=== PATIENT | female | born 1940 | race Caucasian/White ===

== ENCOUNTER → 2017-04-11 | Outpatient (CLI) | payer OTHER ==
[~2017-04-11] MED LIST: ASPI81TA21 PO; CHOL2000 PO; CHOL4POW6 PO; COLON HEALTH PO; CYAN10005 PO; DILT-115 PO; DIPH25CA5 PO; LISI10TA PO; MULT-506 PO; PRLSR20 PO; SIMV20TA2 PO; TYLOTC500 PO
--- NOTE | 2017-04-11 10:55 | DIAGNOSTIC IMAGING REPORT ---
KUB HISTORY: Bilateral kidney stones. Follow-up study. N20.0 [id number] COMPARISON: KUB 02/17/2016. FINDINGS: The bowel gas pattern is non-obstructive. There is no organomegaly. Left-sided nephrolithiasis again seen measuring up to 6 mm. Multiple phleboliths redemonstrated. No definite right nephrolithiasis or ureteral calculi identified. No pneumoperitoneum or pneumatosis. No fracture. Surgical clips of the right upper abdomen suggest prior cholecystectomy. IMPRESSION: Stable appearance of left-sided nephrolithiasis. Electronically signed by: Derek Alcaraz M.D. 04/11/2017 10:54 AM Dictated Date/Time: 04/11/2017 10:52 AM
== END | disposition home or self-care (01) ==
LOC: C.RAD 10:28
PROVIDERS: ATTEND Urology
DX: N20.0 Calculus of kidney (principal)

== ENCOUNTER 2017-09-23 18:14 | Emergency (ER) | payer OTHER ==
[~2017-09-23] VITALS: Ht 160 cm; Wt 84.3 kg
[~2017-09-23 18:14] MED LIST changes: +ASPI-319 PO; -ASPI81TA21 PO
[2017-09-23 18:39] VITALS: TEMP 36.8; Ht 160 cm; Wt 84.3 kg
[2017-09-23 20:14] LABS: BASO % 0.1 %; BASO ABS # 0.02 K/uL (0-0.2); EOS % 0.1 %; EOS ABS # 0.02 K/uL (0-0.5); HEMATOCRIT 39.1 % (37-47); HEMOGLOBIN 13.2 g/dL (12.0-16.0); IG# 0.04 K/uL (0.00-0.02); LYMPH % 13.5 %; LYMPH ABS # 1.81 K/uL (1.2-3.4); MEAN CELL VOLUME 91.4 fL (80-100); MEAN CORPUSCULAR HEMOGLOBIN 30.8 pg (25-34); MEAN CORPUSCULAR HGB CONC 33.8 g/dl (32-36); MONO % 7.5 %; NEUT % 78.5 %; NEUT ABS # 10.49 K/uL (1.4-6.5); PLATELET COUNT 263 K/uL (130-400); RED CELL DISTRIBUTION WIDTH CV 13.6 % (11.5-14.5); WHITE BLOOD COUNT 13.38 K/uL (4.8-10.8)
[2017-09-23] MEDS ORDERED: CEFTRIAXONE SOD INJ 1 GM ADDVIAL IV STA (20:23)
[2017-09-23] MEDS ORDERED: CEFD300C2 PO (20:36)
--- NOTE | 2017-09-23 20:37 | EMERGENCY ROOM VISIT NOTE ---
ED Visit Note First contact with patient: 18:51 CHIEF COMPLAINT: Dysuria HISTORY OF PRESENT ILLNESS: This 77-year-old female patient presents to the emergency department, ambulatory, complaining of dysuria which began last night. The patient states she did have similar symptoms approximately 2 weeks ago, and was started on ciprofloxacin by her PCP. She states when the culture grew, she was contacted by her PCP and advised the ciprofloxacin was resistant. The patient states by that time, she was feeling improved on the antibiotic, so declined a change in antibiotics. She states she was fine for approximately 1 week, however the symptoms returned yesterday. The patient has been taking Pyridium as prescribed by her PCP, but states it has not been helping significantly with her symptoms. She does have a history of recurrent kidney stones and was seeing a urologist, but states this is completely different than when she experiences kidney stones, as with stones she gets fever and abdominal pain. She has not been febrile. She denies any flank pain, but does have mild suprapubic discomfort. She does report a cystocele, but does not have any treatment. She describes constant pain in the urethra that radiates up into the bladder. She does have urinary frequency and urgency. She states her urine is cloudy, but denies any foul smell. REVIEW OF SYSTEMS: A 10 system review of systems was performed with positives and pertinent negatives listed in the history of present illness. All other systems were reviewed and are negative. ALLERGIES: Amoxicillin, penicillin MEDICATIONS: Zocor, vitamins, Prilosec, diltiazem PMH: Hyperlipidemia, GERD SOCIAL HISTORY: Patient lives locally with family. She denies drug, alcohol, tobacco use. PHYSICAL EXAM: VITALS: Vitals are noted on the nurse's note and reviewed by myself. Vital signs stable, with slightly elevated blood pressure. GENERAL: This is a 77-year-old white female, in no acute distress, nondiaphoretic, well-developed well-nourished. SKIN: The skin was without rashes, erythema, edema, or bruising. There is no tenting of the skin. Capillary reflex less than 2 seconds. HEAD: Normocephalic atraumatic. EARS: External auditory canals clear, tympanic membranes pearly hernández without erythema or effusion bilaterally. EYES: Pupils equal round and reactive to light and accommodation. Conjunctivae without injection, sclerae without icterus. Extraocular movements intact. NOSE: Patent, turbinates without inflammation or discharge. No sinus tenderness. MOUTH: Mucous membranes moist. Tonsils are not enlarged. Pharynx without erythema or exudate. Uvula midline. Airway patent. Tongue does not deviate. NECK: Supple without nuchal rigidity. No lymphadenopathy. No thyromegaly. Cervical spine is nontender. No JVD. HEART: Regular rate and rhythm without murmurs gallops or rubs. LUNGS: Clear to auscultation bilaterally without wheezes, rales or rhonchi. No dullness to percussion. No retractions or accessory muscle use. ABDOMEN: Positive bowel sounds x 4. Normal tympanic percussion. Mild suprapubic tenderness. The abdomen was otherwise soft, nontender, without masses or organomegaly. Saxena sign negative. No guarding or rebound tenderness. No CVA tenderness. MUSCULOSKELETAL: No muscle atrophy, erythema, or edema noted. Full range of motion without joint tenderness in all extremities. No tenderness to palpation. Normal gait. Strength 5/5 throughout. NEURO: Patient was alert and oriented to person place and time. Normal sensation to light and sharp touch. Deep tendon reflexes 2+ throughout. No focal neurological deficits. EMERGENCY DEPARTMENT COURSE: The patient was seen and evaluated as above. Previous medical records were obtained and reviewed. The patient's previous urine culture did grow beta Streptococcus group B and E. coli. This was susceptible to ceftriaxone and cefepime. It was resistant to ciprofloxacin. Due to the similar history of symptoms 2 weeks ago and proper management with ciprofloxacin, basic labs were obtained. Patient slight leukocytosis of 13, 000. There is no significant anemia or thrombocytopenia. The patient's renal function and electrolytes were normal. Urinalysis was positive for 2+ occult blood, nitrates, leukocyte esterase, and 1+ bacteria. Based on the patient's symptoms and symptoms consistent with previous stone, imaging was deferred. The patient does have a follow-up appointment on Tuesday with her PCP. She was given 1 g Rocephin IV here in the emergency department. She will be discharged on Omnicef with close outpatient follow-up by her PCP. The patient was agreeable to this assessment and plan. The patient was seen and evaluated by Dr. Rowland, who was agreeable to the assessment and plan. Discharge instructions reviewed, patient was discharged home in good condition. I attest that I have personally reviewed the patient's current medication list. Blood Pressure Screening: Patient was found to have a slightly elevated blood pressure due to circumstances. I do not believe that the patient requires hypertension monitoring. Etiologies such as renal colic, appendicitis, diverticulitis, mesenteric ischemia, aortic pathology, infections, inflammatory bowel disease, PUD, biliary pathology, UTI, as well as others were entertained. DIAGNOSIS: UTI The chart was completed utilizing [employer] Speech voice recognition software. Grammatical errors, random word insertions, pronoun errors, and incomplete sentences are an occasional consequence of this system due to software limitations, ambient noise, and hardware issues. Any formal questions or concerns about the content, text, or information contained within the body of this dictation should be directly addressed to the provider for clarification. Problem List Medical Problems: (1) Benign hypertension Status: Chronic (2) DIAB HOMERO WO COMPL, TYPE II OR UNSPEC TYPE, NOT UNCNTRLD Status: Chronic (3) Dyslipidemia Status: Chronic (4) s/p cystoscopies and stent placement Status: Resolved (5) s/p hysterectomy Status: Resolved (6) s/p lithotripsies Status: Resolved Current/Historical Medications Scheduled Aspirin Enteric Coated (Ecotrin Or Generic), 81 MG PO DAILY Cefdinir (Omnicef), 300 MG PO Q12H Cholecalciferol (Vitamin D3), 1 TAB PO DAILY Cholestyramine Powder (Questran Powder Light), 4 GM PO DAILY Cyanocobalamin (Vitamin B-12), 1,000 MCG PO DAILY Diltiazem Hcl Ext Rel (Tiazac), 240 MG PO DAILY Diphenhydramine Hcl (Benadryl), 25 MG PO DAILY Lisinopril (Prinivil), 10 MG PO DAILY Multivitamin (Multivitamin), 1 TAB PO DAILY Omeprazole (Prilosec), 20 MG PO DAILY Simvastatin (Zocor), 20 MG PO HS [Colon Health], 1 TAB PO DAILY Scheduled PRN Acetaminophen (Tylenol), 1,000 MG PO Q4 PRN for Pain Allergies Coded Allergies: Penicillins (Verified Allergy, Intermediate, RASH ALL OVER BODY, 09/23/17) PENNICILLILN ALSO Amoxicillin (Unverified Allergy, Unknown, HIVES, 09/23/17) Vital Signs Date Time Temp Pulse Resp B/P (MAP) Pulse Ox O2 Delivery O2 Flow Rate FiO2 09/23/17 21:45 96 20 163/74 99 09/23/17 18:39 36.8 96 20 163/74 99 Room Air Laboratory Results 09/23/17 20:05 Red Blood Count 4.28, Mean Corpuscular Volume 91.4, Mean Corpuscular Hemoglobin 30.8, Mean Corpuscular Hemoglobin Concent 33.8, Mean Platelet Volume 10.0, Neutrophils (%) (Auto) 78.5, Lymphocytes (%) (Auto) 13.5, Monocytes (%) (Auto) 7.5, Eosinophils (%) (Auto) 0.1, Basophils (%) (Auto) 0.1, Neutrophils # (Auto) 10.49, Lymphocytes # (Auto) 1.81, Monocytes # (Auto) 1.00, Eosinophils # (Auto) 0.02, Basophils # (Auto) 0.02 09/23/17 20:05 Test 09/23/17 18:40 09/23/17 20:05 Urine Color DK YELLOW Urine Appearance CLOUDY (CLEAR) Urine pH 8.0 (4.5-7.5) Urine Specific [place] 1.007 (1.000-1.030) Urine Protein 2+ (NEG) Urine Glucose (UA) NEG (NEG) Urine Ketones NEG (NEG) Urine Occult Blood 2+ (NEG) Urine Nitrite POS (NEG) Urine Bilirubin NEG (NEG) Urine Urobilinogen NEG (NEG) Urine Leukocyte Esterase LARGE (NEG) Urine WBC (Auto) >30 /hpf (0-5) Urine RBC (Auto) 0-4 /hpf (0-4) Urine Hyaline Casts (Auto) 1-5 /lpf (0-5) Urine Epithelial Cells (Auto) 0-5 /lpf (0-5) Urine Bacteria (Auto) 1+ (NEG) Urine Pathogenic Casts /lpf (0) White Blood Count 13.38 K/uL (4.8-10.8) Red Blood Count 4.28 M/uL (4.2-5.4) Hemoglobin 13.2 g/dL (12.0-16.0) Hematocrit 39.1 % (37-47) Mean Corpuscular Volume 91.4 fL (80-100) Mean Corpuscular Hemoglobin 30.8 pg (25-34) Mean Corpuscular Hemoglobin Concent 33.8 g/dl (32-36) Platelet Count 263 K/uL (130-400) Mean Platelet Volume 10.0 fL (7.4-10.4) Neutrophils (%) (Auto) 78.5 % Lymphocytes (%) (Auto) 13.5 % Monocytes (%) (Auto) 7.5 % Eosinophils (%) (Auto) 0.1 % Basophils (%) (Auto) 0.1 % Neutrophils # (Auto) 10.49 K/uL (1.4-6.5) Lymphocytes # (Auto) 1.81 K/uL (1.2-3.4) Monocytes # (Auto) 1.00 K/uL (0.11-0.59) Eosinophils # (Auto) 0.02 K/uL (0-0.5) Basophils # (Auto) 0.02 K/uL (0-0.2) RDW Standard Deviation 45.0 fL (36.4-46.3) RDW Coefficient of Variation 13.6 % (11.5-14.5) Immature Granulocyte % (Auto) 0.3 % Immature Granulocyte # (Auto) 0.04 K/uL (0.00-0.02) Anion Gap 8.0 mmol/L (3-11) Est Creatinine Clear Calc Drug Dose 43.4 ml/min Estimated GFR () 56.5 Estimated GFR (Non- 48.8 BUN/Creatinine Ratio 13.6 (10-20) Calcium Level 9.4 mg/dl (8.5-10.1) Chemistry Specimen Hemolysis Medications Administered Medications (Trade) Dose Ordered Sig/Lázaro Route Start Time Stop Time Status Last Admin Dose Admin Ceftriaxone Sodium (Rocephin Inj) 1 gm NOW STAT IV 09/23/17 20:23 09/23/17 20:24 DC 09/23/17 20:43 1 GM Departure Information Impression Primary Impression: Urinary tract infection Dispostion Home / Self-Care Condition GOOD Prescriptions Cefdinir (OMNICEF) 300 Mg Cap 300 MG PO Q12H for 7 Days, #14 CAP Prov: Mercedez Cole, KAREL 09/23/17 Referrals Lamont Mckeon M.D. (PCP) Patient Instructions ED UTI Cystitis Female, My [facility] Additional Instructions You have been treated in the Emergency Department for a Urinary Tract Infection (UTI). You have been given a dose of Rocephin here in the emergency department. Please monitor for any signs of allergic reaction or side effects. You have been prescribed Omnicef to be taken twice daily for 7 days. It is imperative for you to follow-up with your PCP for urine recheck towards the end of the course, as you may need to have this antibiotic extended out longer. This is an antibiotic. All antibiotics have the potential to cause diarrhea. Stop this medication and contact a medical provider if you were to develop any significant adverse side effects including: wheezing, shortness of breath, passing out, vomiting, or a diffuse rash. Always take antibiotics as directed and COMPLETE the ENTIRE course regardless of the improvement of your symptoms. Take the Pyridium as prescribed by your PCP. This medicine will help with the urinary symptoms that you have been experiencing. Be aware that Pyridium may turn your urine a red-orange or brown color. This effect is harmless. Drink plenty of water and stay well hydrated. As with any trip to the Emergency Department, you should follow-up with your Primary Care Provider from today's visit. Return to the emergency department if your symptoms persist despite treatment plan outlined above or if the following symptoms occur: increased fevers, chills , low back pain, nausea/vomiting, or blood in your urine. Problem Qualifiers Primary Impression: Urinary tract infection Urinary tract infection type: acute cystitis Hematuria presence: with hematuria Qualified Codes: N30.01 - Acute cystitis with hematuria
[2017-09-23 20:46] LABS: CALCIUM 9.4 mg/dl (8.5-10.1); CREATININE 1.08 mg/dl (0.60-1.20); POTASSIUM 3.9 mmol/L (3.5-5.1)
[2017-09-23 21:45] VITALS: BP 163/74; PULSE 96; O2SAT 99
--- NOTE | 2017-09-23 23:24 | EMERGENCY ROOM VISIT NOTE ---
ED Visit Note First contact with patient: 18:51 I have personally evaluated this patient examined her and reviewed the pertinent labs and data. I have discussed the case with Mercedez Cole, the physician roofer assistant and agree with the plan. Please refer to the PA note This patient comes in with urinary symptoms. Urinalysis does suggest UTI. She was given i.v. Rocephin and will be sent home on a corresponding Omnicef. She tolerated this well. Clinically, she has nothing to suggest pyelonephritis and on my exam she appears very comfortable and nontoxic. She has nothing to suggest a concomitant kidney stone . she has no flank pain . she has had kidney stones before and says this feels different. It sounds like she did have a partially treated UTI that came back. She looks well and wants to go home is well-hydrated nontoxic and non-lethargic appearing. She will have close follow- up with her doctor or return to the ER if any problems over the weekend.
== END 2017-09-23 21:46 | disposition home or self-care (01) ==
LOC: C.EDB 18:14 → C.EDD 21:46
DX: N39.0 Urinary tract infection, site not specified (principal); Z88.0 Allergy status to penicillin; E78.5 Hyperlipidemia, unspecified; E11.9 Type 2 diabetes mellitus without complications; K21.9 Gastro-esophageal reflux disease without esophagitis; I10 Essential (primary) hypertension; Z79.899 Other long term (current) drug therapy; Z90.710 Acquired absence of both cervix and uterus; Z87.442 Personal history of urinary calculi; Z79.82 Long term (current) use of aspirin

== ENCOUNTER → 2017-10-17 | Outpatient (CLI) | payer OTHER ==
--- NOTE | 2017-10-17 15:58 | DIAGNOSTIC IMAGING REPORT ---
KUB CLINICAL HISTORY: 77 years-old Female presenting with N20.0 Nephrolithiasis. TECHNIQUE: Single supine view of the abdomen was obtained. COMPARISON: 04/11/[address] from 01/25/2016. FINDINGS: Cholecystectomy clips noted. Nonobstructive bowel gas pattern. No gross pneumoperitoneum. Multifocal left renal calculi again noted. No convincing evidence of right renal calculi. Multiple phleboliths in the lower abdomen and pelvis unchanged in distribution. No radiographic evidence of ureteral calculi. Splenic arterial calcification evident. Degenerative changes of the spine. Laminectomy defects at L4-L5. Lung bases clear. IMPRESSION: 1. Left nephrolithiasis unchanged from prior. No radiographic evidence of right renal or ureteral calculi. Electronically signed by: Jason Milton M.D. 10/17/2017 3:57 PM Dictated Date/Time: 10/17/2017 3:55 PM
== END | disposition home or self-care (01) ==
LOC: C.RAD 15:15
PROVIDERS: ATTEND Urology
DX: N20.0 Calculus of kidney (principal)

== ENCOUNTER 2019-02-05 16:48 | Inpatient (IN) ==
[2019-02-05] MEDS ORDERED: SODIUM CHLORIDE 0.9% 1000ML 1,000 ML IV SCH (17:45)
--- NOTE | 2019-02-05 17:59 | XRay Report ---
XR chest 1V portable CLINICAL HISTORY: Sepsis COMPARISON STUDY: No previous studies for comparison. FINDINGS: Mild cardiac megaly. Small parenchymal infiltrate left lung base. Lungs otherwise appear cl ear. IMPRESSION: Small parenchymal infiltrate left base. The above report was generated using voice recognition software. It may contain grammatical, syntax or spelling errors. Electronically signed by: Fuentes Rodriguez M.D. 02/05/2019 5:57 PM
[2019-02-05 18:27] LABS: Basophils # (auto) 0.03 K/uL (0-0.2); Basophils % (auto) 0.2 %; Eosinophils # (auto) 0.02 K/uL (0-0.5); Eosinophils % (auto) 0.2 %; Hematocrit (blood only) 33.2 % (37-47); Hemoglobin 11.2 g/dL (12.0-16.0); Immature Granulocytes # (auto) 0.04 K/uL (0.00-0.02); Immature Granulocytes % (auto) 0.3 %; Lymphocytes # (auto) 1.21 K/uL (1.2-3.4); Lymphocytes % (auto) 9.8 %; Mean Corpuscular Hemoglobin 30.1 pg (25-34); Mean Corpuscular Hgb Conc 33.7 g/dL (32-36); Mean Corpuscular Volume 89.2 fL (80-100); Mean Platelet Volume 9.5 fL (7.4-10.4); Monocytes # (auto) 1.13 K/uL (0.11-0.59); Monocytes % (auto) 9.2 %; Neutrophils # (auto) 9.89 K/uL (1.4-6.5); Neutrophils % (auto) 80.3 %; Platelet Count 327 K/uL (130-400); RDW Coefficient of Variation 14.1 % (11.5-14.5); RDW Standard Deviation 46.3 fL (36.4-46.3); Red Blood Count 3.72 M/uL (4.2-5.4); White Blood Count 12.32 K/uL (4.8-10.8)
[2019-02-05 18:37] LABS: Partial Thromboplastin Ratio 1.1; Partial Thromboplastin Time 29.9 Seconds (21.0-31.0); Prothrombin Time 10.5 Seconds (9.0-12.0)
[2019-02-05 18:38] LABS: Appearance Urine Clear (Clear); Bacteria Urine Automated 4+ (Negative); Bilirubin Urine Negative (Negative); Blood Urine Negative (Negative); Cast Urine Automated 0 /lpf (0-5); Color Urine Yellow; Epithelial Cell Urine Auto 0-5 /lpf (0-5); Glucose Urine UA Negative (Negative); Ketones Urine Negative (Negative); Leukocyte Esterase Urine 3+ (Negative); Nitrite Urine Negative (Negative); Protein Urine Negative (Negative); RBC Urine Automated 0-4 /hpf (0-4); Urobilinogen Urine Negative (Negative); WBC Urine Automated >30 /hpf (0-5); pH Urine 6.5 (4.5-7.5)
[2019-02-05 18:53] LABS: Albumin Level 2.9 gm/dl (3.4-5.0); BUN Creatinine Ratio 10.6 (10-20); Calcium 8.9 mg/dl (8.5-10.1); Creatinine Clr Calc Pharmacy 38.4 ml/min; Est GFR (African American) 52.6; Est GFR (Non-African American) 45.4; Potassium 3.8 mmol/L (3.5-5.1)
[2019-02-05 18:56] LABS: Albumin Globulin Ratio 0.6 (0.9-2); Bilirubin,Total 0.5 mg/dl (0.2-1); Globulin 4.9 gm/dl (2.5-4.0); Total Protein 7.8 gm/dl (6.4-8.2)
[2019-02-05] MEDS ORDERED: IOVERSOL 100ml IV PRN (19:25)
[2019-02-05] MEDS ORDERED: cefTRIAXone SODIUM 2,000 MG/70 ML BAG IV STA (19:27)
--- NOTE | 2019-02-05 19:34 | CT Scan Report ---
CT abd pelvis IV con only CT DOSE: 669.20 mGy.cm HISTORY: Pain. Fever. ab pain, fever TECHNIQUE: Multiaxial CT images of the abdomen and pelvis were performed following the use of intrave nous contrast. A dose lowering technique was utilized adhering to the principles of ALARA. COMPARISON STUDY: 01/25/2016 FINDINGS: Lung bases remain clear. Liver spleen and pancreas are considered unremarkable. Stable right renal cyst. Prominent right renal pelvis unchanged from the prior study. Findings of mildly progressive left hydroureteronephrosis compared to the prior study. 1 cm obstructi ng calculus mid left ureter. Mild superimposed uroepithelial thickening of the left ureter suggesting superimposed inflammatory process. Findings of chronic colonic diverticulosis. No evidence for acute diverticulitis. Bladder is midline. Nonobstructive bowel pattern. Normal appendix. IMPRESSION: 1. 1 cm obstructing calculus mid left ureter. 2. Progressive left hydroureteronephrosis compared to the prior study. 3. Multiple bilateral nonobstructing renal calcifications. 4. Moderate left uroepithelial thickening suggesting a superimposed inflammatory process. 5. Chronic colonic diverticulosis. The above report was generated using voice recognition software. It may contain grammatical, syntax or spelling errors. Electronically signed by: Fuentes Rodriguez M.D. 02/05/2019 7:32 PM
[2019-02-05] MEDS ORDERED: MoRPHine SULFATE 4 MG/ML 1 ML CARP\\VIAL ONE (19:35)
[2019-02-05] MEDS ORDERED: ACETAMINOPHEN 500 MG TAB PO STA (19:58)
[2019-02-05] MEDS ORDERED: SODIUM CHLORIDE 0.9% 1000ML 1,000 ML IV ONE (19:59)
[2019-02-05] MEDS ORDERED: SODIUM CHLORIDE 0.9% 500 ML IV SCH (20:30)
--- NOTE | 2019-02-05 20:46 | Anesthesiology Consultation ---
Date of Service February 05, 2019 History Surgery Operation Date: 02/05/19 20:30 Proposed Procedures p Cystoscopy - Yaw Lucero MD s Ureteral Stent Insertion/Removal(Left) - Yaw Lucero MD Height/Weight Height: 5 ft 3 in Weight: 76 kg Allergies Allergy/AdvReac Type Severity Reaction Status Date / Time Penicillins Allergy Intermediate RASH ALL Verified 02/05/19 18:21 OVER BODY amoxicillin Allergy Unknown HIVES Unverified 02/05/19 18:21 Medications Home Medications Medication Instructions Recorded Confirmed Last Taken simvastatin 20 mg PO HS #0 12/18/10 02/05/19 02/04/19 aspirin 81 mg PO HS #0 09/25/11 02/05/19 02/04/19 multivitamin 1 tab PO QAM #0 09/25/11 02/05/19 02/05/19 COLON HEALTH 1 tab PO QAM #0 03/05/14 02/05/19 02/05/19 acetaminophen [Tylenol Extra 1,000 mg PO Q4H PRN #0 tab 03/05/14 02/05/19 02/05/19 Strength] cholecalciferol (vitamin D3) 1,000 unit PO QAM #0 03/05/14 02/05/19 02/05/19 cyanocobalamin (vitamin B-12) 1,000 mcg PO QAM #0 tab 03/05/14 02/05/19 02/05/19 diphenhydramine HCl [Benadryl] 25 mg PO QAM #0 cap 01/25/16 02/05/19 02/05/19 lisinopril 10 mg PO QAM #0 tab 01/25/16 02/05/19 02/05/19 omeprazole 20 mg PO HS #0 cap 01/25/16 02/05/19 Unknown ciprofloxacin HCl 500 mg PO UD 02/05/19 02/05/19 Unknown diltiazem HCl [DILT-XR] 240 mg PO QPM 02/05/19 02/05/19 02/04/19 raloxifene 60 mg PO QPM 02/05/19 02/05/19 Unknown Active Medications Generic Name Dose Route Start Last Admin Trade Name Freq PRN Reason Stop Dose Admin Ioversol 96 ml 02/05/19 19:25 02/05/19 19:26 Optiray 320 100ml IV 02/09/19 19:24 96 ml ONCE PRN Administration Interaction Checking Past Medical History Medical History UTI (urinary tract infection) (Acute) Kidney stone (Acute) Calculus in pelviureteric junction (Acute 12/19/10) Lumbar spinal stenosis (Acute 03/28/14) Hyperlipidemia Hypertension Past Surgical History Surgical History H/O: section (Resolved) Social History Smoking Status: Never smoker Physical Exam Vital Signs Last Vital Signs Temp 37.9 C H 02/05/19 17:19 Pulse 94 H 02/05/19 20:30 Resp 30 H 02/05/19 20:30 BP 139/67 02/05/19 20:30 Pulse Ox 93 02/05/19 20:30 Testing Laboratory Results 02/05/19 18:13 02/05/19 18:13 PT 10.5 Seconds (9.0-12.0) 02/05/19 18:13 INR 1.0 (0.9-1.1) 02/05/19 18:13 APTT 29.9 Seconds (21.0-31.0) 02/05/19 18:13 Urine Color Yellow 02/05/19 18:13 Urine Appearance Clear (Clear) 02/05/19 18:13 Urine pH 6.5 (4.5-7.5) 02/05/19 18:13 Ur Specific [place] 1.010 (1.000-1.030) 02/05/19 18:13 Urine Protein Negative (Negative) 02/05/19 18:13 Urine Glucose (UA) Negative (Negative) 02/05/19 18:13 Urine Ketones Negative (Negative) 02/05/19 18:13 Urine Nitrite Negative (Negative) 02/05/19 18:13 Ur Leukocyte Esterase 3+ (Negative) H 02/05/19 18:13 Urine WBC (Auto) >30 /hpf (0-5) H 02/05/19 18:13 Urine RBC (Auto) 0-4 /hpf (0-4) 02/05/19 18:13 U Hyaline Cast (Auto) 0 /lpf (0-5) 02/05/19 18:13 U Epithel Cells (Auto) 0-5 /lpf (0-5) 02/05/19 18:13 Urine Bacteria (Auto) 4+ (Negative) H 02/05/19 18:13
--- NOTE | 2019-02-05 21:02 | Anesthesiology Consultation ---
Date of Service February 05, 2019 Assessment & Plan Chart Review Chart Review: Acceptable Risk for Surgery Consults Requested none ASA [id number] Proposed Anesthesia Anesthesia Type: General and MAC Risk / Benefits Reviewed With: PT / POA / Parent / Guardian, Accepts Plan and Informed Consent Obtained History Surgery Operation Date: 02/05/19 20:30 Proposed Procedures p Cystoscopy - Yaw Lucero MD s Ureteral Stent Insertion/Removal(Left) - Yaw Lucero MD Height/Weight Height: 5 ft 3 in Weight: 76 kg Allergies Allergy/AdvReac Type Severity Reaction Status Date / Time Penicillins Allergy Intermediate RASH ALL Verified 02/05/19 18:21 OVER BODY amoxicillin Allergy Unknown HIVES Unverified 02/05/19 18:21 Medications Home Medications Medication Instructions Recorded Confirmed Last Taken simvastatin 20 mg PO HS #0 12/18/10 02/05/19 02/04/19 aspirin 81 mg PO HS #0 09/25/11 02/05/19 02/04/19 multivitamin 1 tab PO QAM #0 09/25/11 02/05/19 02/05/19 COLON HEALTH 1 tab PO QAM #0 03/05/14 02/05/19 02/05/19 acetaminophen [Tylenol Extra 1,000 mg PO Q4H PRN #0 tab 03/05/14 02/05/19 02/05/19 Strength] cholecalciferol (vitamin D3) 1,000 unit PO QAM #0 03/05/14 02/05/19 02/05/19 cyanocobalamin (vitamin B-12) 1,000 mcg PO QAM #0 tab 03/05/14 02/05/19 02/05/19 diphenhydramine HCl [Benadryl] 25 mg PO QAM #0 cap 01/25/16 02/05/19 02/05/19 lisinopril 10 mg PO QAM #0 tab 01/25/16 02/05/19 02/05/19 omeprazole 20 mg PO HS #0 cap 01/25/16 02/05/19 Unknown ciprofloxacin HCl 500 mg PO UD 02/05/19 02/05/19 Unknown diltiazem HCl [DILT-XR] 240 mg PO QPM 02/05/19 02/05/19 02/04/19 raloxifene 60 mg PO QPM 02/05/19 02/05/19 Unknown Active Medications Generic Name Dose Route Start Last Admin Trade Name Freq PRN Reason Stop Dose Admin Ioversol 96 ml 02/05/19 19:25 02/05/19 19:26 Optiray 320 100ml IV 02/09/19 19:24 96 ml ONCE PRN Administration Interaction Checking NPO Date Last Intake of Fluids: 02/05/19 Time Last Intake of Fluids: 16:00 Last Intake of Fluids Comment: water only Date Last Intake of Solids: 02/05/19 Time Last Intake of Solids: 12:00 Last Intake of Solids Comment: saray aguilar Past Medical History Medical History UTI (urinary tract infection) (Acute) Kidney stone (Acute) Calculus in pelviureteric junction (Acute 12/19/10) Lumbar spinal stenosis (Acute 03/28/14) H/O: hysterectomy Hyperlipidemia Hypertension Exercise / Class Metabolic Activity II 4-5 Yardwork/Stairs/Walk up hill Past Surgical History Surgical History H/O: section (Resolved) H/O cystoscopy History of lumbar fusion Hx of cholecystectomy Past Anesthesia History No Hx of Anesthesia Complications and No Family Hx of Anesthesia Complications History of PONV No Hx of PONV Social History Smoking Status: Never smoker Do You Dip or Chew Tobacco: No Hx Alcohol Use: No Hx Substance Use: No Physical Exam Vital Signs Last Vital Signs Temp 37.9 C H 02/05/19 17:19 Pulse 94 H 02/05/19 20:30 Resp 30 H 02/05/19 20:30 BP 139/67 02/05/19 20:30 Pulse Ox 93 02/05/19 20:30 Constitutional not morbidly obese ENMT Mouth: no TMJ abnormality Thyromental Distance: > or= 3.5 Finger Breadths Mallampati Class: II Neck normal visual inspection and trachea midline; neck extension not limited Respiratory normal respiratory effort Auscultation: lungs clear to auscultation bilaterally Cardiovascular Rate/Rhythm: regular rate and regular rhythm Heart Sounds: no murmur Musculoskeletal Spine: normal cervical ROM Extremities: full ROM of extremities Neurologic moves all extremities Psychiatric Orientation: alert and oriented x 3 Testing Laboratory Results 02/05/19 18:13 02/05/19 18:13 PT 10.5 Seconds (9.0-12.0) 02/05/19 18:13 INR 1.0 (0.9-1.1) 02/05/19 18:13 APTT 29.9 Seconds (21.0-31.0) 02/05/19 18:13 Urine Color Yellow 02/05/19 18:13 Urine Appearance Clear (Clear) 02/05/19 18:13 Urine pH 6.5 (4.5-7.5) 02/05/19 18:13 Ur Specific [place] 1.010 (1.000-1.030) 02/05/19 18:13 Urine Protein Negative (Negative) 02/05/19 18:13 Urine Glucose (UA) Negative (Negative) 02/05/19 18:13 Urine Ketones Negative (Negative) 02/05/19 18:13 Urine Nitrite Negative (Negative) 02/05/19 18:13 Ur Leukocyte Esterase 3+ (Negative) H 02/05/19 18:13 Urine WBC (Auto) >30 /hpf (0-5) H 02/05/19 18:13 Urine RBC (Auto) 0-4 /hpf (0-4) 02/05/19 18:13 U Hyaline Cast (Auto) 0 /lpf (0-5) 02/05/19 18:13 U Epithel Cells (Auto) 0-5 /lpf (0-5) 02/05/19 18:13 Urine Bacteria (Auto) 4+ (Negative) H 02/05/19 18:13 Electrocardiogram Date: 02/05/19 Findings: + NSR @ (89) Chest X-Ray [place], [place] [phone] XRay Report Patient: JENNA BARBERAdmit Date: 02/05/19 MR#: [id number] Acct ID:[id number]: Date: 1940City Zip: [place] [address] Age: 78Location: ED Sex: F Room/Bed: Att Phy:Diagnosis: FEVER, STOMACH HURTS Yesy Phy: Lamont Mckeon M.D.Service Date: 02/05/19 [facility] Phy:Interpreting Phy: Fuentes Rodriguez MD Admit Phy: Ordering Phy: Benito Padgett M.D. cc: ~ XR chest 1V portable CLINICAL HISTORY: Sepsis COMPARISON STUDY: No previous studies for comparison. FINDINGS: Mild cardiac megaly. Small parenchymal infiltrate left lung base. Lungs otherwise appear clear. IMPRESSION: Small parenchymal infiltrate left base.
--- NOTE | 2019-02-05 21:03 | Urology Consultation ---
Date of Consultation February 05, 2019 Assessment & Plan (1) Kidney stone: Obstructing left ureteral stone - large; suspected infection - plan for emergent cysto and left stent placement now - rocephin administered in the ER - risks, benefits, and alternatives discussed - consent on the chart History of Present Illness History of Present Illness 78-year-old female with a history of kidney stones who presented to the emergency room with left flank pain, shaking chills, fevers Diagnosed with UTI earlier this weekstarted on antibiotics however her per symptoms progressed History of stones in the past, but no recent surgery Had an open nephro lithotomy/ureterolithotomy approximately 40 years ago Has additionally had ureteral stents placed and ESWL at various times Was most recently seen in the office in November, had a known large calculus of the left kidney but was asymptomatic and elected observation CT - signficant left hydro with some stranding, numerous intra-renal stones, large stone in the prox/mid ureter Allergies Allergy/AdvReac Type Severity Reaction Status Date / Time Penicillins Allergy Intermediate RASH ALL Verified 02/05/19 18:21 OVER BODY amoxicillin Allergy Unknown HIVES Unverified 02/05/19 18:21 Home Medications Home Medications Medication Instructions Recorded Confirmed Type simvastatin 20 mg PO HS #0 12/18/10 02/05/19 History aspirin 81 mg PO HS #0 09/25/11 02/05/19 History multivitamin 1 tab PO QAM #0 09/25/11 02/05/19 History COLON HEALTH 1 tab PO QAM #0 03/05/14 02/05/19 History acetaminophen [Tylenol Extra 1,000 mg PO Q4H PRN #0 tab 03/05/14 02/05/19 History Strength] cholecalciferol (vitamin D3) 1,000 unit PO QAM #0 03/05/14 02/05/19 History cyanocobalamin (vitamin B-12) 1,000 mcg PO QAM #0 tab 03/05/14 02/05/19 History diphenhydramine HCl [Benadryl] 25 mg PO QAM #0 cap 01/25/16 02/05/19 History lisinopril 10 mg PO QAM #0 tab 01/25/16 02/05/19 History omeprazole 20 mg PO HS #0 cap 01/25/16 02/05/19 History ciprofloxacin HCl 500 mg PO UD 02/05/19 02/05/19 History diltiazem HCl [DILT-XR] 240 mg PO QPM 02/05/19 02/05/19 History raloxifene 60 mg PO QPM 02/05/19 02/05/19 History Patient History Social History Preferred Language: Stateless marital status: current occupational status: retired Feels Safe at Home: Yes Smoking Status: Never smoker Do You Dip or Chew Tobacco: No ; Hx Alcohol Use: No Hx Substance Use: No Review of Systems Constitutional: + fever, + chills, + body aches and + fatigue Eyes: no worsening vision Ear, Nose, Mouth, Throat: no facial pain and no pain with swallowing Respiratory: no cough and no dyspnea Cardiovascular: no chest pain and no palpitations Gastrointestinal: no abdominal pain, no nausea and no vomiting Genitourinary: + dysuria, + difficulty urinating and + urinary frequency; no hematuria Musculoskeletal: no back pain Integumentary: no rash and no urticaria Neurologic: no gait abnormality and no unsteadiness Psychiatric: no behavioral changes and no depression Endocrine: no fatigue Physical Exam Physical Exam: Borderline tachycardic Mentating appropriately -somewhat nervous appearing Constitutional: well developed and well nourished Neck: neck nontender Respiratory: normal respiratory effort; no respiratory distress and does not use accessory muscles Cardiovascular: Rate/Rhythm: regular rate Vessels: radial pulses present Extremities: no edema Gastrointestinal (Abdomen): Inspection/Auscultation: abdomen normal to inspection Percussion/Palpation: + abdomen tender (Left flank) and abdomen soft; no guarding Musculoskeletal: Head/Neck/Chest: normocephalic and head atraumatic Extremities: extremities normal to inspection Skin: no rashes and no lesions Trauma: no evidence of skin trauma Neurologic: awake; not obtunded Speech / Cognition: normal speech Motor/Sensory: no tremor Psychiatric: Orientation: alert and oriented x 3 Lymphatic: no lymphadenopathy Results & Data Vital Signs (Past 12 Hours) Vital Signs Temp Pulse Pulse Resp BP BP Pulse Ox 02/05/19 20:30 94 H 30 H 139/67 93 02/05/19 20:00 96 H 23 147/63 H 95 02/05/19 19:32 93 H 19 02/05/19 19:30 93 H 22 157/64 H 02/05/19 19:29 93 H 22 149/66 H 02/05/19 19:20 96 H 20 157/64 H 97 02/05/19 19:00 93 H 18 02/05/19 18:30 95 H 24 02/05/19 18:21 91 H 22 02/05/19 18:16 95 02/05/19 17:19 37.9 C H 92 H 20 169/71 H 95 PG Care Time/CCT Total # of Minutes Spent Total Time Spent with Patient: Total time spent is greater than 50% in coordination of care (as documented) at patient's floor/unit and/or counseling patient:
[2019-02-05] MEDS ORDERED: MEPERIDINE HCL 25 MG/ML CARP IV PRN (21:04)
[2019-02-05] MEDS ORDERED: ePHEDrine sulfate 50 MG/ML AMP IV PRN (21:04)
[2019-02-05] MEDS ORDERED: fentaNYL citrate 100 MCG/2 ML VIAL IV PRN (21:04)
[2019-02-05] MEDS ORDERED: MoRPHine SULFATE 10 MG/ML CARP/VIAL IV PRN (21:04)
[2019-02-05] MEDS ORDERED: ONDANSETRON INJ 2 MG/ML 2 ML VIAL IV PRN ×2 (21:04→23:26)
[2019-02-05] MEDS ORDERED: ATROPINE SULFATE 0.1 MG/ML 10ML SYR IV PRN (21:04)
[2019-02-05] MEDS ORDERED: PROPOFOL IV EMULSION 10 MG/ML 20 ML VIAL IV ONE (21:12)
[2019-02-05] MEDS ORDERED: MIDAZOLAM HCL 1 MG/ML 2ML VIAL ONE (21:12)
[2019-02-05] MEDS ORDERED: LIDOCAINE HCL 2% 2 ML VIAL/AMP(20MG/ML) INFIL ONE (21:12)
[2019-02-05] MEDS ORDERED: fentaNYL citrate 100 MCG/2 ML VIAL ONE (21:12)
[2019-02-05] MEDS ORDERED: ONDANSETRON INJ 2 MG/ML 2 ML VIAL ONE (21:12)
--- NOTE | 2019-02-05 21:28 | Emergency Department Note ---
Entered by Lisa Marin acting as a scribe for History of Present Illness General Chief complaint: Fever Stated complaint: FEVER, STOMACH HURTS Time Seen by Provider: 02/05/19 17:41 Source: patient Mode of arrival: ambulatory Limitations: no limitations History of Present Illness Provider complaint: Abdominal pain Onset (ago): week(s) 1 Location: abdomen Pain Consistency: + constant Maximum Pain Intensity: 10 Quality: + other (pain) Relieved By: + none Associated symptoms: + fever/chills and + other (Additional symptoms: constipation. Denies: sore throat, hip pain, urinary symptoms); no cough and no rash The patient is an 78 year old white female w/ PMHx of kidney stones and a C- section who presents to the ED w/ CC of constant abdominal pain beginning about a week ago. The patient reports that her pain was initially intermittent but has now become constant. She states that it is located in her lower abdomen but that it is worse on the left. She also complains of fevers and constipation. She notes that her constipation has not improved with laxatives but that she is passing gas. The patient denies any cough, sore throat, hip pain, and rashes. She also denies any urinary symptoms and mentions that she is still on Ciprofloxacin as prescribed by her PCP for a UTI. She explains that she has taken 4 doses of Ciprofloxacin so far. Home Medications Home Medications Medication Instructions Recorded Confirmed Type simvastatin 20 mg PO HS #0 12/18/10 02/05/19 History aspirin 81 mg PO HS #0 09/25/11 02/05/19 History multivitamin 1 tab PO QAM #0 09/25/11 02/05/19 History [facility] 1 tab PO QAM #0 03/05/14 02/05/19 History acetaminophen [Tylenol Extra 1,000 mg PO Q4H PRN #0 tab 03/05/14 02/05/19 History Strength] cholecalciferol (vitamin D3) 1,000 unit PO QAM #0 03/05/14 02/05/19 History cyanocobalamin (vitamin B-12) 1,000 mcg PO QAM #0 tab 03/05/14 02/05/19 History diphenhydramine HCl [Benadryl] 25 mg PO QAM #0 cap 01/25/16 02/05/19 History lisinopril 10 mg PO QAM #0 tab 01/25/16 02/05/19 History omeprazole 20 mg PO HS #0 cap 01/25/16 02/05/19 History ciprofloxacin HCl 500 mg PO UD 02/05/19 02/05/19 History diltiazem HCl [DILT-XR] 240 mg PO QPM 02/05/19 02/05/19 History raloxifene 60 mg PO QPM 02/05/19 02/05/19 History Allergies Allergy/AdvReac Type Severity Reaction Status Date / Time Penicillins Allergy Intermediate RASH ALL Verified 02/05/19 18:21 OVER BODY amoxicillin Allergy Unknown HIVES Unverified 02/05/19 18:21 Past Med/Surg History Medical History UTI (urinary tract infection) (Acute) Kidney stone (Acute) Calculus in pelviureteric junction (Acute 12/19/10) Lumbar spinal stenosis (Acute 03/28/14) H/O: hysterectomy Hyperlipidemia Hypertension Surgical History H/O: section (Resolved) H/O cystoscopy History of lumbar fusion Hx of cholecystectomy Social History Preferred Language: Nepali Communication Ability: Effective Nursing Home Physician Required: No Beliefs That Will Affect Care: None marital status: Current Living Situation: Alone current occupational status: retired Feels Safe at Home: Yes Safety Concerns: Feels Safe At This Time Smoking Status: Never smoker Do You Dip or Chew Tobacco: No ; Hx Alcohol Use: No Hx Substance Use: No Review of Systems See HPI for pertinent positives & negatives. and A total of 10 systems reviewed and were otherwise negative Physical Exam Vital Signs Vital Signs - 24 hr 02/05/19 17:19 02/05/19 18:16 02/05/19 18:21 Temperature 37.9 C H Temperature Source Oral Sepsis Recent Fever Within 48 Hours No Sepsis New/Unexplained Change in Mental Status No Sepsis Action Taken by Nursing No Action Required Pulse Rate 92 H 91 H Pulse Rate [Apical] Pulse Rate [Right Apical] Pulse Rate from SpO2 Sensor Pulse Rhythm Regular Pulse Rhythm [Apical] Pulse Rhythm [Right Apical] Pulse Strength Normal Respiratory Rate 20 22 Respiratory Effort / Characteristics Non-Labored Spontaneous Respiratory Depth Normal Respiratory Pattern Regular Blood Pressure 169/71 H Blood Pressure [Right Arm] Blood Pressure Mean 103 Blood Pressure Mean [Right Arm] Blood Pressure Position [Right Arm] Pulse Oximetry 95 95 Oxygen Delivery Method Room Air Room Air Oxygen Flow Rate 02/05/19 18:30 02/05/19 19:00 02/05/19 19:20 Temperature Temperature Source Sepsis Recent Fever Within 48 Hours Sepsis New/Unexplained Change in Mental Status Sepsis Action Taken by Nursing Pulse Rate 95 H 93 H Pulse Rate [Apical] Pulse Rate [Right Apical] 96 H Pulse Rate from SpO2 Sensor Pulse Rhythm Pulse Rhythm [Apical] Pulse Rhythm [Right Apical] Regular Pulse Strength Respiratory Rate 24 18 20 Respiratory Effort / Characteristics Respiratory Depth Normal Respiratory Pattern Blood Pressure Blood Pressure [Right Arm] 157/64 H Blood Pressure Mean Blood Pressure Mean [Right Arm] 95 Blood Pressure Position [Right Arm] Pulse Oximetry 97 Oxygen Delivery Method Oxygen Flow Rate 02/05/19 19:29 02/05/19 19:30 02/05/19 19:32 Temperature Temperature Source Sepsis Recent Fever Within 48 Hours Sepsis New/Unexplained Change in Mental Status Sepsis Action Taken by Nursing Pulse Rate 93 H 93 H 93 H Pulse Rate [Apical] Pulse Rate [Right Apical] Pulse Rate from SpO2 Sensor Pulse Rhythm Pulse Rhythm [Apical] Pulse Rhythm [Right Apical] Pulse Strength Respiratory Rate 22 22 19 Respiratory Effort / Characteristics Respiratory Depth Respiratory Pattern Blood Pressure 149/66 H 157/64 H Blood Pressure [Right Arm] Blood Pressure Mean 93 95 Blood Pressure Mean [Right Arm] Blood Pressure Position [Right Arm] Pulse Oximetry Oxygen Delivery Method Oxygen Flow Rate 02/05/19 20:00 02/05/19 20:30 02/05/19 21:41 Temperature 37.0 C Temperature Source Temporal Artery Scan Sepsis Recent Fever Within 48 Hours Sepsis New/Unexplained Change in Mental Status Sepsis Action Taken by Nursing Pulse Rate 96 H 94 H Pulse Rate [Apical] 92 H Pulse Rate [Right Apical] Pulse Rate from SpO2 Sensor 98 H 94 H Pulse Rhythm Pulse Rhythm [Apical] Regular Pulse Rhythm [Right Apical] Pulse Strength Respiratory Rate 23 30 H 15 Respiratory Effort / Characteristics Non-Labored Spontaneous Respiratory Depth Normal Respiratory Pattern Regular Blood Pressure 147/63 H 139/67 Blood Pressure [Right Arm] 109/51 L Blood Pressure Mean 91 91 Blood Pressure Mean [Right Arm] 70 Blood Pressure Position [Right Arm] Semi-fowlers Pulse Oximetry 95 93 100 Oxygen Delivery Method Oxymask Oxygen Flow Rate 5 02/05/19 21:50 02/05/19 22:00 02/05/19 22:10 Temperature Temperature Source Sepsis Recent Fever Within 48 Hours Sepsis New/Unexplained Change in Mental Status Sepsis Action Taken by Nursing Pulse Rate Pulse Rate [Apical] 93 H 94 H 95 H Pulse Rate [Right Apical] Pulse Rate from SpO2 Sensor Pulse Rhythm Pulse Rhythm [Apical] Regular Regular Regular Pulse Rhythm [Right Apical] Pulse Strength Respiratory Rate 21 18 18 Respiratory Effort / Characteristics Non-Labored Spontaneous Non-Labored Spontaneous Non-Labored Spontaneous Respiratory Depth Normal Normal Normal Respiratory Pattern Regular Regular Regular Blood Pressure Blood Pressure [Right Arm] 122/52 L 132/53 L 129/45 L Blood Pressure Mean Blood Pressure Mean [Right Arm] 75 79 73 Blood Pressure Position [Right Arm] Semi-fowlers Semi-fowlers Semi-fowlers Pulse Oximetry 98 95 96 Oxygen Delivery Method Oxymask Nasal Cannula Nasal Cannula Oxygen Flow Rate 5 2 2 02/05/19 22:20 Temperature Temperature Source Sepsis Recent Fever Within 48 Hours Sepsis New/Unexplained Change in Mental Status Sepsis Action Taken by Nursing Pulse Rate Pulse Rate [Apical] 95 H Pulse Rate [Right Apical] Pulse Rate from SpO2 Sensor Pulse Rhythm Pulse Rhythm [Apical] Regular Pulse Rhythm [Right Apical] Pulse Strength Respiratory Rate 15 Respiratory Effort / Characteristics Non-Labored Spontaneous Respiratory Depth Normal Respiratory Pattern Regular Blood Pressure Blood Pressure [Right Arm] 123/57 L Blood Pressure Mean Blood Pressure Mean [Right Arm] 79 Blood Pressure Position [Right Arm] Semi-fowlers Pulse Oximetry 96 Oxygen Delivery Method Nasal Cannula Oxygen Flow Rate 2 GENERAL: Mildly uncomfortable in appearance, wearing glasses, well nourished, non-toxic. EYE EXAM: Normal conjunctiva. PERRL, no anisocoria and EOM's grossly intact w/o pain. OROPHARYNX: Dry mucous membranes. Grossly normal dentition. NECK: Supple, no nuchal rigidity, no adenopathy, non-tender. No signs of meningismus. LUNGS: Clear to auscultation. Normal chest wall mechanics. HEART: NSR, no MRG. ABDOMEN: Abdomen soft, normo-active bowel sounds, no masses, no rebound or guarding. Left sided and lower abdominal discomfort. BACK: Left-sided CVA TTP. SKIN: No rashes and no bruising. UPPER EXTREMITIES: Upper extremities are grossly normal. LOWER EXTREMITIES: No pitting edema. No calf pain. NEURO EXAM: A&O x3, cranial nerves II-XII grossly intact, normal speech, moves all 4 extremities on command w/o issue. Course 1747: The patient was evaluated in room C10, and a complete history and physical examination were performed. 1957: I checked on the patient and she stated that she feels better. I will discuss her case with [facility] urology. 2019: I reviewed the patient's case with Dr. Lucero - Urology. Dr. Lucero will come to see the patient. 2219: I reviewed the patient's case with Dr. Otero - Hospitalist. Dr. Otero will evaluate the patient for further management. Consultations Consultation #1: I reviewed the patient's case with Dr. Lucero - Urology. Dr. Lucero will come to see the patient. Time: 20:19 Consultation #2: I reviewed the patient's case with Dr. Otero - Hospitalist. Dr. Otero will evaluate the patient for further management. Time: 22:20 Administered Medications Discontinued Medications Acetaminophen (Tylenol) 1,000 mg PO NOW STA Stop: 02/05/19 19:59 Last Admin: 02/05/19 20:48 Dose: Not Given Documented by: [id number] Acetaminophen (Ofirmev) Confirm Administered Dose 1,000 mg IV .STK-MED ONE Stop: 02/05/19 22:37 Last Admin: 02/05/19 23:30 Dose: Not Given Documented by: [id number] Sodium Chloride (Nss 1000ml) 1,000 mls @ 999 mls/hr IV .Q1H1M REJI Stop: 02/05/19 18:45 Last Infusion: 02/05/19 19:43 Dose: 0 mls/hr Documented by: [id number] Admin: 02/05/19 18:39 Dose: 999 mls/hr Documented by: [id number] Ceftriaxone Sodium (Rocephin) 2,000 mg in 70 mls @ 140 mls/hr IV NOW STA Stop: 02/05/19 19:56 Last Infusion: 02/05/19 20:11 Dose: 0 mls/hr Documented by: [id number] Admin: 02/05/19 19:39 Dose: 140 mls/hr Documented by: [id number] Sodium Chloride (Nss 1000ml) 1,000 mls @ 999 mls/hr IV .Q1H1M ONE Stop: 02/05/19 20:59 Last Infusion: 02/05/19 20:48 Dose: 0 mls/hr Documented by: [id number] Admin: 02/05/19 20:00 Dose: 999 mls/hr Documented by: [id number] Sodium Chloride (Nss) 500 mls @ 125 mls/hr IV .Q4H REJI Stop: 03/07/19 20:29 Last Admin: 02/05/19 23:31 Dose: Not Given Documented by: [id number] Acetaminophen (Ofirmev) 1,000 mg in 100 mls @ 400 mls/hr IV NOW STA Stop: 02/05/19 22:49 Last Infusion: 02/05/19 23:30 Dose: 0 mls/hr Documented by: [id number] Admin: 02/05/19 22:41 Dose: 400 mls/hr Documented by: [id number] Ioversol (Optiray 320 100ml) 96 ml IV ONCE PRN PRN Reason: Interaction Checking Stop: 02/09/19 19:24 Last Admin: 02/05/19 19:26 Dose: 96 ml Documented by: [id number] Morphine Sulfate (Morphine Sulfate) Confirm Administered Dose 4 mg .ROUTE .STK- MED ONE Stop: 02/05/19 19:36 Last Admin: 02/05/19 19:39 Dose: 4 mg Documented by: [id number] Medical Decision Making Differential Diagnosis Differential diagnosis includes: appendicitis, diverticulitis, PUD, biliary pathology, UTI, pancreatitis, obstruction, mesenteric ischemia, aortic pathology, infections, inflammatory bowel disease, renal colic, as well as others were entertained. Medical Records Attestation: I reviewed the patient's medical records. Home Medications Current Medication List: was personally reviewed by me Laboratory Data Attestation: I reviewed the patient's lab results. Result diagrams: 02/05/19 18:13 02/05/19 18:13 Lab Results 02/05/19 02/05/19 02/05/19 Range/Units 18:13 18:13 18:13 WBC 12.32 H (4.8-10.8) K/uL RBC 3.72 L (4.2-5.4) M/uL Hgb 11.2 L (12.0-16.0) g/dL Hct 33.2 L (37-47) % MCV 89.2 (80-100) fL MCH 30.1 (25-34) pg MCHC 33.7 (32-36) g/dL RDW Std Deviation 46.3 (36.4-46.3) fL RDW Coeff of Taz 14.1 (11.5-14.5) % Plt Count 327 (130-400) K/uL MPV 9.5 (7.4-10.4) fL Immature Gran % (Auto) 0.3 % Neut % (Auto) 80.3 % Lymph % (Auto) 9.8 % [place] % (Auto) 9.2 % Eos % (Auto) 0.2 % Baso % (Auto) 0.2 % Immature Gran # (Auto) 0.04 H (0.00-0.02) K/uL Neut # (Auto) 9.89 H (1.4-6.5) K/uL Lymph # (Auto) 1.21 (1.2-3.4) K/uL [place] # (Auto) 1.13 H (0.11-0.59) K/uL Eos # (Auto) 0.02 (0-0.5) K/uL Baso # (Auto) 0.03 (0-0.2) K/uL PT 10.5 (9.0-12.0) Seconds INR 1.0 (0.9-1.1) APTT 29.9 (21.0-31.0) Seconds PTT Ratio 1.1 Sodium 137 (136-145) mmol/L Potassium 3.8 (3.5-5.1) mmol/L Chloride 105 (98-107) mmol/L Carbon Dioxide 24 (21-32) mmol/L Anion Gap 8.0 (3-11) BUN 12 (7-18) mg/dl Creatinine 1.14 (0.6-1.2) mg/dl Est Cr Clr Drug Dosing 38.4 ml/min Est GFR ( Amer) 52.6 Est GFR (Non-Af Amer) 45.4 BUN/Creatinine Ratio 10.6 (10-20) Glucose 121 H (70-99) mg/dl Lactate (0.4-2.0) mmol/L Calcium 8.9 (8.5-10.1) mg/dl Total Bilirubin 0.5 (0.2-1) mg/dl AST 22 (15-37) U/L ALT 22 (12-78) U/L Alkaline Phosphatase 68 (45-117) U/L Total Protein 7.8 (6.4-8.2) gm/dl Albumin 2.9 L (3.4-5.0) gm/dl Globulin 4.9 H (2.5-4.0) gm/dl Albumin/Globulin Ratio 0.6 L (0.9-2) Procalcitonin (0-0.5) ng/ml Urine Color Urine Appearance (Clear) Urine pH (4.5-7.5) Ur Specific [place] (1.000-1.030) Urine Protein (Negative) Urine Glucose (UA) (Negative) Urine Ketones (Negative) Urine Blood (Negative) Urine Nitrite (Negative) Urine Bilirubin (Negative) Urine Urobilinogen (Negative) Ur Leukocyte Esterase (Negative) Urine WBC (Auto) (0-5) /hpf Urine RBC (Auto) (0-4) /hpf U Hyaline Cast (Auto) (0-5) /lpf U Epithel Cells (Auto) (0-5) /lpf Urine Bacteria (Auto) (Negative) 02/05/19 02/05/19 02/05/19 Range/Units 18:13 18:13 18:13 WBC (4.8-10.8) K/uL RBC (4.2-5.4) M/uL Hgb (12.0-16.0) g/dL Hct (37-47) % MCV (80-100) fL MCH (25-34) pg MCHC (32-36) g/dL RDW Std Deviation (36.4-46.3) fL RDW Coeff of Taz (11.5-14.5) % Plt Count (130-400) K/uL MPV (7.4-10.4) fL Immature Gran % (Auto) % Neut % (Auto) % Lymph % (Auto) % [place] % (Auto) % Eos % (Auto) % Baso % (Auto) % Immature Gran # (Auto) (0.00-0.02) K/uL Neut # (Auto) (1.4-6.5) K/uL Lymph # (Auto) (1.2-3.4) K/uL [place] # (Auto) (0.11-0.59) K/uL Eos # (Auto) (0-0.5) K/uL Baso # (Auto) (0-0.2) K/uL PT (9.0-12.0) Seconds INR (0.9-1.1) APTT (21.0-31.0) Seconds PTT Ratio Sodium (136-145) mmol/L Potassium (3.5-5.1) mmol/L Chloride (98-107) mmol/L Carbon Dioxide (21-32) mmol/L Anion Gap (3-11) BUN (7-18) mg/dl Creatinine (0.6-1.2) mg/dl Est Cr Clr Drug Dosing ml/min Est GFR ( Amer) Est GFR (Non-Af Amer) BUN/Creatinine Ratio (10-20) Glucose (70-99) mg/dl Lactate 1.4 (0.4-2.0) mmol/L Calcium (8.5-10.1) mg/dl Total Bilirubin (0.2-1) mg/dl AST (15-37) U/L ALT (12-78) U/L Alkaline Phosphatase (45-117) U/L Total Protein (6.4-8.2) gm/dl Albumin (3.4-5.0) gm/dl Globulin (2.5-4.0) gm/dl Albumin/Globulin Ratio (0.9-2) Procalcitonin 0.13 (0-0.5) ng/ml Urine Color Yellow Urine Appearance Clear (Clear) Urine pH 6.5 (4.5-7.5) Ur Specific [place] 1.010 (1.000-1.030) Urine Protein Negative (Negative) Urine Glucose (UA) Negative (Negative) Urine Ketones Negative (Negative) Urine Blood Negative (Negative) Urine Nitrite Negative (Negative) Urine Bilirubin Negative (Negative) Urine Urobilinogen Negative (Negative) Ur Leukocyte Esterase 3+ H (Negative) Urine WBC (Auto) >30 H (0-5) /hpf Urine RBC (Auto) 0-4 (0-4) /hpf U Hyaline Cast (Auto) 0 (0-5) /lpf U Epithel Cells (Auto) 0-5 (0-5) /lpf Urine Bacteria (Auto) 4+ H (Negative) 02/05/19 Range/Units 21:07 WBC (4.8-10.8) K/uL RBC (4.2-5.4) M/uL Hgb (12.0-16.0) g/dL Hct (37-47) % MCV (80-100) fL MCH (25-34) pg MCHC (32-36) g/dL RDW Std Deviation (36.4-46.3) fL RDW Coeff of Taz (11.5-14.5) % Plt Count (130-400) K/uL MPV (7.4-10.4) fL Immature Gran % (Auto) % Neut % (Auto) % Lymph % (Auto) % [place] % (Auto) % Eos % (Auto) % Baso % (Auto) % Immature Gran # (Auto) (0.00-0.02) K/uL Neut # (Auto) (1.4-6.5) K/uL Lymph # (Auto) (1.2-3.4) K/uL [place] # (Auto) (0.11-0.59) K/uL Eos # (Auto) (0-0.5) K/uL Baso # (Auto) (0-0.2) K/uL PT (9.0-12.0) Seconds INR (0.9-1.1) APTT (21.0-31.0) Seconds PTT Ratio Sodium (136-145) mmol/L Potassium (3.5-5.1) mmol/L Chloride (98-107) mmol/L Carbon Dioxide (21-32) mmol/L Anion Gap (3-11) BUN (7-18) mg/dl Creatinine (0.6-1.2) mg/dl Est Cr Clr Drug Dosing ml/min Est GFR ( Amer) Est GFR (Non-Af Amer) BUN/Creatinine Ratio (10-20) Glucose (70-99) mg/dl Lactate 1.3 (0.4-2.0) mmol/L Calcium (8.5-10.1) mg/dl Total Bilirubin (0.2-1) mg/dl AST (15-37) U/L ALT (12-78) U/L Alkaline Phosphatase (45-117) U/L Total Protein (6.4-8.2) gm/dl Albumin (3.4-5.0) gm/dl Globulin (2.5-4.0) gm/dl Albumin/Globulin Ratio (0.9-2) Procalcitonin (0-0.5) ng/ml Urine Color Urine Appearance (Clear) Urine pH (4.5-7.5) Ur Specific [place] (1.000-1.030) Urine Protein (Negative) Urine Glucose (UA) (Negative) Urine Ketones (Negative) Urine Blood (Negative) Urine Nitrite (Negative) Urine Bilirubin (Negative) Urine Urobilinogen (Negative) Ur Leukocyte Esterase (Negative) Urine WBC (Auto) (0-5) /hpf Urine RBC (Auto) (0-4) /hpf U Hyaline Cast (Auto) (0-5) /lpf U Epithel Cells (Auto) (0-5) /lpf Urine Bacteria (Auto) (Negative) Imaging Data Radiologist's Impression: Radiology results as stated below per my review and the radiologist's interpretation: CT abd pelvis IV con only CT DOSE: 669.20 mGy.cm HISTORY: Pain. Fever. ab pain, fever TECHNIQUE: Multiaxial CT images of the abdomen and pelvis were performed following the use of intravenous contrast. A dose lowering technique was utilized adhering to the principles of ALARA. COMPARISON STUDY: 01/25/2016 FINDINGS: Lung bases remain clear. Liver spleen and pancreas are considered unremarkable. Stable right renal cyst. Prominent right renal pelvis unchanged from the prior study. Findings of mildly progressive left hydroureteronephrosis compared to the prior study. 1 cm obstructing calculus mid left ureter. Mild superimposed uroepithelial thickening of the left ureter suggesting superimposed inflammatory process. Findings of chronic colonic diverticulosis. No evidence for acute diverticulitis. Bladder is midline. Nonobstructive bowel pattern. Normal appendix. IMPRESSION: 1. 1 cm obstructing calculus mid left ureter. 2. Progressive left hydroureteronephrosis compared to the prior study. 3. Multiple bilateral nonobstructing renal calcifications. 4. Moderate left uroepithelial thickening suggesting a superimposed inflammatory process. 5. Chronic colonic diverticulosis. The above report was generated using voice recognition software. It may contain grammatical, syntax or spelling errors. Electronically signed by: Fuentes Rodriguez M.D. 02/05/2019 7:32 PM XR chest 1V portable CLINICAL HISTORY: Sepsis COMPARISON STUDY: No previous studies for comparison. FINDINGS: Mild cardiac megaly. Small parenchymal infiltrate left lung base. Lungs otherwise appear clear. IMPRESSION: Small parenchymal infiltrate left base. The above report was generated using voice recognition software. It may contain grammatical, syntax or spelling errors. Electronically signed by: Fuentes Rodriguez M.D. 02/05/2019 5:57 PM Blood Pressure Blood Pressure Findings: Elevated blood pressure Blood Pressure Disposition: further management by hospitalist KENNA Narrative The patient is an 78 year old white female w/ PMHx of kidney stones and a C- section who presents to the ED w/ CC of constant abdominal pain beginning about a week ago. Patient was seen and evaluated the bedside. The patient was complaining some abdominal pain is been ongoing was initially intermittent but has been more constant over the last several days. The patient does have some lower abdominal discomfort. The patient is recently on ciprofloxacin for history of UTI. The patient does not have any overlying skin changes. The patient has had some small BMs and is passing flatus. The patient is a prior history of cesareans but no other abdominal surgeries. Patient did have blood work completed along with a CT abdomen pelvis and urinalysis. Patient's blood work showed a mild white count with a left shift. Lactate is within normal limits as is the patient's kidney function. Patient does have a large 1 cm obstructing left-sided stone which would be consistent with her pain. Patient does meet sepsis criteria. The patient is febrile and does meet sepsis criteria I did page the hospitalist as well as the on-call urologist. Urologist did asked the patient made n.p.o. Patient was subsequently taken to the OR for a stent and stone retrieval. Impression & Plan Sepsis, Urinary tract obstruction by kidney stone, Ureterolithiasis Critical Care Time Critical Care Time: Yes Total Critical Care Time: 55 I have personally spent greater than 55 minutes of critical care time in direct management of this patient. This includes bedside care, interpretation of diagnostic studies, and testing, discussion with consultants, patient, and family members, and other require inpatient management activities. This 55 minutes is in excess of all separately billable procedures. Discharge Plan Visit Data Chief Complaint: Fever Stated Complaint: FEVER, STOMACH HURTS ED Provider: Benito Padgett Discharge Problem: Sepsis, Urinary tract obstruction by kidney stone, Ureterolithiasis Patient Disposition: Admitted As Inpatient Discharge Instructions Interventions: ED Discharge Assessment Last Done: 02/05/19 20:48 The scribe's documentation has been prepared under my direction and personally reviewed by me in its entirety. I confirm that the note above accurately reflects all work, treatment, procedures, and medical decision making performed by me.
--- NOTE | 2019-02-05 21:45 | Operative Report ---
Post Operative Report Pre & Post Diagnosis Operation Date: 02/05/19 20:30 Pre-Op Diagnosis: Septic; Kidney Stone Post-Op Diagnosis: Septic; Kidney Stone Procedure Operation Date: 02/05/19 20:30 Actual Procedures p Cystoscopy; Left ureteral stent placement - Yaw Lucero MD s Ureteral Stent Insertion/Removal(Left) - Yaw Lucero MD Surgeon Patricio Lucero MD Paleology Professor none Estimated Blood Loss 0 Findings Consistent with Post-Op Diagnosis Specimens none Description of Procedure The patient was identified in the preopertive holding area, appropriate informed consents were reviewed and completed and the patient was transferred to the operative suite. Prior to arrival she received a dose of Rocephin in the emergency room. Anesthesia was administered and the patient was placed in dorsal lithotomy position and prepped and draped in sterile fashion. To begin the case I passed a 22 [place] cystoscope with 30 degree lens. She has a notable cystocele. I was able to reduce the cystocele and inspect the bladder. There were no mucosal abnormalities. There was mucopurulent material protruding from the left ureteral orifice. I was able to cannulate this orifice with a sensor wire and a 5 [place] open-ended catheter. I advanced the wire to the kidney. There is resistance to the level of the stone but I was able to successfully bypass it. I then placed a 6 [place] by 26 cm double-J ureteral stent over the wire. I observed a good curl in the kidney as well as the bladder. Of note, immediately after removing the wire we saw grossly purulent urine draining rapidly through the stent. I irrigated her bladder several times and concluded the case. She was reversed from anesthesia and taken to the recovery room in stable condition. There were no complications. I attest to the content of the Intraoperative Record and any orders documented therein. Any exceptions are noted below.
--- NOTE | 2019-02-05 21:45 | Fluoroscopy Report ---
[place] cystogram CLINICAL HISTORY: CYSTOstent placement COMPARISON STUDY: CT same day FLUOROSCOPY TIME: 8 seconds NUMBER OF FLUOROSCOPIC IMAGES: 2 FINDINGS: Image intensifier was utilized for intraoperative stent placement purposes. IMPRESSION: Image intensifier utilized for intraoperative left ureteral stent placement The above report was generated using voice recognition software. It may contain grammatical, syntax or spelling errors. Electronically signed by: Fuentes Rodriguez M.D. 02/05/2019 9:43 PM
--- NOTE | 2019-02-05 22:33 | Anesthesiology Progress Note ---
Date of Service February 05, 2019 Anesthesia Post Procedure Vital Signs Vital Signs: Temp Pulse Pulse Pulse Resp BP BP 02/05/19 22:10 95 H 18 129/45 L 02/05/19 22:00 94 H 18 132/53 L 02/05/19 21:50 93 H 21 122/52 L 02/05/19 21:41 37.0 C 92 H 15 109/51 L 02/05/19 20:30 94 H 30 H 139/67 02/05/19 20:00 96 H 23 147/63 H 02/05/19 19:32 93 H 19 02/05/19 19:30 93 H 22 157/64 H 02/05/19 19:29 93 H 22 149/66 H 02/05/19 19:20 96 H 20 157/64 H 02/05/19 19:00 93 H 18 02/05/19 18:30 95 H 24 02/05/19 18:21 91 H 22 02/05/19 18:16 02/05/19 17:19 37.9 C H 92 H 20 169/71 H Pulse Ox 02/05/19 22:10 96 02/05/19 22:00 95 02/05/19 21:50 98 02/05/19 21:41 100 02/05/19 20:30 93 02/05/19 20:00 95 02/05/19 19:32 02/05/19 19:30 02/05/19 19:29 02/05/19 19:20 97 02/05/19 19:00 02/05/19 18:30 02/05/19 18:21 02/05/19 18:16 95 02/05/19 17:19 95 Pain Intensity Abdomen: Pain Intensity: 6 Transfer of Care Handoff Completed per policy Notes Mental Status: alert / awake / arousable and participated in evaluation Patient Amnestic to Procedure: Yes Nausea / Vomiting: adequately controlled Pain: adequately controlled Airway Patency, RR, SpO2: stable & adequate BP & HR: stable & adequate Hydration State: stable & adequate Anesthetic Complications: no major complications apparent and Pt Satisfied with anesthetic care
[2019-02-05] MEDS ORDERED: ACETAMINOPHEN 1,000 MG/100 ML VIAL IV STA (22:35)
[2019-02-05] MEDS ORDERED: ACETAMINOPHEN 1000 MG/100 ML IV IV ONE (22:36)
[2019-02-05] MEDS ORDERED: POLYETHYLENE (MIRALAX) 17 GM PACK PO PRN (23:26)
[2019-02-05] MEDS ORDERED: ACETAMINOPHEN 325 MG TAB PO PRN (23:26)
[2019-02-05] MEDS ORDERED: MoRPHine SULFATE 4 MG/ML 1 ML CARP\\VIAL IV PRN (23:26)
--- NOTE | 2019-02-05 23:42 | History and Physical Report ---
DATE OF ADMISSION: 02/05/2019 CHIEF COMPLAINT: Fever and abdominal pain. HISTORY OF PRESENT ILLNESS: This 78-year-old female with past medical history significant for hypertension, hyperlipidemia, history of multiple kidney stones, multiple lithotripsies and stent placements, history of diet-controlled diabetes, presents with ongoing fever since last 2 weeks and also abdominal pain and burning micturition, patient started on cipro week ago for a total of 10 days. Burning micturition improved, but the abdominal pain is getting worse, pain in both sides of abdomen radiating to groins. Denies any hematuria. She came to the ER and she was tachycardic and was having temperature spikes, and CAT scan showing obstructing left kidney stone. White count of 12,000. The patient was emergently taken to the OR and status post stent placement, in left ureter with lot of pus draining out. Currently, the patient is recovering in the PACU. She is alert and awake. She says she is feeling better. She still has spiking temperature, but her heart rate is fine and blood pressure is fine. Has some headache. No dizziness, no blurred vision, no sore throat. No dysphagia. Appetite is not good since last few days, but she swallows okay. Denies any chest pain. No shortness of breath. Also had some dry cough, had fever and chills at home on ad off for last 2 weeks. Abdominal pain is better now. She says she is somewhat constipated and uses stool softener, but her bowels are moving okay. No blood in the stools or black stools. No rash. Ambulates okay. She is currently living in senior housing. She lives alone, but daughter lives in the town. ALLERGIES: PENICILLINS. PAST MEDICAL HISTORY: As mentioned above. PAST SURGICAL HISTORY: Lithotripsy, cystoscopy, stent placement, breast biopsy. FAMILY HISTORY: Significant for, mother at age of 44 of leukemia. Father in 60s from alcoholism. One brother from questionable esophageal carcinoma and one brother has a history of heart disease as per records. SOCIAL HISTORY: Nonsmoker, no alcohol. Retired. REVIEW OF SYMPTOMS: As per HPI. Rest of review of systems negative. PHYSICAL EXAMINATION: GENERAL: The patient is of moderate build, not in acute distress. VITAL SIGNS: Temperature T-max 37, currently 38.5, pulse when she came in was 95, blood pressure 123/57, oxygen 96% on 2 liters. HEENT: No pallor, no icterus. Pupils equal, round, reactive to light. Extraocular muscles intact. NECK: No JVD, no neck masses, no carotid bruits, no lymphadenopathy. CARDIOVASCULAR: S1, S2 heard, regular rate and rhythm. No murmur, no gallop. RESPIRATORY SYSTEM: Normal AP diameter. No thyromegaly. No wheezing, no crackles. ABDOMEN: Soft, bowel sounds present. No CVA tenderness present. Mild abdominal discomfort. No guarding. No rigidity. No distention. CENTRAL NERVOUS SYSTEM: Nonfocal. EXTREMITIES: No edema, no erythema. LABORATORY DATA: WBC 12.3, hemoglobin 11.2, hematocrit 33.2, platelets 327. PT 10.5, INR 1, APTT 29.9. Sodium 137, potassium 3.8, chloride 105, bicarbonate 24, BUN 12, creatinine 1.14, serum glucose 121. Lactate 1.3, calcium 8.9, total bilirubin 0.5, AST 22, ALT 22, alkaline phosphatase 68. Procalcitonin 0.13. Urinalysis positive for leukocyte esterase and bacteria. Chest x-ray: Small parenchymal infiltrate, left base. CT of abdomen and pelvis, 1 cm obstructing calculus in the mid left ureter, progressive left hydroureteronephrosis compared to prior study, multiple bilateral nonobstructing renal calcifications, moderate left uroepithelial thickening suggestive of superimposed inflammatory process, chronic colonic diverticulosis. ASSESSMENT AND PLAN: This is an 78-year-old female presents with early sepsis from obstructing left ureteral stone. 1. Early sepsis with temperature spike, leukocytosis, tachycardia, urinary tract infection and 1-cm left mid ureter obstructing stone, status post cystoscopy and stent placement. As per urology, lot of pus came out. Received Rocephin in the ER. We will continue with Rocephin. Follow labs and cultures, IV fluids and close monitoring in the medical floor. The patient has history of multiple kidney stones and multiple cystoscopies and stent placement, follow up with urology. 2. Diet-controlled diabetes. Follow HbA1c .diabetic diet. 3. History of hypertension, On diltiazem and lisinopril with holding parameters. 4. Gastroesophageal reflux disease. Continue omeprazole. 5. Possible pneumonia on chest x-ray, has small parenchymal infiltrate left base. having dry cough. Patient continued on Rocephin. We will add doxycycline. 6. Deep venous thrombosis prophylaxis, sequential compression devices. DISPOSITION: Admit to medical floor. Expect discharge home and follow with family doctor. PT and OT prior to discharge. Social Service to help with discharge planning. ANKIT
[2019-02-06] MEDS: SODIUM CHLORIDE 0.9% 1000ML 1,000 ML IV SCH ×3 (00:03→16:45)
[2019-02-06] MEDS: DOXYCYCLINE HYCLATE 100 MG CAP PO SCH ×3 (01:08→20:42)
[2019-02-06 06:19] LABS: Basophils # (auto) 0.02 K/uL (0-0.2); Basophils % (auto) 0.2 %; Eosinophils # (auto) 0.04 K/uL (0-0.5); Eosinophils % (auto) 0.4 %; Hematocrit (blood only) 28.7 % (37-47); Hemoglobin 9.6 g/dL (12.0-16.0); Immature Granulocytes # (auto) 0.03 K/uL (0.00-0.02); Immature Granulocytes % (auto) 0.3 %; Lymphocytes # (auto) 1.71 K/uL (1.2-3.4); Lymphocytes % (auto) 17.3 %; Mean Corpuscular Hemoglobin 29.6 pg (25-34); Mean Corpuscular Hgb Conc 33.4 g/dL (32-36); Mean Corpuscular Volume 88.6 fL (80-100); Monocytes # (auto) 1.13 K/uL (0.11-0.59); Monocytes % (auto) 11.4 %; Neutrophils # (auto) 6.97 K/uL (1.4-6.5); Neutrophils % (auto) 70.4 %; Platelet Count 285 K/uL (130-400); RDW Coefficient of Variation 14.2 % (11.5-14.5); RDW Standard Deviation 46.1 fL (36.4-46.3); Red Blood Count 3.24 M/uL (4.2-5.4)
[2019-02-06 07:01] LABS: BUN Creatinine Ratio 9.7 (10-20); Creatinine Clr Calc Pharmacy 45.7 ml/min; Est GFR (African American) 63.9; Est GFR (Non-African American) 55.2; Magnesium 2.1 mg/dl (1.8-2.4); Potassium 3.9 mmol/L (3.5-5.1)
[2019-02-06 07:53] LABS: Estimated Average Glucose 128 mg/dl; Hemoglobin A1C 6.1 % (4.5-5.6)
--- NOTE | 2019-02-06 08:19 | Anesthesiology Progress Note ---
Date of Service February 06, 2019 Anesthesia Post Procedure Vital Signs Vital Signs: Temp Pulse Pulse Pulse Pulse Resp BP 02/06/19 07:45 36.8 C 78 16 02/06/19 02:40 36.9 C 76 16 02/06/19 01:15 36.9 C 77 16 02/06/19 00:20 37.3 C 80 18 02/05/19 23:45 37.6 C H 82 18 02/05/19 23:23 37.7 C H 87 16 02/05/19 22:57 38.0 C H 89 15 02/05/19 22:45 37.5 C 94 H 15 02/05/19 22:33 38.5 C H 02/05/19 22:20 95 H 15 02/05/19 22:10 95 H 18 02/05/19 22:00 94 H 18 02/05/19 21:50 93 H 21 02/05/19 21:41 37.0 C 92 H 15 02/05/19 20:30 94 H 30 H 139/67 02/05/19 20:00 96 H 23 147/63 H 02/05/19 19:32 93 H 19 02/05/19 19:30 93 H 22 157/64 H 02/05/19 19:29 93 H 22 149/66 H 02/05/19 19:20 96 H 20 02/05/19 19:00 93 H 18 02/05/19 18:30 95 H 24 02/05/19 18:21 91 H 22 02/05/19 18:16 02/05/19 17:19 37.9 C H 92 H 20 169/71 H BP Pulse Ox 02/06/19 07:45 122/65 96 02/06/19 02:40 105/55 L 93 02/06/19 01:15 107/55 L 92 02/06/19 00:20 92/47 L 91 02/05/19 23:45 110/56 L 92 02/05/19 23:23 112/53 L 97 02/05/19 22:57 128/53 L 96 02/05/19 22:45 126/57 L 99 02/05/19 22:33 02/05/19 22:20 123/57 L 96 02/05/19 22:10 129/45 L 96 02/05/19 22:00 132/53 L 95 02/05/19 21:50 122/52 L 98 02/05/19 21:41 109/51 L 100 02/05/19 20:30 93 02/05/19 20:00 95 02/05/19 19:32 02/05/19 19:30 02/05/19 19:29 02/05/19 19:20 157/64 H 97 02/05/19 19:00 02/05/19 18:30 02/05/19 18:21 02/05/19 18:16 95 02/05/19 17:19 95 Pain Intensity Abdomen: Pain Intensity: 6 Notes Mental Status: alert / awake / arousable and participated in evaluation Patient Amnestic to Procedure: Yes Nausea / Vomiting: adequately controlled Pain: adequately controlled Airway Patency, RR, SpO2: stable & adequate BP & HR: stable & adequate Hydration State: stable & adequate Anesthetic Complications: no major complications apparent and Pt Satisfied with anesthetic care
--- NOTE | 2019-02-06 08:45 | Urology Progress Note ---
Date of Service February 06, 2019 Assessment & Plan (1) Urinary tract obstruction by kidney stone: 78yo F s/p emergent left ureteral stent placement in context of febrile illness in setting of obs 1cm left distal ureteral stone. Doing well this AM. UC&S pending - prelim positive for gram neg bacilli. Pt will require 14 days of abx based upon sensitivities for treatment of suspected pyelonephritis prior to definitive stone treatment. Will arrange for KUB to assess stone visibility in the AM. We will continue to monitor peripherally while inpatient, will arrange for close outpatient followup. Subjective 78yo F POD #1 s/p emergent left ureteral stent placement for 1cm mid left ureteral stone with moderate hydro, presented with shaking chills and fever. She was diagnosed with UTI earlier this week, began on Ciprofloxacin per PCP. Tmax 38.5 C last night, WBC 12.3. She is tolerating the stent well, sitting up in chair. Denies major flank or suprapubic discomfort. Denies dysuria or hematuria. Voiding spontaneously, feels she is emptying her bladder well. Review of Systems Review of Systems: All systems reviewed & are unremarkable except as noted in HPI & below Physical Exam Constitutional: no acute distress and not ill appearing Eyes: no nystagmus ENMT: Ears: no hearing impairment Neck: trachea midline Respiratory: no respiratory distress and no cough Cardiovascular: Vessels: no JVD Chest (Breasts): Chest: normal inspection of chest Gastrointestinal (Abdomen): Inspection/Auscultation: abdomen not distended and no abdominal edema Percussion/Palpation: abdomen soft; abdomen nontender Musculoskeletal: Head/Neck/Chest: normocephalic and head atraumatic Skin: no rashes, warm and dry Neurologic: awake; not confused and not obtunded Psychiatric: Orientation: alert and oriented x 3 Eye Contact: good eye contact Affect: no depressed affect Lymphatic: no lymphadenopathy and no lymphedema Results & Data Vital Signs (Past 12 Hours) Vital Signs Temp Pulse Pulse Resp BP Pulse Ox 02/06/19 07:45 36.8 C 78 16 122/65 96 02/06/19 02:40 36.9 C 76 16 105/55 L 93 02/06/19 01:15 36.9 C 77 16 107/55 L 92 02/06/19 00:20 37.3 C 80 18 92/47 L 91 02/05/19 23:45 37.6 C H 82 18 110/56 L 92 02/05/19 23:23 37.7 C H 87 16 112/53 L 97 02/05/19 22:57 38.0 C H 89 15 128/53 L 96 02/05/19 22:45 37.5 C 94 H 15 126/57 L 99 02/05/19 22:33 38.5 C H 02/05/19 22:20 95 H 15 123/57 L 96 02/05/19 22:10 95 H 18 129/45 L 96 02/05/19 22:00 94 H 18 132/53 L 95 02/05/19 21:50 93 H 21 122/52 L 98 02/05/19 21:41 37.0 C 92 H 15 109/51 L 100
[2019-02-06] MEDS: CYANOCOBALAMIN 500 MCG TABLET (VITAMIN B-12) PO SCH (09:03)
[2019-02-06] MEDS: CHOLECALCIFEROL 1,000 UNITS TAB PO SCH (09:03)
[2019-02-06] MEDS: LISINOPRIL 10 MG TAB PO SCH (09:04)
[2019-02-06] MEDS: dilTIAZem HCL 240 MG CAPCR PO SCH (09:05)
[2019-02-06] MEDS: MULTIVITAMIN TAB PO SCH (09:05)
--- NOTE | 2019-02-06 11:33 | Hospitalist Progress Note ---
Date of Service February 06, 2019 Assessment & Plan (1) Urinary tract obstruction by kidney stone: She was admitted with abdominal pain and fever Noted to have obstructive uropathy Started on intravenous ceftriaxone Appreciate urology input and recommendation Status post left ureteral stent placement Has been doing fine following the procedure Present on Admission?: Yes (2) Sepsis: Possible early sepsis at presentation Sepsis has been ruled out (3) UTI (urinary tract infection): Increased white count with anemia suggestive of UTI Urine culture is growing gram-negative bacilli-sensitivities pending Continue ceftriaxone for now (4) Ureterolithiasis: Has kidney stones with stone in the left ureter Status post placement of left pediatric stent We will follow-up appointment with urologist on an outpatient DVT prophylaxis SCDs Status Full Subjective 02/06 The patient was seen and examined in the medical floor She is status post placement of left ureteral stent Denies any significant pain, nausea and vomiting No fever, chills or rigors Review of Systems Review of Systems: All systems reviewed and are unremarkable except as noted below Gastrointestinal: + abdominal pain (Minimal pain at the left renal angle) Physical Exam Physical Exam: Sitting on a chair without any significant symptoms Constitutional: well developed and well nourished; no acute distress and not ill appearing Eyes: PERRL, conjunctivae normal, anicteric sclerae ENMT: external ear and nose normal, oropharynx normal Neck: trachea midline, no thyromegaly Respiratory: normal respiratory effort Auscultation: lungs clear to auscultation bilaterally Cardiovascular: Rate/Rhythm: regular rate and regular rhythm Gastrointestinal (Abdomen): Inspection/Auscultation: normal bowel sounds Percussion/Palpation: abdomen soft Lymphatic: no cervical or axillary lymphadenopathy Results & Data Vital Signs (Past 12 Hours) Vital Signs Temp Pulse Resp BP Pulse Ox 02/06/19 07:45 36.8 C 78 16 122/65 96 02/06/19 02:40 36.9 C 76 16 105/55 L 93 02/06/19 01:15 36.9 C 77 16 107/55 L 92 02/06/19 00:20 37.3 C 80 18 92/47 L 91 02/05/19 23:45 37.6 C H 82 18 110/56 L 92 Laboratory Results Short CBC 02/05/19 02/06/19 Range/Units 18:13 06:04 WBC 12.32 H 9.90 (4.8-10.8) K/uL Hgb 11.2 L 9.6 L (12.0-16.0) g/dL Hct 33.2 L 28.7 L (37-47) % Plt Count 327 285 (130-400) K/uL BMP 02/05/19 02/06/19 18:13 06:04 Sodium 137 142 Potassium 3.8 3.9 Chloride 105 112 H Carbon Dioxide 24 24 BUN 12 9 Creatinine 1.14 0.97 Glucose 121 H 103 H Calcium 8.9 8.0 L Liver Function 02/05/19 Range/Units 18:13 Total Bilirubin 0.5 (0.2-1) mg/dl AST 22 (15-37) U/L ALT 22 (12-78) U/L Alkaline Phosphatase 68 (45-117) U/L Albumin 2.9 L (3.4-5.0) gm/dl Urine 02/05/19 Range/Units 18:13 Urine Color Yellow Urine Appearance Clear (Clear) Urine pH 6.5 (4.5-7.5) Ur Specific [place] 1.010 (1.000-1.030) Urine Protein Negative (Negative) Urine Glucose (UA) Negative (Negative) Medications Administered Current Inpatient Medications Acetaminophen (Tylenol) 650 mg PO Q4H PRN PRN Reason: pain/fever Stop: 03/07/19 23:25 Aspirin (Ecotrin Ectab) 81 mg PO HS [facility] Stop: 03/08/19 20:59 Cyanocobalamin (Vitamin B-12) 1,000 mcg PO QAM [facility] Stop: 03/08/19 08:59 Last Admin: 02/06/19 09:03 Dose: 1,000 mcg Documented by: Diltiazem HCl (Cardizem Cd) 240 mg PO DAILY [facility] Stop: 03/08/19 08:59 Last Admin: 02/06/19 09:05 Dose: 240 mg Documented by: Diphenhydramine HCl (Benadryl Capsule) 25 mg PO QAM REJI Stop: 03/08/19 08:59 Last Admin: 02/06/19 09:05 Dose: 25 mg Documented by: Doxycycline Hyclate (Vibramycin) 100 mg PO BID [facility]JI Stop: 02/12/19 23:25 Last Admin: 02/06/19 09:04 Dose: 100 mg Documented by: Ceftriaxone Sodium 1,000 mg/ (Dextrose) 50 mls @ 100 mls/hr IV Q24H [facility]; Protocol Stop: 02/16/19 17:59 Sodium Chloride (Nss 1000ml) 1,000 mls @ 125 mls/hr IV .Q8H [facility] Stop: 03/07/19 23:25 Last Admin: 02/06/19 07:59 Dose: 125 mls/hr Documented by: [facility]inop[facility]est[facility]) [facility] [place]: 03/08/19 08:59 Last Admin: 02/06/19 09:04 Dose: 10 mg Documented by: Morphine Sulfate (Morphine Sulfate) 3 mg IV Q3H PRN PRN Reason: Pain Stop: 02/19/19 23:25 Multivitamins (Multivitamin Tab) 1 tab PO [facility] Stop: 03/08/19 08:59 Last Admin: 02/06/19 09:05 Dose: 1 tab Documented by: Ondansetron HCl (Zofran) 4 mg IV Q6H PRN PRN Reason: Nausea Stop: 03/07/19 23:25 Pantoprazole Sodium (Protonix) 40 mg PO HS [facility] Stop: 03/08/19 20:59 Polyethylene Glycol (Miralax Powder Packet) 17 gm PO DAILY PRN PRN Reason: Constipation Stop: 03/07/19 23:25 Raloxifene HCl (Evista) 60 mg PO QPM [facility] Stop: 03/08/19 20:59 Simvastatin (Zocor) 20 mg PO HS [facility] Stop: 03/08/19 20:59 Vitamin D (Vitamin D3) 1,000 units PO [facility] Stop: 03/08/19 08:59 Last Admin: 02/06/19 09:03 Dose: 1,000 units Documented by: (1) Sepsis Sepsis acute organ dysfunction status: unspecified Sepsis type: sepsis due to unspecified organism Qualified Code(s): A41.9 - Sepsis, unspecified organism
[2019-02-06] MEDS ORDERED: cefTRIAXone SODIUM 1,000 MG in DEXTROSE 5% 50 ML IV SCH (18:00)
[2019-02-06] MEDS ORDERED: ASPIRIN 81 MG ECTAB PO SCH (21:00)
[2019-02-06] MEDS ORDERED: SIMVASTATIN 20 MG TAB PO SCH (21:00)
[2019-02-06] MEDS ORDERED: PANTOprazole 40 MG TAB PO SCH (21:00)
[2019-02-06] MEDS ORDERED: RALOXIFENE HCL 60 MG TAB PO SCH (21:00)
[2019-02-07] MEDS: SODIUM CHLORIDE 0.9% 1000ML 1,000 ML IV SCH ×2 (00:35→08:21)
--- NOTE | 2019-02-07 08:20 | XRay Report ---
XR KUB/Abdomen 1 view CLINICAL HISTORY: 78 years-old Female presenting with stone visibility. TECHNIQUE: Single supine view of the abdomen was obtained. COMPARISON: 11/13/[address] from 02/05/2019. FINDINGS: Cholecystectomy clips noted. Nonobstructive bowel gas pattern. No gross pneumoperitoneum. Left ureteral stent in place. The recently noted obstructing calculus in the mid left ureter is not a pparent. Multiple calculi project over the left renal shadow consistent with known nephrolithiasis. S table distribution of pelvic phleboliths. Degenerative changes of the spine. IMPRESSION: 1. Recently noted obstructing mid left ureteral calculus is not identified on the current exam. 2. Left ureteral stent now in place. 3. Left nephrolithiasis. Electronically signed by: Jason Milton M.D. 02/07/2019 8:19 AM
[2019-02-07] MEDS: MULTIVITAMIN TAB PO SCH (08:57)
[2019-02-07] MEDS: dilTIAZem HCL 240 MG CAPCR PO SCH (08:57)
[2019-02-07] MEDS: DOXYCYCLINE HYCLATE 100 MG CAP PO SCH (08:58)
[2019-02-07] MEDS: LISINOPRIL 10 MG TAB PO SCH (08:58)
[2019-02-07] MEDS: CYANOCOBALAMIN 500 MCG TABLET (VITAMIN B-12) PO SCH (08:58)
[2019-02-07] MEDS: CHOLECALCIFEROL 1,000 UNITS TAB PO SCH (08:58)
--- NOTE | 2019-02-07 11:24 | Urology Progress Note ---
Date of Service February 07, 2019 Assessment & Plan (1) Urinary tract obstruction by kidney stone: 78yo F s/p emergent left ureteral stent placement in context of febrile illness in setting of obs 1cm left distal ureteral stone. Doing well this AM. UC&S final quinolone resistant Ecoli Pt will require 14 days of abx based upon sensitivities for treatment of suspected pyelonephritis prior to definitive stone treatment. Poor stone visibility on KUB, will repeat as outpatient prior to followup to discuss definitive stone management after appropriate abx course complete. Okay to discharge home with tamsulosin, abx x14 days, and pain control from our perspective. Thank you for allowing us to participate in the acute care of Ms. Ricardo. Please reconsult with additional questions, concerns or changes in patient status. Subjective 78yo F POD #1 s/p emergent left ureteral stent placement for 1cm mid left ureteral stone with moderate hydro, presented with shaking chills and fever. Final UC&S growing quinolone resistant Ecoli She is tolerating the stent well, sitting up in chair. Denies major flank or suprapubic discomfort. Denies dysuria or hematuria. Voiding spontaneously, feels she is emptying her bladder well. Review of Systems Review of Systems: All systems reviewed & are unremarkable except as noted in HPI & below Physical Exam Constitutional: no acute distress and not ill appearing Eyes: no nystagmus ENMT: Ears: no hearing impairment Neck: trachea midline Respiratory: no respiratory distress and no cough Cardiovascular: Vessels: no JVD Chest (Breasts): Chest: normal inspection of chest Gastrointestinal (Abdomen): Inspection/Auscultation: abdomen not distended and no abdominal edema Percussion/Palpation: abdomen soft; abdomen nontender Musculoskeletal: Head/Neck/Chest: normocephalic and head atraumatic Skin: no rashes, warm and dry Neurologic: awake; not confused and not obtunded Psychiatric: Orientation: alert and oriented x 3 Eye Contact: good eye contact Affect: no depressed affect Lymphatic: no lymphadenopathy and no lymphedema Results & Data Vital Signs (Past 12 Hours) Vital Signs Temp Pulse Resp BP Pulse Ox 02/07/19 07:30 37.1 C 67 21 114/60 98
--- NOTE | 2019-02-07 11:36 | Hospitalist Progress Note ---
Date of Service February 07, 2019 Assessment & Plan (1) Urinary tract obstruction by kidney stone: She was admitted with abdominal pain and fever Noted to have obstructive uropathy Started on intravenous ceftriaxone Appreciate urology input and recommendation Status post left ureteral stent placement Has been doing fine following the procedure Urine culture grew E. coli and sensitive to many antibiotics except quinolones We will put her on oral Keflex for the next 12 days We will discharge home this afternoon Advised to drink more fluid (2) Sepsis: Possible early sepsis at presentation Sepsis has been ruled out (3) UTI (urinary tract infection): Increased white count with anemia suggestive of UTI Urine culture is growing gram-negative bacilli-sensitivities pending Continue ceftriaxone for now (4) Ureterolithiasis: Has kidney stones with stone in the left ureter Status post placement of left pediatric stent We will follow-up appointment with urologist on an outpatient DVT prophylaxis SCDs Status Full PCP appointment in 1 week Urology appointment as advised by the urologist Subjective 02/06 The patient was seen and examined in the medical floor She is status post placement of left ureteral stent Denies any significant pain, nausea and vomiting No fever, chills or rigors 02/07 Patient was seen and examined medical floor She denies any pain involving the left flank or in the hypogastrium Denies any urinary symptoms No fever and chills, cough and or phlegm, no shortness of breath Review of Systems Review of Systems: All systems reviewed and are unremarkable except as noted below Genitourinary: no dysuria, no urinary frequency and no flank pain Physical Exam Physical Exam: Lying in bed comfortably Constitutional: well developed and well nourished; no acute distress and not ill appearing Eyes: PERRL, conjunctivae normal, anicteric sclerae ENMT: external ear and nose normal, oropharynx normal Neck: trachea midline, no thyromegaly Respiratory: normal respiratory effort Auscultation: lungs clear to auscultation bilaterally and + diminished lung sounds Cardiovascular: Rate/Rhythm: regular rate and regular rhythm Gastrointestinal (Abdomen): Inspection/Auscultation: normal bowel sounds Percussion/Palpation: abdomen soft No tenderness in left renal angle Lymphatic: no cervical or axillary lymphadenopathy Results & Data Vital Signs (Past 12 Hours) Vital Signs Temp Pulse Resp BP Pulse Ox 02/07/19 07:30 37.1 C 67 21 114/60 98 Medications Administered Current Inpatient Medications Acetaminophen (Tylenol) 650 mg PO Q4H PRN PRN Reason: pain/fever Stop: 03/07/19 23:25 Aspirin (Ecotrin Ectab) 81 mg PO HS [facility] Stop: 03/08/19 20:59 Last Admin: 02/06/19 20:44 Dose: 81 mg Documented by: Cyanocobalamin (Vitamin B-12) 1,000 mcg PO QAM [facility] Stop: 03/08/19 08:59 Last Admin: 02/07/19 08:58 Dose: 1,000 mcg Documented by: Diltiazem HCl (Cardizem Cd) 240 mg PO DAILY [facility] Stop: 03/08/19 08:59 Last Admin: 02/07/19 08:57 Dose: 240 mg Documented by: Diphenhydramine HCl ([facility] Capsule) [facility] Stop: 03/08/19 08:59 Last Admin: 02/07/19 08:57 Dose: 25 mg Documented by: Doxycycline Hyclate (Vibramycin) 100 mg PO BID [facility] Stop: 02/12/19 23:25 Last Admin: 02/07/19 08:58 Dose: 100 mg Documented by: Ceftriaxone Sodium 1,000 mg/ (Dextrose) 50 mls @ 100 mls/hr IV Q24H [facility]; Protocol Stop: 02/16/19 17:59 Last Infusion: 02/06/19 19:08 Dose: Infused Documented by: Sodium Chloride (Nss 1000ml) 1,000 mls @ 125 mls/hr IV .Q8H [facility] Stop: 03/07/19 23:25 Last Admin: 02/07/19 08:21 Dose: 125 mls/hr Documented by: Lisinopril (Zestril) [facility] [place] Stop: 03/08/19 08:59 Last Admin: 02/07/19 08:58 Dose: 10 mg Documented by: Morphine Sulfate (Morphine Sulfate) 3 mg IV Q3H PRN PRN Reason: Pain Stop: 02/19/19 23:25 Multivitamins (Multivitamin Tab) 1 tab PO [facility] Stop: 03/08/19 08:59 Last Admin: 02/07/19 08:57 Dose: 1 tab Documented by: Ondansetron HCl (Zofran) 4 mg IV Q6H PRN PRN Reason: Nausea Stop: 03/07/19 23:25 Pantoprazole Sodium (Protonix) 40 mg PO HS [facility] Stop: 03/08/19 20:59 Last Admin: 02/06/19 20:44 Dose: 40 mg Documented by: Polyethylene Glycol (Miralax Powder Packet) 17 gm PO DAILY PRN PRN Reason: Constipation Stop: 03/07/19 23:25 Raloxifene HCl (Evista) 60 mg PO QPM [facility] Stop: 03/08/19 20:59 Last Admin: 02/06/19 20:43 Dose: 60 mg Documented by: Simvastatin (Zocor) 20 mg PO HS [facility] Stop: 03/08/19 20:59 Last Admin: 02/06/19 20:43 Dose: 20 mg Documented by: Vitamin D (Vitamin D3) 1,000 units PO QAM [facility] Stop: 03/08/19 08:59 Last Admin: 02/07/19 08:58 Dose: 1,000 units Documented by: (1) Sepsis Sepsis acute organ dysfunction status: unspecified Sepsis type: sepsis due to unspecified organism Qualified Code(s): A41.9 - Sepsis, unspecified organism
[2019-02-07] MEDS ORDERED: LACTOBACILLUS ACIDOPHILUS (FLORANEX) TAB PO SCH (17:00)
[2019-02-07] MEDS ORDERED: cephALEXin 500 MG CAP PO SCH (21:00)
--- NOTE | 2019-02-08 07:32 | Discharge Summary ---
Date of Service February 08, 2019 Admission HPI Per Admitting Provider DICTATED BY: Mark Otero MD DATE OF ADMISSION: 02/05/2019 CHIEF COMPLAINT: Fever and abdominal pain. HISTORY OF PRESENT ILLNESS: This 78-year-old female with past medical history significant for hypertension, hyperlipidemia, history of multiple kidney stones, multiple lithotripsies and stent placements, history of diet-controlled diabetes, presents with ongoing fever since last 2 weeks and also abdominal pain and burning micturition, patient started on cipro week ago for a total of 10 days. Burning micturition improved, but the abdominal pain is getting worse, pain in both sides of abdomen radiating to groins. Denies any hematuria. She came to the ER and she was tachycardic and was having temperature spikes, and CAT scan showing obstructing left kidney stone. White count of 12,000. The patient was emergently taken to the OR and status post stent placement, in left ureter with lot of pus draining out. Currently, the patient is recovering in the PACU. She is alert and awake. She says she is feeling better. She still has spiking temperature, but her heart rate is fine and blood pressure is fine. Has some headache. No dizziness, no blurred vision, no sore throat. No dysphagia. Appetite is not good since last few days, but she swallows okay. Denies any chest pain. No shortness of breath. Also had some dry cough, had fever and chills at home on ad off for last 2 weeks. Abdominal pain is better now. She says she is somewhat constipated and uses stool softener, but her bowels are moving okay. No blood in the stools or black stools. No rash. Ambulates okay. She is currently living in senior housing. She lives alone, but daughter lives in the town. Admission Exam Per Admitting Provider GENERAL: The patient is of moderate build, not in acute distress. VITAL SIGNS: Temperature T-max 37, currently 38.5, pulse when she came in was 95, blood pressure 123/57, oxygen 96% on 2 liters. HEENT: No pallor, no icterus. Pupils equal, round, reactive to light. Extraocular muscles intact. NECK: No JVD, no neck masses, no carotid bruits, no lymphadenopathy. CARDIOVASCULAR: S1, S2 heard, regular rate and rhythm. No murmur, no gallop. RESPIRATORY SYSTEM: Normal AP diameter. No thyromegaly. No wheezing, no crackles. ABDOMEN: Soft, bowel sounds present. No CVA tenderness present. Mild abdominal discomfort. No guarding. No rigidity. No distention. CENTRAL NERVOUS SYSTEM: Nonfocal. EXTREMITIES: No edema, no erythema. Principal Diagnosis Complicated UTI, ureterolithiasis status post placement of left Ureteric stent Discharge Exam Constitutional well developed and well nourished; no acute distress and not ill appearing Eyes PERRL, conjunctivae normal, anicteric sclerae ENMT external ear and nose normal, oropharynx normal Neck trachea midline, no thyromegaly Respiratory normal respiratory effort Auscultation: lungs clear to auscultation bilaterally and + diminished lung sounds Cardiovascular Rate/Rhythm: regular rate and regular rhythm Gastrointestinal (Abdomen) Inspection/Auscultation: normal bowel sounds Percussion/Palpation: abdomen soft Lymphatic no cervical or axillary lymphadenopathy Discharge Data Allergies Allergy/AdvReac Type Severity Reaction Status Date / Time Penicillins Allergy Intermediate RASH ALL Verified 02/05/19 18:21 OVER BODY amoxicillin Allergy Unknown HIVES Unverified 02/05/19 18:21 Consultations 02/05/19 19:58 ED Decision to Admit Stat 02/05/19 23:26 Consult Case Management - Discharge Planning Routine Consult Urology Routine Procedures Performed Operation Date: 02/05/19 20:30 Actual Procedures p Cystoscopy; - Yaw Lucero MD s Left Ureteral Stent Placement(Left) - Yaw Lucero MD Ordered Studies 02/05/19 17:42 CT abd pelvis IV con only Stat 02/05/19 20:54 [place] cystogram Routine Hospital Course (1) Urinary tract obstruction by kidney stone: She was admitted with abdominal pain and fever Noted to have obstructive uropathy Started on intravenous ceftriaxone Appreciate urology input and recommendation Status post left ureteral stent placement Has been doing fine following the procedure Urine culture grew E. coli and sensitive to many antibiotics except quinolones We will put her on oral Keflex for the next 12 days We will discharge home this afternoon Advised to drink more fluid (2) Sepsis: Possible early sepsis at presentation Sepsis has been ruled out (3) UTI (urinary tract infection): Increased white count with anemia suggestive of UTI Urine culture is growing gram-negative bacilli-sensitivities pending Continue ceftriaxone for now (4) Ureterolithiasis: Has kidney stones with stone in the left ureter Status post placement of left pediatric stent We will follow-up appointment with urologist on an outpatient DVT prophylaxis SCDs Status Full PCP appointment in 1 week Urology appointment as advised by the urologist Total Time Total Time Spent Total Time Spent (In Minutes): 35 minutes Total Time Includes: Examination of the Patient, Discharge Planning, Medication Reconciliation and Communication With Other Providers Discharge Plan Discharge Items Patient Disposition: Home - Self-Care Reason For Visit: ABDOMINAL PAIN,FEVER Discharge Diagnosis: Complicated UTI, ureterolithiasis status post placement of left Ureteric stent Condition: Good Discharge Goals: Decrease discomfort, Improve function and Increase independence Activity: Resume your previous activity Non-emergency contact: Primary Care Provider Call non-emergency contact if: you have any medication questions and your symptoms worsen Follow-up/Referrals: Lamont Mckeon [Primary Care Provider] - (Your doctor's office will call with an appointment within 7 days. Please keep appointment with the urologist as advised) Diet: Carb Consistent or DM2 and Heart Healthy Addtl Provider Instructions: Please drink plenty of fluid Take precautions to avoid falls Prescriptions: New cephalexin 500 mg Capsule 500 mg PO BID 12 Days Qty: 24 RF: 0 Lactobacillus acidoph-L.bulgar [Floranex] 1 million cell Tablet 4 tab PO BID 15 Days Qty: 120 RF: 0 Continued simvastatin 20 mg Tablet 20 mg PO HS Qty: 0 RF: 0 multivitamin Tablet 1 tab PO QAM Qty: 0 RF: 0 aspirin 81 mg Tablet,Delayed Release (Dr/Ec) 81 mg PO HS Qty: 0 RF: 0 cyanocobalamin (vitamin B-12) 1,000 mcg Tablet 1,000 mcg PO QAM Qty: 0 RF: 0 acetaminophen [Tylenol Extra Strength] 500 mg Tablet 1,000 mg PO Q4H PRN (Reason: Pain) Qty: 0 RF: 0 cholecalciferol (vitamin D3) 1,000 unit (25 mcg) Tablet 1,000 unit PO QAM Qty: 0 RF: 0 [facility] 1 tab PO QAM Qty: 0 RF: 0 diphenhydramine HCl [Benadryl] 25 mg Capsule 25 mg PO QAM Qty: 0 RF: 0 lisinopril 10 mg Tablet 10 mg PO QAM Qty: 0 RF: 0 omeprazole 20 mg Tablet,Delayed Release (Dr/Ec) 20 mg PO HS Qty: 0 RF: 0 diltiazem HCl [DILT-XR] 240 mg capsule,ext.rel 24h degradable 240 mg PO QPM RF: 0 raloxifene 60 mg tablet 60 mg PO QPM RF: 0 Discontinued ciprofloxacin HCl 500 mg tablet 500 mg PO UD RF: 0 Stand-Alone Forms: [facility]/Other Patient Handouts: Stents Ureteral, UTI, ED Bladder Infec Cystitis Female Ch Discharge Orders: Discharge Order (Routine); Ordered 02/07/19 Ordered By: Cedric Ansari Admission Data Admit Date/Time: 02/05/19 22:24 Attending Provider: Cedric Ansari Admit Provider: Mark Otero Primary Care Provider: Lamont Mckeon Other Providers: Mark Otero ; Yaw Lucero Service: Surgical Services Other Interventions: Discharge Summary Assessment (RN) Last Done: 02/07/19 13:54 DC Date/Time DO NOT enter until pt leaves facility: 02/07/19 15:20
== END 2019-02-07 15:20 | disposition home or self-care (01) | DRG 661 ==
LOC: ED 16:48 → OR 20:50 → 3N 20:50 → SUATTDRO 22:24

== ENCOUNTER 2019-07-03 11:09 | Inpatient (IN) ==
[2019-07-03 12:13] LABS: Basophils # (auto) 0.02 K/uL (0-0.2); Basophils % (auto) 0.2 %; Eosinophils # (auto) 0.02 K/uL (0-0.5); Eosinophils % (auto) 0.2 %; Hematocrit (blood only) 39.7 % (37-47); Immature Granulocytes # (auto) 0.03 K/uL (0.00-0.02); Immature Granulocytes % (auto) 0.3 %; Lymphocytes # (auto) 1.41 K/uL (1.2-3.4); Lymphocytes % (auto) 15.4 %; Mean Corpuscular Hgb Conc 32.7 g/dL (32-36); Mean Corpuscular Volume 91.5 fL (80-100); Mean Platelet Volume 10.3 fL (7.4-10.4); Monocytes # (auto) 0.66 K/uL (0.11-0.59); Monocytes % (auto) 7.2 %; Neutrophils # (auto) 7.01 K/uL (1.4-6.5); Neutrophils % (auto) 76.7 %; Platelet Count 185 K/uL (130-400); RDW Coefficient of Variation 13.5 % (11.5-14.5); RDW Standard Deviation 44.9 fL (36.4-46.3); Red Blood Count 4.34 M/uL (4.2-5.4); White Blood Count 9.15 K/uL (4.8-10.8)
--- NOTE | 2019-07-03 12:13 | XRay Report ---
XR chest 1V portable CLINICAL HISTORY: 78 years-old Female presenting with Dyspnea. TECHNIQUE: Portable upright AP view of the chest was obtained. COMPARISON: 02/05/2019. FINDINGS: Atherosclerosis of the aortic arch. Cardiac silhouette normal in size. Mild interstitial prominence. Mild added density at the lung bases. No focal opacity. No large effusion or pneumothorax. Degenerati ve changes of the thoracic spine. Osteopenia suspected. Upper abdomen normal. IMPRESSION: 1. Congestive changes at the lung bases versus bronchitis/reactive airways disease. No yasir pulmona ry edema or focal infiltrate to suggest pneumonia. ACT 112: Negative or not required by law. Electronically signed by: Jason Milton M.D. 07/03/2019 12:12 PM
[2019-07-03 12:16] LABS: HCO3 VBG 23 mmol/L; PCO2 VBG 40 mmHg (38-50); PO2 VBG 30 mmHg; pH VBG 7.38 (7.36-7.41)
[2019-07-03 12:17] LABS: Oxygen Saturation VBG < 60.0 %
[2019-07-03 12:28] LABS: Albumin Level 3.4 gm/dl (3.4-5.0); BUN Creatinine Ratio 17.5 (10-20); Creatinine Clr Calc Pharmacy 40.6 ml/min; Est GFR (African American) 57.4; Est GFR (Non-African American) 49.6; Magnesium 1.9 mg/dl (1.8-2.4)
[2019-07-03 12:31] LABS: Partial Thromboplastin Time 27.9 Seconds (21.0-31.0); Prothrombin Time 10.7 Seconds (9.0-12.0)
[2019-07-03 12:35] LABS: Albumin Globulin Ratio 0.9 (0.9-2); Bilirubin,Total 0.9 mg/dl (0.2-1); Globulin 3.9 gm/dl (2.5-4.0); Total Protein 7.3 gm/dl (6.4-8.2); Troponin I 0.052 ng/ml (0-0.045)
[2019-07-03] MEDS ORDERED: OPTIRAY 320 125ml IV PRN (12:49)
[2019-07-03 13:01] LABS: Appearance Urine Clear (Clear); Bilirubin Urine Negative (Negative); Blood Urine Negative (Negative); Color Urine Yellow; Glucose Urine UA Negative (Negative); Ketones Urine Negative (Negative); Leukocyte Esterase Urine 2+ (Negative); Nitrite Urine Negative (Negative); Protein Urine Negative (Negative); Specific Gravity Urine 1.005 (1.000-1.030); Urobilinogen Urine Negative (Negative); pH Urine 6.5 (4.5-7.5)
--- NOTE | 2019-07-03 13:05 | CT Scan Report ---
CT ANGIOGRAM OF THE CHEST CLINICAL HISTORY: Shortness of breath. Possible pulmonary embolism. COMPARISON STUDY: Chest x-ray dated 07/03/2019 TECHNIQUE: Following the IV administration of 118 mL of Optiray-320, CT angiogram of the thorax was p erformed from the thoracic inlet to the lung bases utilizing the pulmonary embolus protocol. Images a re reviewed in the axial, sagittal, and coronal planes. IV contrast was administered without complica tion. MIP imaging was performed. A dose lowering technique was utilized adhering to the principles o f ALARA. CT DOSE: 416.05 mGycm FINDINGS: There is a 2 cm right lobe thyroid nodule. Nonemergent thyroid ultrasonography could be obtained in f ollow-up as deemed clinically appropriate. Mediastinal lymph nodes are the upper limits of normal in size. There is no pathologic hilar or axill [place] lymphadenopathy. There was no evidence of thoracic aortic dilatation. There are moderately extensive bilateral pulmonary artery filling defects indicative of acute pulmona ry embolism. There is slight straightening of the interventricular septum suggesting mild right ventr icular strain. There are no pleural effusions. There are mild dependent atelectatic changes. IMPRESSION: 1. Moderately extensive acute bilateral embolism, with evidence of mild secondary right ventricular s train. ACT 112: Negative or not required by law. Electronically signed by: Ihsan Christianson M.D. 07/03/2019 1:04 PM
[2019-07-03 13:18] LABS: Bacteria Urine 2+ (Negative); RBC Urine 0-4 /hpf (0-4)
[2019-07-03] MEDS ORDERED: Heparin BOLUS **ED Use Only IV STA (13:42)
[2019-07-03] MEDS: HEPARIN SODIUM/DEXTROSE 25,000 UNITS/500 ML BAG IV SCH (13:51)
--- NOTE | 2019-07-03 13:52 | History & Physical Report ---
Date of Service July 03, 2019 Assessment & Plan (1) Pulmonary emboli: (2) SOB (shortness of breath): Pt is 78 y/o F with PMH HTN, HLD, diet controlled DM II, GERD, H/O kidney stones presented to ER with C/O SOB with exertion x 3 days. Denies CP, fever/chills, cough, recent immobilization, travel or surgery. Denies h/o DVT/PE or FH clotting disorder. In ER afebrile, P: 91, R: 26, BP: 132/74, 96% on RA. No leukocytosis, H/H: 13/39, Troponin: 0.05, BNP: 2094, EKG without acute changes CTA CHEST: Moderately extensive acute bilateral embolism, with evidence of mild secondary right ventricular strain. Bilateral PE with Right Heart Strain -Heparin bolus and drip started in ER -Continue Heparin IV -Supplemental oxygen as needed -Echo to further assess right heart strain -Limited hypercoagulable labs obtained as pt received heparin -Pulmonology consult (3) Elevated troponin: Troponin: 0.05. No acute ST changes No CP Probable secondary to PE -Trend troponin -Repeat EKG in AM -Currently on IV Heparin for PE as above (4) Asymptomatic bacteriuria: UA: 2+leuk esterase, 10-30 WBC, 2+bacteria Denies hematuria, dysuria, urinary frequency, urgency, back pain, flank pain (5) Hypertension: Stable -Continue Diltiazem, lisinopril (6) Prediabetes: A1c: 6.1 on 07/02/2019. Diet controlled Random glucose in ER was 110 -Diabetic diet -Novolog sliding scale per protocol if needed (7) GERD (gastroesophageal reflux disease): -Continue PPI DVT Prophylaxis -Currently on IV Heparin Full Code as per discussion with pt Follows with Dr Mckeon for routine care Pt was seen and care coordinated with Dr Montiel. See addendum History of Present Illness Chief Complaint: SOB Primary Care Provider: Lamont Mckeon Pt is 78 y/o F with PMH HTN, HLD, diet controlled DM II, GERD, H/O kidney stones presented to ER with complaint of shortness of breath x 3 days. Reports shortness of breath with exertion. Denies chest pain, dizziness, syncope. Saw PCP yesterday and had labs and chest x-ray, unsure of results. Reports he was given guaifenesin with codeine and took 1 dose without relief. Denies recent injury/trauma, travel, recent surgery or immobilization. Denies history DVT/PE in the past and denies family history of clotting disorder. Denies fever/chills, diaphoresis, N/V/D/C, CHACKO, vision changes, neck pain, orthopnea, palpitations, cough, hemoptysis, sore throat, choking, otalgia, rhinorrhea, abdominal pain, paresthesias, weakness, extremity weakness, extremity pain, extremity edema, rashes, urinary symptoms. Allergies Allergy/AdvReac Type Severity Reaction Status Date / Time Penicillins Allergy Intermediate RASH ALL Verified 07/03/19 12:36 OVER BODY amoxicillin Allergy Unknown HIVES Verified 07/03/19 12:36 Home Medications Home Medications Medication Instructions Recorded Confirmed Type multivitamin 1 tab PO QAM #0 09/25/11 07/03/19 History acetaminophen [Tylenol Extra 1,000 mg PO Q4H PRN #0 tab 03/05/14 07/03/19 History Strength] cholecalciferol (vitamin D3) 1,000 unit PO QAM #0 03/05/14 07/03/19 History cyanocobalamin (vitamin B-12) 1,000 mcg PO QAM #0 tab 03/05/14 07/03/19 History diphenhydramine HCl [Benadryl] 25 mg PO QAM #0 cap 01/25/16 07/03/19 History lisinopril 10 mg PO QAM #0 tab 01/25/16 07/03/19 History omeprazole 20 mg PO HS #0 cap 01/25/16 07/03/19 History diltiazem HCl [DILT-XR] 240 mg PO QPM 02/05/19 07/03/19 History raloxifene 60 mg PO QPM 02/05/19 07/03/19 History aspirin 81 mg PO HS #0 tab 03/02/19 07/03/19 Rx codeine-guaifenesin 5 ml PO UD PRN 07/03/19 07/03/19 History Past Med/Surg History Medical History (Updated 07/03/19 @ 14:38 by Nia Farrell PA-C) Barretts esophagus Chronic lower back pain Diverticular disease GERD (gastroesophageal reflux disease) Hyperlipidemia Hypertension Kidney stone (Acute) Lumbar spinal stenosis (Acute 03/28/14) Osteoarthritis Osteoporosis Prediabetes Surgical History H/O cystoscopy cysto with stent placement 02/05/19 under [facility] H/O: section (Resolved) H/O: hysterectomy History of colonoscopy w/ polypectomy History of esophagogastroduodenoscopy (EGD) History of lumbar fusion lumbar History of nephrolithotomy with removal of calculi Hx of cholecystectomy Family History Brother Esophageal cancer Mother Leukemia Social History Preferred Language: Croatian Communication Ability: Effective 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 Beliefs That Will Affect Care: None marital status: Current Living Situation: Alone current occupational status: retired Other Information That Helps Us Care for You: No Feels Safe at Home: Yes Safety Concerns: Feels Safe At This Time Smoking Status: Never smoker Do You Dip or Chew Tobacco: No ; Second Hand Exposure: No ; Tobacco Cessation Education Requested by Patient: No Hx Alcohol Use: No Hx Substance Use: No Review of Systems Review of Systems: All systems reviewed & are unremarkable except as noted in HPI & below Physical Exam Physical Exam: General: no acute distress, WDWN Head: normocephalic, atraumatic Eyes: PERRL, EOM's intact, conjunctiva non-injected, anicteric ENT: normal inspection external ears, nose, mucous membranes moist Neck: supple, trachea midline, non-tender Lungs: clear, +SOB with speaking several sentences, no wheezing/rhonchi/rales CV: RRR, no murmur, no JVD, no pretibial edema Abd: normal BS, soft, non-tender Ext: no cyanosis, no erythema, no calf tenderness Neuro: A&O x 3, no focal deficits noted, normal affect Skin: warm, dry Results & Data Vital Signs (Past 12 Hours) Vital Signs Temp Pulse Pulse Resp BP BP Pulse Ox 07/03/19 13:37 96 07/03/19 13:36 95 07/03/19 12:45 87 21 147/80 H 95 07/03/19 11:46 86 20 128/81 96 07/03/19 11:44 91 H 20 96 07/03/19 11:23 36.3 C L 91 H 26 H 132/74 96 Laboratory Results Short CBC 07/03/19 07/03/19 Range/Units 12:01 12:01 WBC 9.15 (4.8-10.8) K/uL Hgb 13.0 (12.0-16.0) g/dL Hct 39.7 (37-47) % Plt Count 185 (130-400) K/uL Troponin I 0.052 H* (0-0.045) ng/ml BMP 07/03/19 12:01 Sodium 139 Potassium 4.0 Chloride 109 H Carbon Dioxide 23 BUN 19 H Creatinine 1.06 Glucose 110 H Calcium 9.0 Cardiac Enzymes 07/03/19 Range/Units 12:01 Troponin I 0.052 H* (0-0.045) ng/ml Liver Function 07/03/19 Range/Units 12:01 Total Bilirubin 0.9 (0.2-1) mg/dl AST 52 H (15-37) U/L ALT 43 (12-78) U/L Alkaline Phosphatase 59 (45-117) U/L Albumin 3.4 (3.4-5.0) gm/dl Urine 07/03/19 Range/Units 12:41 Urine Color Yellow Urine Appearance Clear (Clear) Urine pH 6.5 (4.5-7.5) Ur Specific [place] 1.005 (1.000-1.030) Urine Protein Negative (Negative) Urine Glucose (UA) Negative (Negative) Diagnostic Findings CXR: IMPRESSION: 1. Congestive changes at the lung bases versus bronchitis/reactive airways disease. No yasir pulmonary edema or focal infiltrate to suggest pneumonia. CTA CHEST: IMPRESSION: 1. Moderately extensive acute bilateral embolism, with evidence of mild secondary right ventricular strain. ECG Rate (beats per minute): 86 Rhythm: sinus rhythm Findings: + nonspecific-ST abn (nonspecific t wave abnormality) and + PVC Supervising Physician Co-Signing Physician Notes Attending Addendum: care coordinated with XENIA Kilpatrick please refer to her notes for full details, I agree with her notes patient seen and examined, records reviewed by myself as well on exam, patient seen resting in bed, comfortable but has mild dyspnea when speaking sentences Reports discharge with minimal exertion but denies active chest pain, dizziness, nausea vomiting, leg pain no other symptoms VS noted and reviewed oriented x 3 , not in distress, speaks in sentences with no effort nor accessory muscle use normal rate, regular rhythm, no murmurs clear breath sounds bilaterally non distended, soft, nontender no bipedal edema, erythema, warmth no neuro deficits WBC 9.15 Hg 13.0 Crea 1.06 Troponin times one 0.[address] chest: Moderately extensive acute bilateral embolism, with evidence of mild secondary right ventricular strain. ASSESSMENT AND PLAN ACUTE PULMONARY EMBOLISM, MODERATELY EXTENSIVE, BILATERAL, UNPROVOKED Hemodynamically stable at this time CT chest does reveal right ventricular strain, as mild troponin elevation, BNP elevation No history of cancer, reports mammogram and colonoscopy are up-to-date --Check hypercoagulable panel Echocardiogram --Start heparin drip with bolus --Will consult pulmonology service --Will need outpatient hematology referral HYPERTENSION --Continue diltiazem, lisinopril other diagnoses and plan of care as per XENIA Kilpatrick notes Louie Montiel MD (1) Pulmonary emboli Acute cor pulmonale presence: unspecified Chronicity: unspecified Pulmonary embolism type: unspecified Qualified Code(s): I26.99 - Other pulmonary embolism without acute cor pulmonale
[2019-07-03] MEDS ORDERED: GLUCOSE 10 TABS/TUBE PO PRN (14:52)
[2019-07-03] MEDS ORDERED: GLUCAGON FOR INJ 1 MG VIAL SQ PRN (14:52)
[2019-07-03] MEDS ORDERED: DEXTROSE 50% 50 ML SYRINGE IV PRN (14:52)
[2019-07-03] MEDS ORDERED: CARBOHYDRATES FOR HYPOGLYCEMIA PO PRN (14:52)
[2019-07-03] MEDS ORDERED: GLUCOSE 40% GEL 15 GM TUBE PO PRN (14:52)
--- NOTE | 2019-07-03 15:31 | Pulmonary Consultation ---
Date of Consultation July 03, 2019 Assessment & Plan (1) Pulmonary emboli: Patient presents with acute bilateral pulmonary emboli extending from the pulmonary artery down to the subsegmental sections of each lung. Patient is oxygenating well on room air no evidence of hypoxia There is some evidence on imaging of some right ventricular strain. * Echocardiogram is ordered and pending Lower extremities are nonedematous and patient has no history of asymmetrical edema * Bilateral lower extremity Doppler study is pending Patient was started on heparin drip in the emergency department and continues on heparin drip appropriately by weightbase on the medical unit * Genetic markers were ordered. However, heparin had already been started. * Recommend outpatient follow-up with hematology due to the patient's age and new onset of acute clot. For now continue heparin drip and will follow echocardiogram results as well as lower extremity Doppler results No prior history of tobacco abuse, malignancy, cardiac arrhythmia, hormone replacement, sedentary activity, travel, previous clot. Thank you for including us in the care of this patient. We will follow along with you Please refer to Dr. Zaragoza's addendum and corrections for further recommendations. Acute cor pulmonale presence: unspecified Chronicity: unspecified Pulmonary embolism type: unspecified Qualified Code(s): I26.99 - Other pulmonary embolism without acute cor pulmonale Supervising Physician Co-Signing Physician Notes Patient seen and examined. Discussed extensively with patient, daughter, and A PP. History per TY note. The patient has a moderately severe pulmonary embolism with mild tachycardia. She is hemodynamically stable. She is currently receiving heparin. This appears to be an idiopathic clot and would favor lifelong anticoagulation unless there was a significant contraindication. We discussed potential thrombolysis with a small but statistically significant risk of bleeding complications on the order of 4 to 7%. The patient feels that she is doing reasonably well now and would like to hold off. We did discuss potential salvage TPA or half dose TPA should she deteriorate clinically. She is not experiencing any syncope or presyncope. Patient will be observed closely on telemetry. If her tachycardia should worsen or her oxygen requirement should escalate, would have a low threshold for transfer to the ICU and administration of half dose TPA (50 mg over 1 hour.). Echocardiogram is pending however biomarkers are already elevated and the echo would likely not change acute management. History of Present Illness Attending Physician: Louie Montiel MD History of Present Illness Attending: Dr. Zaragoza This is an 78-year-old female that presents with shortness of breath and found to have bilateral pulmonary emboli with no saddle involvement. The patient has a past medical history including hypertension, prediabetes, history of kidney stones, dyslipidemia, chronic cystitis, and lumbar spinal stenosis. The patient has no history of atrial fibrillation, flutter or arrhythmia. The patient states that she was in her usual state of health up until Tuesday. She was having tea with a friend and after consuming the tea she developed shortness of breath. She thought she was having allergic reaction but had no urticaria, rash, fever. She gave her today and thought she would improve by Tuesday. Symptoms continued without significant progression until today when she felt that she needed to come in to be checked because she was more short of breath when speaking. She denies any pleuritic pain. She has no fever. She denies hemoptysis. She has no cough. She denies any lower extremity edema or pain. The patient has no symptoms of arrhythmia or tachycardia. She denies history of recent syncope, presyncope, dizziness. She has no conventional symptoms of pulmonary emboli. The patient has no recent history of travel. She is a lifelong non-smoker. She is not on any hormone replacement. She has no history of malignancy. She has no history of prior thromboembolic disease. She denies recent illness. Aside from shortness of breath, she has no acute complaints. The patient states that she has no first-degree relatives with history of clot or malignancy with the exception of 1 daughter who has liver cancer that was recently diagnosed but has a history of tobacco and alcohol abuse. Allergies Allergy/AdvReac Type Severity Reaction Status Date / Time Penicillins Allergy Intermediate RASH ALL Verified 07/03/19 12:36 OVER BODY amoxicillin Allergy Unknown HIVES Verified 07/03/19 12:36 Home Medications Home Medications Medication Instructions Recorded Confirmed Type multivitamin 1 tab PO QAM #0 09/25/11 07/03/19 History acetaminophen [Tylenol Extra 1,000 mg PO Q4H PRN #0 tab 03/05/14 07/03/19 History Strength] cholecalciferol (vitamin D3) 1,000 unit PO QAM #0 03/05/14 07/03/19 History cyanocobalamin (vitamin B-12) 1,000 mcg PO QAM #0 tab 03/05/14 07/03/19 History diphenhydramine HCl [Benadryl] 25 mg PO QAM #0 cap 01/25/16 07/03/19 History lisinopril 10 mg PO QAM #0 tab 01/25/16 07/03/19 History omeprazole 20 mg PO HS #0 cap 01/25/16 07/03/19 History diltiazem HCl [DILT-XR] 240 mg PO QPM 02/05/19 07/03/19 History raloxifene 60 mg PO QPM 02/05/19 07/03/19 History aspirin 81 mg PO HS #0 tab 03/02/19 07/03/19 Rx codeine-guaifenesin 5 ml PO UD PRN 07/03/19 07/03/19 History Patient History Medical History Barretts esophagus Chronic lower back pain Diverticular disease GERD (gastroesophageal reflux disease) Hyperlipidemia Hypertension Kidney stone (Acute) Lumbar spinal stenosis (Acute 03/28/14) Osteoarthritis Osteoporosis Prediabetes Surgical History H/O cystoscopy cysto with stent placement 02/05/19 under [facility] H/O: section (Resolved) H/O: hysterectomy History of colonoscopy w/ polypectomy History of esophagogastroduodenoscopy (EGD) History of lumbar fusion lumbar History of nephrolithotomy with removal of calculi Hx of cholecystectomy Family History Brother Esophageal cancer Mother Leukemia Social History Preferred Language: Slovenian Communication Ability: Effective 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 Pleasant and talkative. Demonstrable dyspnea when speaking full sentences. At rest, no use of accessory muscles or evidence of shortness of breath. EYES: No icterus, gaze conjugate. Pupils equal round reactive to light NOSE: No evidence of epistaxis. MOUTH: No lesions or candidiasis. Tongue is midline. No facial droop. NECK: Supple. No evidence of carotid bruits. LUNGS: CTA B/L, no wheezes, rales or rhonchi in any lung field. HEART: Regular, rate controlled. ABDOMEN: Soft, NT, ND, BS Present. No guarding or rebound tenderness EXTREMITIES: No LE edema, pedal pulses intact and equal bilaterally. No calf pain NEURO: A&OX3. No evidence of focal deficits. Results & Data Vital Signs (Past 12 Hours) Vital Signs Temp Pulse Pulse Resp BP BP Pulse Ox 07/03/19 15:00 36.4 C L 105 H 22 129/85 91 07/03/19 14:28 80 24 134/89 97 07/03/19 13:37 96 07/03/19 13:36 95 07/03/19 12:45 87 21 147/80 H 95 07/03/19 11:46 86 20 128/81 96 07/03/19 11:44 91 H 20 96 07/03/19 11:23 36.3 C L 91 H 26 H 132/74 96 Laboratory Results 07/03/19 12:01 07/03/19 12:01 INR 1.0 (0.9-1.1) 07/03/19 12:[address] ANGIOGRAM OF THE CHEST CLINICAL HISTORY: Shortness of breath. Possible pulmonary embolism. COMPARISON STUDY: Chest x-ray dated 07/03/2019 TECHNIQUE: Following the IV administration of 118 mL of Optiray-320, CT angiogram of the thorax was performed from the thoracic inlet to the lung bases utilizing the pulmonary embolus protocol. Images are reviewed in the axial, sagittal, and coronal planes. IV contrast was administered without complication. MIP imaging was performed. A dose lowering technique was utilized adhering to the principles of ALARA. CT DOSE: 416.05 mGycm FINDINGS: There is a 2 cm right lobe thyroid nodule. Nonemergent thyroid ultrasonography could be obtained in follow-up as deemed clinically appropriate. Mediastinal lymph nodes are the upper limits of normal in size. There is no pathologic hilar or axillary lymphadenopathy. There was no evidence of thoracic aortic dilatation. There are moderately extensive bilateral pulmonary artery filling defects indicative of acute pulmonary embolism. There is slight straightening of the interventricular septum suggesting mild right ventricular strain. There are no pleural effusions. There are mild dependent atelectatic changes. IMPRESSION: 1. Moderately extensive acute bilateral embolism, with evidence of mild secondary right ventricular strain. ACT 112: Negative or not required by law. Electronically signed by: Ihsan Christianson M.D. 07/03/2019 1:04 PM PG Care Time/CCT Total # of Minutes Spent Total Time Spent with Patient: Total time spent is greater than 50% in coordination of care (as documented) at patient's floor/unit and/or counseling patient: 30 minutes
--- NOTE | 2019-07-03 16:15 | Ultrasound Report ---
US venous doppler LE bilateral CLINICAL HISTORY: Pulmonary embolism. COMPARISON STUDY: No previous studies for comparison. FINDINGS: On the right common no intraluminal thrombus was visualized. The veins were fully compressible from t he groin to the popliteal vein. There was normal augmentation. There was normal color flow within the proximal trifurcation veins of the right calf. On the left, there is evidence for acute DVT involving the distal superficial femoral vein, popliteal vein, anterior tibial and posterior tibial and peroneal veins. The common femoral vein in the left a ppeared patent. IMPRESSION: 1. Acute left lower extremity DVT involving the distal aspect of the superficial femoral vein, poplit eal vein, and trifurcation veins of the calf. 2. No evidence of right lower extremity DVT ACT 112: Negative or not required by law. Electronically signed by: Ihsan Christianson M.D. 07/03/2019 4:14 PM
[2019-07-03] MEDS: INSULIN ASPART 100 UNITS/ML 3 ML PEN SC SCH ×2 (17:51→21:49)
--- NOTE | 2019-07-03 17:58 | Emergency Department Note ---
Entered by Joni Wade acting as a scribe for Benito Padgett MD History of Present Illness General Chief complaint: Shortness of Breath/Dyspnea Stated complaint: SOB Time Seen by Provider: 07/03/19 11:40 Source: patient Limitations: no limitations History of Present Illness Onset (ago): day(s) 3 Location: chest Pain Consistency: + constant Quality: + constant Exacerbated By: + movement Associated symptoms: + denies other symptoms (abdominal pain, flu-like symptoms, ) and + other (lightheaded, shaky); no chest pain, no fever/chills and no nausea/vomiting (vomiting) The patient is a 78 year-old white female w/ PMHx status post laser lithotripsy of ureteral calculus, S/P cystoscopy with ureteral stent placement, dyslipidemia, diverticular disease of colon, cystocele, chronic cystitis, diabetes, hx of section, lumbar spinal stenosis, Barretts esophagus, hx of hysterectomy, hx of colonoscopy, hx of EGD, hx of lumbar fusion, who presents to the ED w/ CC of constant SOB beginning 3 days ago. The patient states the SOB started all of a sudden. She states she went to her PCP yesterday and had lab testing done but notes the results did not come back yet. She states the SOB is worse with exertion. She notes she got lightheaded before going to sleep last night. She states she felt shaky this morning. The patient denies having swelling in her legs, fevers, vomiting, blood in stool, chest pain, history of blood clots, abdominal pain, flu-like symptoms, and history of heart of lung disease. She notes her appetite is fine. She states she lives by herself. The patient denies taking supplements, stimulants, or being exposed to gases. Home Medications Home Medications Medication Instructions Recorded Confirmed Type multivitamin 1 tab PO QAM #0 09/25/11 07/03/19 History acetaminophen [Tylenol Extra 1,000 mg PO Q4H PRN #0 tab 03/05/14 07/03/19 History Strength] cholecalciferol (vitamin D3) 1,000 unit PO QAM #0 03/05/14 07/03/19 History cyanocobalamin (vitamin B-12) 1,000 mcg PO QAM #0 tab 03/05/14 07/03/19 History diphenhydramine HCl [Benadryl] 25 mg PO QAM #0 cap 01/25/16 07/03/19 History lisinopril 10 mg PO QAM #0 tab 01/25/16 07/03/19 History omeprazole 20 mg PO HS #0 cap 01/25/16 07/03/19 History diltiazem HCl [DILT-XR] 240 mg PO QPM 02/05/19 07/03/19 History raloxifene 60 mg PO QPM 02/05/19 07/03/19 History aspirin 81 mg PO HS #0 tab 03/02/19 07/03/19 Rx codeine-guaifenesin 5 ml PO UD PRN 07/03/19 07/03/19 History Allergies Allergy/AdvReac Type Severity Reaction Status Date / Time Penicillins Allergy Intermediate RASH ALL Verified 07/03/19 12:36 OVER BODY amoxicillin Allergy Unknown HIVES Verified 07/03/19 12:36 Past Med/Surg History Medical History Barretts esophagus Chronic lower back pain Diverticular disease GERD (gastroesophageal reflux disease) Hyperlipidemia Hypertension Kidney stone (Acute) Lumbar spinal stenosis (Acute 03/28/14) Osteoarthritis Osteoporosis Prediabetes Surgical History H/O cystoscopy cysto with stent placement 02/05/19 under [facility] H/O: section (Resolved) H/O: hysterectomy History of colonoscopy w/ polypectomy History of esophagogastroduodenoscopy (EGD) History of lumbar fusion lumbar History of nephrolithotomy with removal of calculi Hx of cholecystectomy Family History Brother Esophageal cancer Mother Leukemia Social History Preferred Language: Divehi Communication Ability: Effective 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 and A total of 10 systems reviewed and were otherwise negative Physical Exam Vital Signs Vital Signs - 24 hr 07/03/19 11:23 07/03/19 11:44 07/03/19 11:46 Temperature 36.3 C L Temperature Source Oral Pulse Rate 91 H 91 H Pulse Rate [Left] 86 Pulse Rhythm Regular Pulse Strength Normal Respiratory Rate 26 H 20 20 Respiratory Effort / Characteristics Non-Labored Spontaneous Non-Labored Spontaneous Respiratory Depth Normal Normal Respiratory Pattern Regular Blood Pressure 132/74 Blood Pressure [Right Arm] 128/81 Blood Pressure Mean 93 Blood Pressure Mean [Right Arm] 96 Blood Pressure Position Sitting Blood Pressure Position [Right Arm] Pulse Oximetry 96 96 96 Oxygen Delivery Method Room Air Room Air Room Air Oxygen Flow Rate Sepsis Recent Fever Within 48 Hours No Sepsis New/Unexplained Change in Mental Status No Sepsis Action Taken by Nursing No Action Required Oxygen Flow Rate - Titration Pulse Oximetry Post Tiitration 07/03/19 12:45 07/03/19 13:36 07/03/19 13:37 Temperature Temperature Source Pulse Rate Pulse Rate [Left] 87 Pulse Rhythm Pulse Strength Respiratory Rate 21 Respiratory Effort / Characteristics Spontaneous Respiratory Depth Respiratory Pattern Blood Pressure Blood Pressure [Right Arm] 147/80 H Blood Pressure Mean Blood Pressure Mean [Right Arm] 102 Blood Pressure Position Blood Pressure Position [Right Arm] Lying Pulse Oximetry 95 95 96 Oxygen Delivery Method Room Air Room Air Nasal Cannula Oxygen Flow Rate 2 Sepsis Recent Fever Within 48 Hours Sepsis New/Unexplained Change in Mental Status Sepsis Action Taken by Nursing Oxygen Flow Rate - Titration 2 Pulse Oximetry Post Tiitration 97 07/03/19 14:28 Temperature Temperature Source Pulse Rate 80 Pulse Rate [Left] Pulse Rhythm Pulse Strength Respiratory Rate 24 Respiratory Effort / Characteristics Respiratory Depth Respiratory Pattern Blood Pressure 134/89 Blood Pressure [Right Arm] Blood Pressure Mean Blood Pressure Mean [Right Arm] Blood Pressure Position Blood Pressure Position [Right Arm] Pulse Oximetry 97 Oxygen Delivery Method Room Air Oxygen Flow Rate Sepsis Recent Fever Within 48 Hours Sepsis New/Unexplained Change in Mental Status Sepsis Action Taken by Nursing Oxygen Flow Rate - Titration Pulse Oximetry Post Tiitration GENERAL: Well appearing, well nourished, non-toxic. EYE EXAM: Normal conjunctiva. PERRL, no anisocoria and EOM's grossly intact w/o pain. OROPHARYNX: Moist mucous membranes. Normal dentition. NECK: Supple, no nuchal rigidity, no adenopathy, non-tender. no signs of meningismus. LUNGS: Clear to auscultation. Normal chest wall mechanics. Mild tachypnea noted. HEART: NSR, no MRG. ABDOMEN: Abdomen soft, non-tender, normo-active bowel sounds, no masses, no rebound or guarding. BACK: No CVA TTP. SKIN: No rashes and no bruising. UPPER EXTREMITIES: Upper extremities are grossly normal. LOWER EXTREMITIES: No pitting edema. No calf pain. Negative Khushboo's sign. NEURO EXAM: Cranial nerves II-XII grossly intact, normal speech. Moves all 4 extremities on command w/o issue. Course Course 1228: The patient was evaluated in room C7, and a complete history and physical examination were performed. 1231: Continuous Cardiac Monitoring: An order was placed for continuous cardiac monitoring. The monitor shows a rate of 86 with a sinus rhythm. 1310: I discussed the patient's case with Nia Robertson PA-C. Dr. Tiana Robertson Hospitalist will evaluate the patient for further management. 1321: I reevaluated the patient. I updated the patient on the plan and she agrees. Administered Medications Heparin Sodium/Dextrose (Heparin Sodium/Dextrose) 25,000 units in 500 mls @ 0.02 mls/hr IV .Q24H [facility]; Protocol Stop: 08/02/19 13:14 Last Titration: 07/03/19 15:06 Dose: 1,100 units/hr, 22 mls/hr Documented by: [id number] Cosigned by: [id number] Admin: 07/03/19 13:51 Dose: 1,100 units/hr, 22 mls/hr Documented by: [id number] Cosigned by: [id number] Insulin Aspart (Novolog Flexpen) 0 units SC ACHS [facility] Stop: 08/02/19 16:29 Last Admin: 07/03/19 17:51 Dose: Not Given Documented by: [id number] Cosigned by: [id number] Discontinued Medications Heparin Sodium (Porcine) (Heparin Iv Bolus) 5,000 units IV NOW [facility] Stop: 07/03/19 13:43 Last Admin: 01/21/20 13:51 Dose: 5,000 units Documented by: [id number] Cosigned by: [id number] Heparin Sodium/Dextrose () 1 ea IV NOW [facility]; Protocol Stop: 07/03/19 13:13 Last Admin: 07/03/19 13:51 Dose: Not Given Documented by: [id number] Ioversol (Optiray 320 125ml) 118 ml IV ONCE PRN PRN Reason: Interaction Checking Stop: 07/07/19 12:48 Last Admin: 07/03/19 12:50 Dose: 118 ml Documented by: [id number] Critical Care Time Critical Care Time: Yes Total Critical Care Time: 62 I have personally spent 62 minutes of critical care time in the direct management of this patient. This includes bedside care, interpretation of diagnostic studies, and testing, discussion with consultants, patient, and family members, and other required patient management activities. This 62 minutes is in excess of all separately billable procedures. Medical Decision Making Differential Diagnosis Differential diagnoses includes but is not limited to pneumonia, bronchitis, COPD/Asthma exacerbation, pneumothorax, pulmonary embolism, congestive heart failure, acute coronary syndrome Medical Records Attestation: I reviewed the patient's medical records. Home Medications Current Medication List: was personally reviewed by me Laboratory Data Attestation: I reviewed the patient's lab results. Result diagrams: 07/03/19 12:01 07/03/19 12:01 Lab Results 07/03/19 07/03/19 07/03/19 Range/Units 12:01 12:01 12:01 WBC 9.15 (4.8-10.8) K/uL RBC 4.34 (4.2-5.4) M/uL Hgb 13.0 (12.0-16.0) g/dL Hct 39.7 (37-47) % MCV 91.5 (80-100) fL MCH 30.0 (25-34) pg MCHC 32.7 (32-36) g/dL RDW Std Deviation 44.9 (36.4-46.3) fL RDW Coeff of Taz 13.5 (11.5-14.5) % Plt Count 185 (130-400) K/uL MPV 10.3 (7.4-10.4) fL Immature Gran % (Auto) 0.3 % Neut % (Auto) 76.7 % Lymph % (Auto) 15.4 % [place] % (Auto) 7.2 % Eos % (Auto) 0.2 % Baso % (Auto) 0.2 % Immature Gran # (Auto) 0.03 H (0.00-0.02) K/uL Neut # (Auto) 7.01 H (1.4-6.5) K/uL Lymph # (Auto) 1.41 (1.2-3.4) K/uL [place] # (Auto) 0.66 H (0.11-0.59) K/uL Eos # (Auto) 0.02 (0-0.5) K/uL Baso # (Auto) 0.02 (0-0.2) K/uL PT 10.7 (9.0-12.0) Seconds INR 1.0 (0.9-1.1) APTT 27.9 (21.0-31.0) Seconds PTT Ratio 1.0 VBG pH (7.36-7.41) VBG pCO2 (38-50) mmHg VBG pO2 mmHg VBG HCO3 mmol/L VBG O2 Saturation % VBG Base Excess mEq/L Barometric Pressure mm/Hg Sodium 139 (136-145) mmol/L Potassium 4.0 (3.5-5.1) mmol/L Chloride 109 H (98-107) mmol/L Carbon Dioxide 23 (21-32) mmol/L Anion Gap 7.0 (3-11) BUN 19 H (7-18) mg/dl Creatinine 1.06 (0.6-1.2) mg/dl Est Cr Clr Drug Dosing 40.6 ml/min Est GFR ( Amer) 57.4 Est GFR (Non-Af Amer) 49.6 BUN/Creatinine Ratio 17.5 (10-20) Glucose 110 H (70-99) mg/dl Calcium 9.0 (8.5-10.1) mg/dl Magnesium 1.9 (1.8-2.4) mg/dl Total Bilirubin 0.9 (0.2-1) mg/dl AST 52 H (15-37) U/L ALT 43 (12-78) U/L Alkaline Phosphatase 59 (45-117) U/L Troponin I 0.052 H* (0-0.045) ng/ml NT-Pro-B Natriuret Pep 2094 H (0-1800) pg/ml Total Protein 7.3 (6.4-8.2) gm/dl Albumin 3.4 (3.4-5.0) gm/dl Globulin 3.9 (2.5-4.0) gm/dl Albumin/Globulin Ratio 0.9 (0.9-2) Urine Color Urine Appearance (Clear) Urine pH (4.5-7.5) Ur Specific [place] (1.000-1.030) Urine Protein (Negative) Urine Glucose (UA) (Negative) Urine Ketones (Negative) Urine Blood (Negative) Urine Nitrite (Negative) Urine Bilirubin (Negative) Urine Urobilinogen (Negative) Ur Leukocyte Esterase (Negative) Urine RBC (0-4) /hpf Urine WBC (0-5) /hpf Ur Epithelial Cells (0-5) /lpf Urine Bacteria (Negative) 07/03/19 07/03/19 Range/Units 12:01 12:41 WBC (4.8-10.8) K/uL RBC (4.2-5.4) M/uL Hgb (12.0-16.0) g/dL Hct (37-47) % MCV (80-100) fL MCH (25-34) pg MCHC (32-36) g/dL RDW Std Deviation (36.4-46.3) fL RDW Coeff of Taz (11.5-14.5) % Plt Count (130-400) K/uL MPV (7.4-10.4) fL Immature Gran % (Auto) % Neut % (Auto) % Lymph % (Auto) % [place] % (Auto) % Eos % (Auto) % Baso % (Auto) % Immature Gran # (Auto) (0.00-0.02) K/uL Neut # (Auto) (1.4-6.5) K/uL Lymph # (Auto) (1.2-3.4) K/uL [place] # (Auto) (0.11-0.59) K/uL Eos # (Auto) (0-0.5) K/uL Baso # (Auto) (0-0.2) K/uL PT (9.0-12.0) Seconds INR (0.9-1.1) APTT (21.0-31.0) Seconds PTT Ratio VBG pH 7.38 (7.36-7.41) VBG pCO2 40 (38-50) mmHg VBG pO2 30 mmHg VBG HCO3 23 mmol/L VBG O2 Saturation < 60.0 % VBG Base Excess -2.0 mEq/L Barometric Pressure 741.7 mm/Hg Sodium (136-145) mmol/L Potassium (3.5-5.1) mmol/L Chloride (98-107) mmol/L Carbon Dioxide (21-32) mmol/L Anion Gap (3-11) BUN (7-18) mg/dl Creatinine (0.6-1.2) mg/dl Est Cr Clr Drug Dosing ml/min Est GFR ( Amer) Est GFR (Non-Af Amer) BUN/Creatinine Ratio (10-20) Glucose (70-99) mg/dl Calcium (8.5-10.1) mg/dl Magnesium (1.8-2.4) mg/dl Total Bilirubin (0.2-1) mg/dl AST (15-37) U/L ALT (12-78) U/L Alkaline Phosphatase (45-117) U/L Troponin I (0-0.045) ng/ml NT-Pro-B Natriuret Pep (0-1800) pg/ml Total Protein (6.4-8.2) gm/dl Albumin (3.4-5.0) gm/dl Globulin (2.5-4.0) gm/dl Albumin/Globulin Ratio (0.9-2) Urine Color Yellow Urine Appearance Clear (Clear) Urine pH 6.5 (4.5-7.5) Ur Specific [place] 1.005 (1.000-1.030) Urine Protein Negative (Negative) Urine Glucose (UA) Negative (Negative) Urine Ketones Negative (Negative) Urine Blood Negative (Negative) Urine Nitrite Negative (Negative) Urine Bilirubin Negative (Negative) Urine Urobilinogen Negative (Negative) Ur Leukocyte Esterase 2+ H (Negative) Urine RBC 0-4 (0-4) /hpf Urine WBC 10-30 H (0-5) /hpf Ur Epithelial Cells 5-10 H (0-5) /lpf Urine Bacteria 2+ H (Negative) ECG Data Attestation: I personally reviewed and interpreted this ECG as follows: Indication: + SOB/dyspnea Rate (beats per minute): 86 ECG Intervals/blocks: + Normal QRS, + Normal QT, + Normal CT and + Normal QT-c ECG [place]: + Right axis deviation ECG ST segments: + T-wave inversions (V2) ECG Findings: + PVCs Comparison ECG Date: from (02/20/19) Change: the following changes noted (PVCs and TWI in V2 are new) Blood Pressure Blood Pressure Findings: Elevated blood pressure Blood Pressure Disposition: further management by hospitalist MDM Narrative The patient is a 78 year-old white female w/ PMHx status post laser lithotripsy of ureteral calculus, S/P cystoscopy with ureteral stent placement, dyslipidemia, diverticular disease of colon, cystocele, chronic cystitis, diabetes, hx of section, lumbar spinal stenosis, Barretts esophagus, hx of hysterectomy, hx of colonoscopy, hx of EGD, hx of lumbar fusion, who presents to the ED w/ CC of constant SOB beginning 3 days ago. Patient was seen and evaluated the bedside. The patient did present with some shortness of breath. The patient states that she does have some exertional dyspnea. No real change with position. The patient has not had much of in terms of infectious symptoms either. No prior history of DVT or PE. The patient denies any recent hospitalizations or surgeries in the last 6 weeks. The patient did have blood work completed along with a CT Stacy of the chest along with a chest x-ray. She is x-ray shows some basilar changes. The patient is currently not hypoxic and not tachycardic. The patient does have a positive troponin and elevated BNP. Patient CT angios does show extensive bilateral PEs. Patient was started on heparin bolus and drip. I did discuss the findings with the patient and then with the hospitalist. Patient was subsequently admitted to the medicine service. Patient during her time in the ER is not been very tachycardic has stable blood pressure and has not been hypoxic. Upon reassessment the patient was placed on a small amount of nasal cannula oxygen. There is some heart strain but this would not qualify as a massive PE does not require lytics at this time given that the patient is maintaining blood pressure. Patient was admitted to the medicine service. Impression & Plan Pulmonary emboli, SOB (shortness of breath), Elevated troponin Discharge Plan Visit Data *Final* Discharge Date/Time: 07/03/19 14:28 Chief Complaint: Shortness of Breath/Dyspnea Stated Complaint: SOB ED Provider: Benito Padgett Discharge Problem: Pulmonary emboli, SOB (shortness of breath), Elevated troponin Patient Disposition: Admitted As Inpatient Discharge Instructions Interventions: ED Discharge Assessment Last Done: 07/03/19 14:28 Discharge Problem: Pulmonary emboli Qualifiers: Pulmonary embolism type: unspecified Chronicity: unspecified Acute cor pulmonale presence: unspecified Qualified Code(s): I26.99 - Other pulmonary embolism without acute cor pulmonale The scribe's documentation has been prepared under my direction and personally reviewed by me in its entirety. I confirm that the note above accurately reflects all work, treatment, procedures, and medical decision making performed by me.
[2019-07-03] MEDS ORDERED: SODIUM CHLORIDE 0.9% 1000ML 1,000 ML IV SCH (18:15)
[2019-07-03 18:56] LABS: Partial Thromboplastin Ratio 2.5
[2019-07-03 19:02] LABS: Partial Thromboplastin Time 68.9 Seconds (21.0-31.0)
[2019-07-03] MEDS ORDERED: RALOXIFENE HCL 60 MG TAB PO SCH (21:00)
[2019-07-03] MEDS ORDERED: dilTIAZem HCL 240 MG CAPCR PO SCH (21:00)
[2019-07-03] MEDS: PANTOprazole 40 MG TAB PO SCH (21:50)
[2019-07-03] MEDS: ACETAMINOPHEN 325 MG TAB PO PRN (21:58)
[2019-07-03] MEDS ORDERED: DC ALL ANTICOAGULANTS STA (22:49)
[2019-07-03] MEDS ORDERED: PRIMARY PLUMSET, PE LINED TUBING, 113 IN, NON-DEHP (2260-0500) IV STA (22:49)
[2019-07-03] MEDS ORDERED: SODIUM CHLORIDE 0.9% 50 ML BAG IV STA (22:49)
[2019-07-03] MEDS ORDERED: ALTEPLASE, RECOMBINANT 50 MG in EMPTY BAG 0 ML IV STA (22:49)
--- NOTE | 2019-07-03 22:59 | Electrocardiogram Report ---
Test Reason : Blood Pressure : / mmHG Vent. Rate : 086 BPM Atrial Rate : 086 BPM P-R Int : 148 ms QRS Dur : 078 ms QT Int : 370 ms P-R-T Axes : 042 084 030 degrees QTc Int : 442 ms Sinus rhythm with occasional Premature ventricular complexes Nonspecific T wave abnormality Abnormal ECG When compared with ECG of 20-FEB-2019 10:42, Premature ventricular complexes are now Present Nonspecific T wave abnormality now evident in Anterior leads Confirmed by Maverick Carpenter ([id number]) on 07/03/2019 10:59:53 PM Referred By: REFERRED SELF Confirmed By:Maverick Carpenter
--- NOTE | 2019-07-03 23:04 | Communication Note ---
Date of Service: July 03, 2019 It was brought to my attention by nursing staff that the patient's tachypnea had worsened. Respiratory rate is now in the 30s. Patient continues to display dyspnea especially with any exertion or conversation. I talked to Dr. Zaragoza and made him aware of the change in patient's condition and he recommended infusing TPA 50 mg over 2 hours. Patient had previously been made aware that she is a low threshold for needing TPA infusion when she was examined by Dr. Zaragoza earlier today. Patient was unsure if she wanted to go forth with the TPA infusion and that she would like to speak with her daughter first. I also spoke with the daughter on the phone and explained that the tachypnea was likely a sign of worsening of the patient's pulmonary thrombus and clinical status. After speaking again with her mother both the daughter and patient agreed to proceed with TPA infusion. Dr. Sharma was also at the bedside and consented the patient for TPA administration which we will now proceed with. Will hold heparin infusion during TPA administration and restart at current rate once TPA has finished infusion. I have personally spent 30 minutes of critical care time in the direct management of this patient. This is a life/limb threatening event. This includes time spent evaluating patient, direct bedside care, chart review, placing orders, interpretation of diagnostic studies, discussion with consultants, patient, and family members, as well as other required patient management activities. This time is exclusive of all separately billable procedures, and teaching time and separate from and in addition to any other critical care service time. Thank you for allowing us to participate in the care of this patient. Please refer to my attending physician's documentation for any further recommendations. Attending addendum: Discussed case with TY overnight. I had presented the option for TPA to the patient and her daughter previously. See my progress note for additional details Mike Zaragoza MD
[2019-07-04 00:53] LABS: Troponin I 0.051 ng/ml (0-0.045)
[2019-07-04] MEDS ORDERED: MoRPHine SULFATE 2 MG/ML CARP IV STA (01:05)
[2019-07-04] MEDS ORDERED: MoRPHine SULFATE 2 MG/ML CARP ONE (01:07)
[2019-07-04 01:59] LABS: Hematocrit (blood only) 35.7 % (37-47); Mean Corpuscular Hemoglobin 30.5 pg (25-34); Mean Corpuscular Hgb Conc 33.6 g/dL (32-36); Mean Corpuscular Volume 90.6 fL (80-100); Mean Platelet Volume 10.2 fL (7.4-10.4); Platelet Count 172 K/uL (130-400); RDW Coefficient of Variation 13.5 % (11.5-14.5); RDW Standard Deviation 44.4 fL (36.4-46.3); Red Blood Count 3.94 M/uL (4.2-5.4); White Blood Count 10.54 K/uL (4.8-10.8)
[2019-07-04 02:16] LABS: Partial Thromboplastin Ratio 1.4; Partial Thromboplastin Time 38.5 Seconds (21.0-31.0)
[2019-07-04 02:26] LABS: BUN Creatinine Ratio 15.5 (10-20); Calcium 8.5 mg/dl (8.5-10.1); Creatinine Clr Calc Pharmacy 39.3 ml/min; Est GFR (African American) 56.8
[2019-07-04 02:40] LABS: Potassium 3.9 mmol/L (3.5-5.1)
[2019-07-04] MEDS ORDERED: LACTATED RINGER'S 1,000 ML IV SCH (02:45)
[2019-07-04] MEDS: INSULIN ASPART 100 UNITS/ML 3 ML PEN SC SCH ×4 (08:38→21:10)
[2019-07-04] MEDS ORDERED: lisinopriL 10 MG TAB PO SCH (09:00)
[2019-07-04 09:13] LABS: Partial Thromboplastin Time 53.8 Seconds (21.0-31.0)
--- NOTE | 2019-07-04 09:20 | Critical Care Progress Note ---
Date of Service July 04, 2019 Assessment & Plan (1) Pulmonary emboli: Impression: 78-year-old female admitted with unprovoked DVT and PE with significant clot burden and right heart strain based on CT scan and elevated biomarkers. 24-hour events: Patient was transferred to the ICU last evening due to increased work of breathing and tachycardia. Over the next several hours she was observed and had increasing tachypnea with persistent tachycardia. It was felt that she required salvage thrombolysis. Half dose TPA (50 mg) was administered and he mica was restarted. She is much better this morning. Recommendations: 1. Acute PE with RV strain: Status post thrombolysis. No evidence of bleeding complications currently. We will continue to monitor ICU 24 hours post TPA administration. Continue heparin infusion for now. Will need to transition either to Coumadin or [place] oral anticoagulant. Given the idiopathic nature of her clot and the significant nature of her clot would recommend lifelong anticoagulation unless there was a significant contraindication. Age- appropriate cancer screening should be conducted in the outpatient setting. Follow-up with echocardiogram. She may require a repeat echocardiogram in 3 to 4 months depending on results. 2. Acute hypoxemic respiratory failure: Secondary to acute PE. Improved this morning status post thrombolysis. Continue to wean oxygen as tolerated. 3. Asymptomatic bacteriuria. Does not require treatment at this point time. 4. Hypertension: Holding the patient's antihypertensives currently. 5. We will continue to monitor in ICU 24 hours post TPA administration per protocol. (2) Cor pulmonale: (3) Hypoxemia: Subjective Patient seen and examined. EMR reviewed. She feels like she is breathing better this morning. She is not having any chest pain or palpitations. Her heart rate has resolved. Her oxygenation is better. No evidence of bleeding. No new neurological symptoms. Review of Systems Review of Systems: Unchanged from prior Results & Data Vital Signs (Past 12 Hours) Vital Signs Temp Pulse Pulse Resp BP Pulse Ox 07/04/19 08:17 75 23 126/71 95 07/04/19 08:00 36.8 C 75 23 95 07/04/19 07:47 74 24 120/63 95 07/04/19 07:30 80 19 95 07/04/19 07:17 76 25 H 119/66 93 07/04/19 07:00 78 18 94 07/04/19 06:46 77 20 124/64 93 07/04/19 06:30 81 29 H 94 07/04/19 06:17 79 24 121/62 92 07/04/19 05:46 79 27 H 124/65 91 07/04/19 05:16 78 25 H 119/64 92 07/04/19 05:10 79 28 H 92 07/04/19 04:46 80 23 125/67 93 07/04/19 04:16 36.6 C 80 27 H 118/66 92 07/04/19 03:34 78 28 H 115/58 L 92 07/04/19 03:19 79 29 H 117/61 92 07/04/19 03:03 78 28 H 127/60 92 07/04/19 02:48 77 27 H 120/62 94 07/04/19 02:33 76 29 H 115/57 L 93 07/04/19 02:28 77 27 H 93 07/04/19 02:18 77 26 H 119/56 L 92 07/04/19 02:03 76 26 H 117/56 L 93 07/04/19 01:48 87 25 H 118/59 L 93 07/04/19 01:33 88 23 122/56 L 93 07/04/19 01:18 91 H 23 107/53 L 92 07/04/19 01:03 95 H 96 H 22 115/51 L 95 07/04/19 00:49 93 H 34 H 102/50 L 97 07/04/19 00:33 95 H 33 H 131/68 95 07/04/19 00:18 36.8 C 98 H 28 H 125/66 90 07/04/19 00:03 95 H 33 H 126/69 91 07/03/19 23:48 102 H 29 H 129/72 93 07/03/19 23:33 106 H 31 H 133/81 95 07/03/19 23:18 109 H 32 H 157/86 H 94 07/03/19 23:07 113 H 30 H 140/89 96 07/03/19 22:37 105 H 29 H 127/84 95 07/03/19 22:07 103 H 35 H 122/78 95 07/03/19 21:37 101 H 31 H 137/82 96 Laboratory Results 07/04/19 01:23 07/04/19 01:23 Diagnostic Findings Echocardiogram pending Coding Level of Care Code 31562 Subseq Hosp Care Lvl 3 Diagnoses Pulmonary emboli I26.99 Acute cor pulmonale presence: unspecified Chronicity: unspecified Pulmonary embolism type: unspecified Cor pulmonale I27.81 Hypoxemia R09.02 Time Spent (min) 45 (1) Pulmonary emboli Acute cor pulmonale presence: unspecified Chronicity: unspecified Pulmonary embolism type: unspecified Qualified Code(s): I26.99 - Other pulmonary embolism without acute cor pulmonale
[2019-07-04] MEDS: CHOLECALCIFEROL 1,000 UNITS 25 MCG TAB PO SCH (10:07)
[2019-07-04] MEDS: ACETAMINOPHEN 325 MG TAB PO PRN (10:07)
[2019-07-04] MEDS: MULTIVITAMIN TAB PO SCH (10:07)
[2019-07-04] MEDS: CYANOCOBALAMIN 500 MCG TABLET (VITAMIN B-12) PO SCH (10:07)
[2019-07-04] MEDS: HEPARIN SODIUM/DEXTROSE 25,000 UNITS/500 ML BAG IV SCH (15:03)
--- NOTE | 2019-07-04 18:10 | Hospitalist Progress Note ---
Date of Service July 04, 2019 Assessment & Plan (1) Pulmonary emboli: Acute bilateral Pulmonary embolism with Acute Cor Pulmonale Acute left lower extremity Deep Vein thrombosis -Pt is 78 y/o F with PMH HTN, HLD, diet controlled DM II, GERD, H/O kidney stones presented to ER with C/O SOB with exertion x 3 days. Denies CP, fever/chills, cough, recent immobilization, travel or surgery. Denies h/o DVT/PE or FH clotting disorder. -07/03/2019 CTA: Moderately extensive acute bilateral embolism, with evidence of mild secondary right ventricular strain -07/03/2019 ultrasound: Acute left lower extremity DVT involving the distal aspect of the superficial femoral vein, popliteal vein, and trifurcation veins of the calf. No evidence of right lower extremity DVT -admitted with unprovoked DVT and PE with significant clot burden and right heart strain based on CT scan and elevated biomarkers -was started on heparin IV on admission, and under Intensive Care Unit for because of tachypnea and also because she was given TPA thrombolysis -patient will be continued to be monitored in the ICU on 07/04/2019 -continue heparin IV for now (2) SOB (shortness of breath): Acute hypoxemic respiratory failure Secondary to acute Pulmonary embolism -breathing improved after TPA thrombolysis -monitor supplementary oxygen needs (3) Elevated troponin: -elevated Troponins on admission 0.052, 0.065, 0.051 -likely due to cardiac strain from pulmonary embolism -echocardiogram with normal left ventricular function -on anticoagulation for pulmonary embolism and deep vein thrombosis (4) Hypertension: -home medications of Diltiazem, lisinopril are held (5) Asymptomatic bacteriuria: -UA: 2+leuk esterase, 10-30 WBC, 2+bacteria -Denies hematuria, dysuria, urinary frequency, urgency, back pain, flank pain -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 Diet controlled Random glucose in ER was 110 -Diabetic diet -Novolog sliding scale per protocol if needed (7) GERD (gastroesophageal reflux disease): -Continue PPI Full Code Subjective Patient remains in the Intensive care unit and on IV heparin drip. breathing comfortably. denies chest pain or palpitations. no vomiting. no nausea. no dizziness. no headache. Review of Systems Review of Systems: All systems reviewed & are unremarkable except as noted in HPI & below Physical Exam Constitutional: comfortable Eyes: PERRL, conjunctivae normal, anicteric sclerae EOM intact bilaterally ENMT: external ear and nose normal, oropharynx normal Neck: normal visual inspection Respiratory: normal respiratory effort, lungs clear to auscultation Cardiovascular: Rate/Rhythm: regular rate and regular rhythm Gastrointestinal (Abdomen): normal bowel sounds, soft, nontender, no hepatosplenomegaly Musculoskeletal: Head/Neck/Chest: normocephalic and head atraumatic Neurologic: PERRL, EOMI, accommodation nl, no face palsy, no dysarthria CN's II-XI intact bilaterally Psychiatric: A+Ox3, euthymic affect Results & Data Vital Signs (Past 12 Hours) Vital Signs Temp Pulse Resp BP Pulse Ox 07/04/19 13:17 71 23 115/54 L 92 07/04/19 13:00 73 24 91 07/04/19 12:47 70 24 107/54 L 92 07/04/19 12:30 82 26 H 94 07/04/19 12:17 84 22 121/57 L 94 07/04/19 12:00 36.8 C 85 28 H 96 07/04/19 11:47 86 20 139/61 96 07/04/19 11:30 86 21 96 07/04/19 11:17 73 26 H 112/57 L 95 07/04/19 11:01 79 33 H 95 07/04/19 10:47 76 26 H 111/55 L 95 07/04/19 10:30 77 24 96 07/04/19 10:17 81 31 H 127/69 96 07/04/19 10:00 76 24 95 07/04/19 09:47 73 25 H 125/63 95 07/04/19 09:30 73 22 96 07/04/19 09:17 72 25 H 120/68 96 07/04/19 09:00 74 25 H 95 07/04/19 08:47 75 29 H 123/71 96 07/04/19 08:30 80 22 95 07/04/19 08:18 80 25 H 95 07/04/19 08:17 75 23 126/71 95 07/04/19 08:00 36.8 C 72 23 95 07/04/19 07:47 74 24 120/63 95 07/04/19 07:30 80 19 95 07/04/19 07:17 76 25 H 119/66 93 07/04/19 07:00 78 18 94 07/04/19 06:46 77 20 124/64 93 07/04/19 06:30 81 29 H 94 07/04/19 06:17 79 24 121/62 92 (1) Pulmonary emboli Acute cor pulmonale presence: unspecified Chronicity: unspecified Pulmonary embolism type: unspecified Qualified Code(s): I26.99 - Other pulmonary embolism without acute cor pulmonale
[2019-07-04] MEDS ORDERED: ACETAMINOPHEN 325 MG TAB PO PRN (18:21)
[2019-07-04] MEDS ORDERED: ACETAMINOPHEN 325 MG TAB PO STA (21:05)
[2019-07-04] MEDS: PANTOprazole 40 MG TAB PO SCH (21:10)
--- NOTE | 2019-07-04 23:18 | Electrocardiogram Report ---
Test Reason : Blood Pressure : / mmHG Vent. Rate : 079 BPM Atrial Rate : 079 BPM P-R Int : 140 ms QRS Dur : 080 ms QT Int : 402 ms P-R-T Axes : 032 038 063 degrees QTc Int : 460 ms Normal sinus rhythm Low voltage QRS T wave abnormality, consider anterolateral ischemia Abnormal ECG When compared with ECG of 03-JUL-2019 11:30, Premature ventricular complexes are no longer Present T wave inversion now evident in Anterolateral leads Confirmed by Maverick Carpenter ([id number]) on 07/04/2019 11:18:54 PM Referred By: REFERRED SELF Confirmed By:Maverick Carpenter
[2019-07-05 04:20] LABS: Basophils # (auto) 0.01 K/uL (0-0.2); Basophils % (auto) 0.1 %; Eosinophils # (auto) 0.15 K/uL (0-0.5); Eosinophils % (auto) 2.2 %; Hematocrit (blood only) 32.6 % (37-47); Hemoglobin 10.5 g/dL (12.0-16.0); Immature Granulocytes # (auto) 0.01 K/uL (0.00-0.02); Immature Granulocytes % (auto) 0.1 %; Lymphocytes % (auto) 31.3 %; Mean Corpuscular Hemoglobin 29.4 pg (25-34); Mean Corpuscular Hgb Conc 32.2 g/dL (32-36); Mean Corpuscular Volume 91.3 fL (80-100); Mean Platelet Volume 9.6 fL (7.4-10.4); Monocytes # (auto) 0.49 K/uL (0.11-0.59); Monocytes % (auto) 7.3 %; Neutrophils # (auto) 3.96 K/uL (1.4-6.5); Platelet Count 180 K/uL (130-400); RDW Coefficient of Variation 13.6 % (11.5-14.5); RDW Standard Deviation 45.3 fL (36.4-46.3); Red Blood Count 3.57 M/uL (4.2-5.4); White Blood Count 6.72 K/uL (4.8-10.8)
[2019-07-05 04:36] LABS: BUN Creatinine Ratio 15.2 (10-20); Calcium 8.3 mg/dl (8.5-10.1); Est GFR (African American) 58.1; Est GFR (Non-African American) 50.1; Potassium 3.6 mmol/L (3.5-5.1)
[2019-07-05 04:46] LABS: INR 1.1 (0.9-1.1); Partial Thromboplastin Ratio 1.8; Prothrombin Time 11.4 Seconds (9.0-12.0)
[2019-07-05 04:59] LABS: Partial Thromboplastin Time 49.8 Seconds (21.0-31.0)
[2019-07-05] MEDS ORDERED: POTASSIUM CHLORIDE 20 MEQ TABCR PO SCH (06:30)
--- NOTE | 2019-07-05 08:09 | Critical Care Progress Note ---
Date of Service July 05, 2019 Assessment & Plan (1) Pulmonary emboli: Impression: 78-year-old female admitted with unprovoked DVT and PE with significant clot burden and right heart strain based on CT scan and elevated biomarkers. 24-hour events: No acute events overnight. Remains hemodynamically stable. Blood pressure and heart rate are acceptable. Oxygenating well on minimal oxygen Recommendations: 1. Acute PE with RV strain: Status post thrombolysis. No evidence of bleeding complications currently. Echo shows mild RV strain. Would recommend repeating echocardiogram in 3 to 6months. Recommend lifelong anticoagulation unless a significant contraindication exists. Okay to transition to either Coumadin or novel oral anticoagulants. If transitioning to Coumadin, recommend heparin continue until INR is therapeutic for greater than 24hours. If transitioning to Coumadin, will need least 5 days of heparin however low molecular weight heparin may be substituted for heparin infusion. Discontinue Rudd. Activity as tolerated. Physical therapy and Occupational Therapy consultations. 2. Acute hypoxemic respiratory failure: Secondary to acute PE. Continue to wean oxygen as tolerated. 3. Asymptomatic bacteriuria. Does not require treatment at this point time. 4. Hypertension: Holding the patient's antihypertensives currently. 5. Patient is stable to return back to the floor on telemetry under the care of the hospitalists. We will continue to follow for pulmonary. Please call if questions (2) Cor pulmonale: (3) Hypoxemia: Subjective Patient offers no complaints this morning. She denies chest pain palpitations or shortness of breath. No cough or hemoptysis. No bleeding complications. She overall feels well and is anxious to get out of bed Review of Systems Review of Systems: Unchanged from prior Physical Exam Constitutional: WD/WN, vitals as above Neck: trachea midline, no thyromegaly Respiratory: normal respiratory effort, lungs clear to auscultation Cardiovascular: RRR, no murmur, no edema Gastrointestinal (Abdomen): normal bowel sounds, soft, nontender, no hepatosplenomegaly Musculoskeletal: Extremities: extremities normal to inspection Skin: no rashes, warm and dry Neurologic: Nonfocal exam Lymphatic: no cervical lymphadenopathy Results & Data Vital Signs (Past 12 Hours) Vital Signs Temp Pulse Resp BP Pulse Ox 07/05/19 06:30 77 19 97 07/05/19 06:19 69 21 111/60 98 07/05/19 06:00 65 21 97 07/05/19 05:47 64 21 114/57 L 97 07/05/19 05:30 64 19 96 07/05/19 05:17 66 21 115/62 96 07/05/19 05:00 62 20 96 07/05/19 04:47 65 22 107/55 L 96 07/05/19 04:30 63 23 96 07/05/19 04:17 65 22 104/56 L 95 07/05/19 04:00 36.7 C 65 22 95 07/05/19 03:47 68 20 103/50 L 96 07/05/19 03:30 64 23 94 07/05/19 03:17 64 22 97/42 L 95 07/05/19 03:00 65 21 93 07/05/19 02:50 66 19 111/49 L 92 07/05/19 02:31 65 18 97 07/05/19 02:30 73 19 110/70 97 07/05/19 02:17 71 22 80/45 L 97 07/05/19 02:01 66 21 95 07/05/19 01:47 74 21 105/63 96 07/05/19 01:30 67 21 94 07/05/19 01:17 73 18 121/60 94 07/05/19 01:00 68 23 92 07/05/19 00:47 70 20 107/49 L 94 07/05/19 00:30 66 22 92 07/05/19 00:17 36.8 C 68 23 106/48 L 92 07/05/19 00:00 36.8 C 76 19 91 07/04/19 23:47 70 23 106/53 L 93 07/04/19 23:30 69 22 93 07/04/19 23:17 74 28 H 103/46 L 92 07/04/19 23:00 71 21 93 07/04/19 22:47 72 21 118/62 95 07/04/19 22:30 74 25 H 95 07/04/19 22:18 74 21 130/67 94 07/04/19 22:00 73 25 H 95 07/04/19 21:47 79 29 H 142/72 H 96 07/04/19 21:30 75 22 96 07/04/19 21:17 73 27 H 123/67 96 07/04/19 21:00 80 27 H 97 07/04/19 20:47 75 28 H 117/83 99 07/04/19 20:30 72 28 H 96 07/04/19 20:17 73 28 H 125/65 96 Laboratory Results 07/05/19 04:08 07/05/19 04:08 Diagnostic Findings Echocardiogram from 07/04/2019 showed an ejection fraction of greater than 70% with mild concentric LVH. Grade 1 diastolic dysfunction was noted. Borderline dilatation of the right ventricle with moderate tricuspid regurgitation and an estimated right ventricular systolic pressure of 40-50. Coding Level of Care Code 94856 Subseq Hosp Care Lvl 3 Diagnoses Pulmonary emboli I26.99 Acute cor pulmonale presence: unspecified Chronicity: unspecified Pulmonary embolism type: unspecified Cor pulmonale I27.81 Hypoxemia R09.02 Time Spent (min) 28 Comment Discussed with ICU nurse and hospitalist as well as patient at bedside (1) Pulmonary emboli Acute cor pulmonale presence: unspecified Chronicity: unspecified Pulmonary embolism type: unspecified Qualified Code(s): I26.99 - Other pulmonary embolism without acute cor pulmonale
[2019-07-05] MEDS: CHOLECALCIFEROL 1,000 UNITS 25 MCG TAB PO SCH (08:33)
[2019-07-05] MEDS: MULTIVITAMIN TAB PO SCH (08:33)
[2019-07-05] MEDS: INSULIN ASPART 100 UNITS/ML 3 ML PEN SC SCH ×4 (08:34→22:13)
[2019-07-05] MEDS: CYANOCOBALAMIN 500 MCG TABLET (VITAMIN B-12) PO SCH (08:34)
--- NOTE | 2019-07-05 10:08 | Hospitalist Progress Note ---
Date of Service July 05, 2019 Assessment & Plan (1) Pulmonary emboli: Acute bilateral Pulmonary embolism with Acute Cor Pulmonale Acute left lower extremity Deep Vein thrombosis -Pt is 78 y/o F with PMH HTN, HLD, diet controlled DM II, GERD, H/O kidney stones presented to ER with C/O SOB with exertion x 3 days. Denies CP, fever/chills, cough, recent immobilization, travel or surgery. Denies h/o DVT/PE or FH clotting disorder. -07/03/2019 CTA: Moderately extensive acute bilateral embolism, with evidence of mild secondary right ventricular strain -07/03/2019 ultrasound: Acute left lower extremity DVT involving the distal aspect of the superficial femoral vein, popliteal vein, and trifurcation veins of the calf. No evidence of right lower extremity DVT -admitted with unprovoked DVT and PE with significant clot burden and right heart strain based on CT scan and elevated biomarkers -was started on heparin IV on admission, and under Intensive Care Unit for because of tachypnea and also because she was given TPA thrombolysis -patient was continued to be monitored in the ICU on 07/04/2019 and plans to trasnfer out of ICU on 07/05/2019 -continue heparin IV for now, currently the discussion between patient and case management is about transitioning to which oral anticoagulation based on efficacy and potential financial costs to the patient. (2) SOB (shortness of breath): Acute hypoxemic respiratory failure Secondary to acute Pulmonary embolism -breathing improved after TPA thrombolysis -monitor supplementary oxygen needs (3) Elevated troponin: -elevated Troponins on admission 0.052, 0.065, 0.051 -likely due to cardiac strain from pulmonary embolism -echocardiogram with normal left ventricular function -on anticoagulation for pulmonary embolism and deep vein thrombosis (4) Hypertension: -home medications of Diltiazem, lisinopril are held (5) Asymptomatic bacteriuria: -UA: 2+leuk esterase, 10-30 WBC, 2+bacteria -Denies hematuria, dysuria, urinary frequency, urgency, back pain, flank pain -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 Diet controlled Random glucose in ER was 110 -Diabetic diet -Novolog sliding scale per protocol if needed (7) GERD (gastroesophageal reflux disease): -Continue PPI Full Code Subjective Patient seen and examined this AM in the ICU. She was seen with nasal cannula oxygen and ambulating with therapy. Patient breathing comfortable. no chest pain. no palpitations. no abdomen pain. no nausea. no vomiting. ICU physician allows hospitalist physician to transfer out of ICU Review of Systems Review of Systems: All systems reviewed & are unremarkable except as noted in HPI & below Physical Exam Constitutional: comfortable Eyes: PERRL, conjunctivae normal, anicteric sclerae EOM intact bilaterally ENMT: external ear and nose normal, oropharynx normal Neck: normal visual inspection Respiratory: normal respiratory effort, lungs clear to auscultation Cardiovascular: Rate/Rhythm: regular rate and regular rhythm Gastrointestinal (Abdomen): normal bowel sounds, soft, nontender, no hepatosplenomegaly Musculoskeletal: Head/Neck/Chest: normocephalic and head atraumatic Neurologic: PERRL, EOMI, accommodation nl, no face palsy, no dysarthria CN's II-XI intact bilaterally Psychiatric: A+Ox3, euthymic affect Results & Data Vital Signs (Past 12 Hours) Vital Signs Temp Pulse Resp BP Pulse Ox 07/05/19 09:30 74 19 98 07/05/19 09:18 72 29 H 126/61 07/05/19 09:00 77 20 99 07/05/19 08:58 74 16 126/75 99 07/05/19 08:55 76 21 146/65 H 90 07/05/19 08:30 79 17 99 07/05/19 08:18 78 21 116/51 L 99 07/05/19 08:00 78 19 99 07/05/19 07:48 75 28 H 122/69 97 07/05/19 07:30 78 13 98 07/05/19 07:18 68 21 142/70 H 98 07/05/19 07:00 65 20 97 07/05/19 06:48 67 22 117/78 97 07/05/19 06:30 77 19 97 07/05/19 06:19 69 21 111/60 98 07/05/19 06:00 65 21 97 07/05/19 05:47 64 21 114/57 L 97 07/05/19 05:30 64 19 96 07/05/19 05:17 66 21 115/62 96 07/05/19 05:00 62 20 96 07/05/19 04:47 65 22 107/55 L 96 07/05/19 04:30 63 23 96 07/05/19 04:17 65 22 104/56 L 95 07/05/19 04:00 36.7 C 65 22 95 07/05/19 03:47 68 20 103/50 L 96 07/05/19 03:30 64 23 94 07/05/19 03:17 64 22 97/42 L 95 07/05/19 03:00 65 21 93 07/05/19 02:50 66 19 111/49 L 92 07/05/19 02:31 65 18 97 07/05/19 02:30 73 19 110/70 97 07/05/19 02:17 71 22 80/45 L 97 07/05/19 02:01 66 21 95 07/05/19 01:47 74 21 105/63 96 07/05/19 01:30 67 21 94 07/05/19 01:17 73 18 121/60 94 07/05/19 01:00 68 23 92 07/05/19 00:47 70 20 107/49 L 94 07/05/19 00:30 66 22 92 07/05/19 00:17 36.8 C 68 23 106/48 L 92 07/05/19 00:00 36.8 C 76 19 91 07/04/19 23:47 70 23 106/53 L 93 07/04/19 23:30 69 22 93 07/04/19 23:17 74 28 H 103/46 L 92 07/04/19 23:00 71 21 93 07/04/19 22:47 72 21 118/62 95 07/04/19 22:30 74 25 H 95 07/04/19 22:18 74 21 130/67 94 (1) Pulmonary emboli Acute cor pulmonale presence: unspecified Chronicity: unspecified Pulmonary embolism type: unspecified Qualified Code(s): I26.99 - Other pulmonary embolism without acute cor pulmonale
[2019-07-05] MEDS ORDERED: [UNRECOGNIZED DRUG - REMARK] ONE (13:30)
[2019-07-05] MEDS ORDERED: APIXABAN 5 MG TABLET PO ONE (13:30)
[2019-07-05] MEDS: HEPARIN SODIUM/DEXTROSE 25,000 UNITS/500 ML BAG IV SCH (16:21)
[2019-07-05] MEDS: PANTOprazole 40 MG TAB PO SCH (20:11)
[2019-07-05] MEDS: APIXABAN 5 MG TABLET PO SCH (20:12)
[2019-07-06] MEDS ORDERED: IBUPROFEN 200 MG TAB PO STA (00:49)
--- NOTE | 2019-07-06 06:11 | Electrocardiogram Report ---
Test Reason : Blood Pressure : / mmHG Vent. Rate : 079 BPM Atrial Rate : 079 BPM P-R Int : 150 ms QRS Dur : 080 ms QT Int : 382 ms P-R-T Axes : 038 010 021 degrees QTc Int : 438 ms Normal sinus rhythm Normal ECG When compared with ECG of 04-JUL-2019 06:36, Nonspecific T wave abnormality no longer evident in Anterolateral leads Confirmed by Maverick Carpenter ([id number]) on 07/06/2019 6:11:24 AM Referred By: REFERRED SELF Confirmed By:Maverick Carpenter
[2019-07-06] MEDS: CYANOCOBALAMIN 500 MCG TABLET (VITAMIN B-12) PO SCH (07:59)
[2019-07-06] MEDS: INSULIN ASPART 100 UNITS/ML 3 ML PEN SC SCH ×2 (07:59→12:47)
[2019-07-06] MEDS: CHOLECALCIFEROL 1,000 UNITS 25 MCG TAB PO SCH (07:59)
[2019-07-06] MEDS: APIXABAN 5 MG TABLET PO SCH (07:59)
[2019-07-06] MEDS: MULTIVITAMIN TAB PO SCH (07:59)
[2019-07-06 08:04] LABS: Basophils # (auto) 0.01 K/uL (0-0.2); Basophils % (auto) 0.2 %; Eosinophils # (auto) 0.09 K/uL (0-0.5); Eosinophils % (auto) 1.7 %; Hematocrit (blood only) 33.2 % (37-47); Hemoglobin 11.1 g/dL (12.0-16.0); Immature Granulocytes # (auto) 0.01 K/uL (0.00-0.02); Immature Granulocytes % (auto) 0.2 %; Lymphocytes # (auto) 1.59 K/uL (1.2-3.4); Lymphocytes % (auto) 30.3 %; Mean Corpuscular Hemoglobin 30.4 pg (25-34); Mean Platelet Volume 9.7 fL (7.4-10.4); Monocytes # (auto) 0.49 K/uL (0.11-0.59); Monocytes % (auto) 9.4 %; Neutrophils # (auto) 3.05 K/uL (1.4-6.5); Neutrophils % (auto) 58.2 %; Platelet Count 198 K/uL (130-400); RDW Coefficient of Variation 13.3 % (11.5-14.5); RDW Standard Deviation 44.2 fL (36.4-46.3); Red Blood Count 3.65 M/uL (4.2-5.4); White Blood Count 5.24 K/uL (4.8-10.8)
[2019-07-06 08:20] LABS: Albumin Level 2.9 gm/dl (3.4-5.0); BUN Creatinine Ratio 20.5 (10-20); Calcium 8.6 mg/dl (8.5-10.1); Est GFR (African American) 59.5; Est GFR (Non-African American) 51.3
[2019-07-06 08:23] LABS: Albumin Globulin Ratio 0.8 (0.9-2); Bilirubin,Total 0.4 mg/dl (0.2-1); Globulin 3.5 gm/dl (2.5-4.0); Total Protein 6.4 gm/dl (6.4-8.2)
[2019-07-06 09:19] LABS: Mean Corpuscular Hgb Conc 33.4 g/dL (32-36)
--- NOTE | 2019-07-06 11:16 | Pulmonology Progress Note ---
Date of Service July 06, 2019 Assessment & Plan (1) Pulmonary emboli: Impression: 78-year-old female admitted with unprovoked DVT and PE with significant clot burden and right heart strain based on CT scan and elevated biomarkers. 24-hour events: No acute events overnight. Remains hemodynamically stable. Blood pressure and heart rate are acceptable. Oxygenating well on minimal oxygen Recommendations: 1. Acute PE with RV strain: Status post thrombolysis. Doing quite well clinically. Would recommend repeating echocardiogram in 3 to 6months. Recommend lifelong anticoagulation unless a significant contraindication exists. Transitioning to Eliquis 2. Acute hypoxemic respiratory failure: Secondary to acute PE. Continue to wean oxygen as tolerated. Patient appears to be doing quite well clinically and from a pulmonary standpoint is stable to discharge with outpatient follow-up as noted above. Available to see over weekend if issues. Call if questions Acute cor pulmonale presence: unspecified Chronicity: unspecified Pulmonary embolism type: unspecified Qualified Code(s): I26.99 - Other pulmonary embolism without acute cor pulmonale (2) Cor pulmonale: (3) Hypoxemia: Subjective Has not had any hemoptysis. No syncope or presyncope with ambulation. Patient offers no complaints this morning. She denies chest pain palpitations or shortness of breath. No cough or hemoptysis. No bleeding complications. She overall feels well and is anxious to get out of bed Review of Systems Review of Systems: Unchanged from prior Physical Exam Constitutional: WD/WN, vitals as above Neck: trachea midline, no thyromegaly Respiratory: normal respiratory effort, lungs clear to auscultation Cardiovascular: RRR, no murmur, no edema Gastrointestinal (Abdomen): normal bowel sounds, soft, nontender, no hepatosplenomegaly Musculoskeletal: Extremities: extremities normal to inspection Skin: no rashes, warm and dry Lymphatic: no cervical lymphadenopathy Results & Data Vital Signs (Past 12 Hours) Vital Signs Temp Pulse Pulse Resp BP BP Pulse Ox 07/06/19 08:00 66 07/06/19 07:24 36.4 C L 70 18 160/79 H 98 07/06/19 04:30 36.5 C 69 17 126/73 95 07/06/19 00:49 36.8 C 78 18 155/74 H 95 07/06/19 00:00 66 PG Care Time/CCT Total # of Minutes Spent Total Time Spent with Patient: Total time spent is greater than 50% in coordination of care (as documented) at patient's floor/unit and/or counseling patient: Coding Level of Care Code 97760 Subseq Hosp Care Lvl 2 Diagnoses Pulmonary emboli I26.99 Acute cor pulmonale presence: unspecified Chronicity: unspecified Pulmonary embolism type: unspecified Cor pulmonale I27.81 Hypoxemia R09.02
[2019-07-06] MEDS ORDERED: lisinopriL 10 MG TAB PO SCH (12:00)
--- NOTE | 2019-07-06 13:05 | Hospitalist Progress Note ---
Date of Service July 06, 2019 Assessment & Plan (1) Pulmonary emboli: Acute bilateral Pulmonary embolism with Acute Cor Pulmonale Acute left lower extremity Deep Vein thrombosis -Pt is 78 y/o F with PMH HTN, HLD, diet controlled DM II, GERD, H/O kidney stones presented to ER with C/O SOB with exertion x 3 days. Denies CP, fever/chills, cough, recent immobilization, travel or surgery. Denies h/o DVT/PE or FH clotting disorder. -07/03/2019 CTA: Moderately extensive acute bilateral embolism, with evidence of mild secondary right ventricular strain -07/03/2019 ultrasound: Acute left lower extremity DVT involving the distal aspect of the superficial femoral vein, popliteal vein, and trifurcation veins of the calf. No evidence of right lower extremity DVT -admitted with unprovoked DVT and PE with significant clot burden and right heart strain based on CT scan and elevated biomarkers -was started on heparin IV on admission, and under Intensive Care Unit for because of tachypnea and also because she was given TPA thrombolysis -patient was continued to be monitored in the ICU on 07/04/2019 and plans to trasnfer out of ICU on 07/05/2019 -continue heparin IV for now, currently the discussion between patient and case management is about transitioning to which oral anticoagulation based on efficacy and potential financial costs to the patient. -07/06/2019 discharge medication of Eliquis (Apixaban) sent electronically to [facility] [address] [place] [address]. Eliquis was started on 07/05/2019 in the hospital. Dosing instructions for Eliquis is 10 mg twice daily for 7 days followed by 5 mg twice daily Because this is an unprovoked pulmonary embolism/deep vein thrombosis patient will need more than 3 months of anticoagulation and may need lifelong anticoagulation. Factor 2 (Promthrombin) mutation test and Factor V Leiden mutation test drawn on 07/03/2019 results are pending and patient's family doctor should follow up the results. Patient may benefit with referral to clinical rehabilitation specialist and malignancy workup as deemed necessary by primary care doctor Patient should not take aspirin at this time while on Eliquis to prevent bleeding risks Based on blood pressure and heart rate monitoring in the hospital, patient should continue taking lisinopril 10 mg daily, patient should avoid diltiazem until follow up with primary care doctor for now Patient has colonization of E.coli in urinary tract and no antibiotics needed. No dysuria symptoms Management of pre-diabetes as per primary care doctor Patient may call [facility] [phone] Abdiel Dia, hospitalist if any questions about discharge medications (2) SOB (shortness of breath): Acute hypoxemic respiratory failure Secondary to acute Pulmonary embolism -breathing improved after TPA thrombolysis -on room air now (3) Elevated troponin: -elevated Troponins on admission 0.052, 0.065, 0.051 -likely due to cardiac strain from pulmonary embolism -echocardiogram with normal left ventricular function -on anticoagulation for pulmonary embolism and deep vein thrombosis (4) Hypertension: -resumed lisinopril 10 mg daily on 07/06/2019, management as above to stop any diltiazem on discharge until follow up with primary care doctor (5) Asymptomatic bacteriuria: -UA: 2+leuk esterase, 10-30 WBC, 2+bacteria -Denies hematuria, dysuria, urinary frequency, urgency, back pain, flank pain -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 Diet controlled Random glucose in ER was 110 -Diabetic diet and sliding scale insulin while inpatient -Management of pre-diabetes as per primary care doctor -Novolog sliding scale per protocol if needed (7) GERD (gastroesophageal reflux disease): -Continue PPI Discharge Diagnosis: Acute bilateral Pulmonary embolism with Acute Cor Pulmonale, Acute left lower extremity Deep Vein thrombosis, Acute hypoxemic respiratory failure Secondary to acute Pulmonary embolism, Elevated troponin, Hypertension, Prediabetes Subjective Patient breathing on room air. no acute distress. no acute shortness of breath. blood pressure improved from recent low normotensive to hypertension. Patient restarted home dose lisinopril. denies chest pain or palpitations or headache or dizziness or lightheadedness. no abdominal pain. no nausea. no vomiting. Patient reports she feels ready to go home. Discharge instructions discussed at length Review of Systems Review of Systems: All systems reviewed & are unremarkable except as noted in HPI & below Physical Exam Constitutional: comfortable Eyes: PERRL, conjunctivae normal, anicteric sclerae EOM intact bilaterally ENMT: external ear and nose normal, oropharynx normal Neck: normal visual inspection Respiratory: normal respiratory effort, lungs clear to auscultation Cardiovascular: Rate/Rhythm: regular rate and regular rhythm Gastrointestinal (Abdomen): normal bowel sounds, soft, nontender, no hepatosplenomegaly Musculoskeletal: Head/Neck/Chest: normocephalic and head atraumatic Neurologic: PERRL, EOMI, accommodation nl, no face palsy, no dysarthria CN's II-XI intact bilaterally Psychiatric: A+Ox3, euthymic affect Results & Data Vital Signs (Past 12 Hours) Vital Signs Temp Pulse Pulse Resp BP BP Pulse Ox 07/06/19 11:43 36.5 C 66 18 166/71 H 97 07/06/19 08:00 66 07/06/19 07:24 36.4 C L 70 18 160/79 H 98 07/06/19 04:30 36.5 C 69 17 126/73 95 (1) Pulmonary emboli Acute cor pulmonale presence: unspecified Chronicity: unspecified Pulmonary embolism type: unspecified Qualified Code(s): I26.99 - Other pulmonary embolism without acute cor pulmonale
--- NOTE | 2019-07-06 13:17 | Discharge Summary ---
Date of Service July 06, 2019 Admission HPI Per Admitting Provider Pt is 78 y/o F with PMH HTN, HLD, diet controlled DM II, GERD, H/O kidney stones presented to ER with complaint of shortness of breath x 3 days. Reports shortness of breath with exertion. Denies chest pain, dizziness, syncope. Saw PCP yesterday and had labs and chest x-ray, unsure of results. Reports he was given guaifenesin with codeine and took 1 dose without relief. Denies recent injury/trauma, travel, recent surgery or immobilization. Denies history DVT/PE in the past and denies family history of clotting disorder. Denies fever/chills, diaphoresis, N/V/D/C, CHACKO, vision changes, neck pain, orthopnea, palpitations, cough, hemoptysis, sore throat, choking, otalgia, rhinorrhea, abdominal pain, paresthesias, weakness, extremity weakness, extremity pain, extremity edema, rashes, urinary symptoms. Admission Exam Per Admitting Provider General: no acute distress, WDWN Head: normocephalic, atraumatic Eyes: PERRL, EOM's intact, conjunctiva non-injected, anicteric ENT: normal inspection external ears, nose, mucous membranes moist Neck: supple, trachea midline, non-tender Lungs: clear, +SOB with speaking several sentences, no wheezing/rhonchi/rales CV: RRR, no murmur, no JVD, no pretibial edema Abd: normal BS, soft, non-tender Ext: no cyanosis, no erythema, no calf tenderness Neuro: A&O x 3, no focal deficits noted, normal affect Skin: warm, dry Principal Diagnosis Acute bilateral Pulmonary embolism with Acute Cor Pulmonale, Acute left lower extremity Deep Vein thrombosis, Acute hypoxemic respiratory failure Secondary to acute Pulmonary embolism, Elevated troponin, Hypertension, Prediabetes Discharge Exam Constitutional comfortable Eyes PERRL, conjunctivae normal, anicteric sclerae EOM intact bilaterally ENMT external ear and nose normal, oropharynx normal Neck normal visual inspection Respiratory normal respiratory effort, lungs clear to auscultation Cardiovascular Rate/Rhythm: regular rate and regular rhythm Gastrointestinal (Abdomen) normal bowel sounds, soft, nontender, no hepatosplenomegaly Musculoskeletal Head/Neck/Chest: normocephalic and head atraumatic Neurologic PERRL, EOMI, accommodation nl, no face palsy, no dysarthria CN's II-XI intact bilaterally Psychiatric A+Ox3, euthymic affect Discharge Data Allergies Allergy/AdvReac Type Severity Reaction Status Date / Time Penicillins Allergy Intermediate RASH ALL Verified 07/03/19 12:36 OVER BODY amoxicillin Allergy Unknown HIVES Verified 07/03/19 12:36 Consultations 07/03/19 13:12 ED Decision to Admit Stat 07/03/19 14:52 Consult Case Management - Discharge Planning Routine Consult Pulmonology Routine Ordered Studies 07/03/19 11:47 CT angio chest PE protocol Stat 07/03/19 14:52 US venous doppler LE BI Routine Hospital Course (1) Pulmonary emboli: Acute bilateral Pulmonary embolism with Acute Cor Pulmonale Acute left lower extremity Deep Vein thrombosis -Pt is 78 y/o F with PMH HTN, HLD, diet controlled DM II, GERD, H/O kidney stones presented to ER with C/O SOB with exertion x 3 days. Denies CP, fever/chills, cough, recent immobilization, travel or surgery. Denies h/o DVT/PE or FH clotting disorder. -07/03/2019 CTA: Moderately extensive acute bilateral embolism, with evidence of mild secondary right ventricular strain -07/03/2019 ultrasound: Acute left lower extremity DVT involving the distal aspect of the superficial femoral vein, popliteal vein, and trifurcation veins of the calf. No evidence of right lower extremity DVT -admitted with unprovoked DVT and PE with significant clot burden and right heart strain based on CT scan and elevated biomarkers -was started on heparin IV on admission, and under Intensive Care Unit for because of tachypnea and also because she was given TPA thrombolysis -patient was continued to be monitored in the ICU on 07/04/2019 and plans to trasnfer out of ICU on 07/05/2019 -continue heparin IV for now, currently the discussion between patient and case management is about transitioning to which oral anticoagulation based on efficacy and potential financial costs to the patient. -07/06/2019 discharge medication of Eliquis (Apixaban) sent electronically to [facility] [address] [place] [address]. Eliquis was started on 07/05/2019 in the hospital. Dosing instructions for Eliquis is 10 mg twice daily for 7 days followed by 5 mg twice daily Because this is an unprovoked pulmonary embolism/deep vein thrombosis patient will need more than 3 months of anticoagulation and may need lifelong anticoagulation. Factor 2 (Promthrombin) mutation test and Factor V Leiden mutation test drawn on 07/03/2019 results are pending and patient's family doctor should follow up the results. 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 No dysuria symptoms Management of pre-diabetes as per primary care doctor Patient may call [facility] [phone] Abdiel Dia, hospitalist if any questions about discharge medications (2) SOB (shortness of breath): Acute hypoxemic respiratory failure Secondary to acute Pulmonary embolism -breathing improved after TPA thrombolysis -on room air now (3) Elevated troponin: -elevated Troponins on admission 0.052, 0.065, 0.051 -likely due to cardiac strain from pulmonary embolism -echocardiogram with normal left ventricular function -on anticoagulation for pulmonary embolism and deep vein thrombosis (4) Hypertension: -resumed lisinopril 10 mg daily on 07/06/2019, management as above to stop any diltiazem on discharge until follow up with primary care doctor (5) Asymptomatic bacteriuria: -UA: 2+leuk esterase, 10-30 WBC, 2+bacteria -Denies hematuria, dysuria, urinary frequency, urgency, back pain, flank pain -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 Diet controlled Random glucose in ER was 110 -Diabetic diet and sliding scale insulin while inpatient -Management of pre-diabetes as per primary care doctor -Novolog sliding scale per protocol if needed (7) GERD (gastroesophageal reflux disease): -Continue PPI Discharge Diagnosis: Acute bilateral Pulmonary embolism with Acute Cor Pulmonale, Acute left lower extremity Deep Vein thrombosis, Acute hypoxemic respiratory failure Secondary to acute Pulmonary embolism, Elevated troponin, Hypertension, Prediabetes Total Time Total Time Spent Total Time Spent (In Minutes): 40 minutes Total Time Includes: Examination of the Patient, Discharge Planning, Medication Reconciliation and Communication With Other Providers Discharge Plan Discharge Items Patient Disposition: Home - Self-Care Reason For Visit: PE Discharge Diagnosis: Acute bilateral Pulmonary embolism with Acute Cor Pulmonale, Acute left lower extremity Deep Vein thrombosis, Acute hypoxemic respiratory failure Secondary to acute Pulmonary embolism, Elevated troponin, Hypertension, Prediabetes Condition on Discharge: Good Activity: Per Instructions section Non-emergency contact: Primary Care Provider Call non-emergency contact if: you have any medication questions Follow-up/Referrals: Lamont Mckeon [Primary Care Provider] - Diet: Carb Consistent or DM2 Addtl Attending Provider Instructions: discharge medication of Eliquis (Apixaban) sent electronically to [facility] [address] [place] [address]. Eliquis was started on 07/05/2019 in the hospital. Dosing instructions for Eliquis is 10 mg twice daily for 7 days followed by 5 mg twice daily Because this is an unprovoked pulmonary embolism/deep vein thrombosis patient will need more than 3 months of anticoagulation and may need lifelong anticoagulation. Factor 2 (Promthrombin) mutation test and Factor V Leiden mutation test drawn on 07/03/2019 results are pending and patient's family doctor should follow up the results. 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 No dysuria symptoms Management of pre-diabetes as per primary care doctor Patient may call [facility] [phone] Abdiel Dia, hospitalist if any questions about discharge medications Pending Studies at Discharge: Yes Studies:: Factor 2 (Promthrombin) mutation test and Factor V Leiden mutation test drawn on 07/03/2019 results are pending and patient's family doctor should follow up the results Stand-Alone Forms: My [facility], Smoking Cessation Medications and DC Order Prescriptions: New Eliquis 5 mg (74 tabs) tablets,dose pack 10 mg PO UD 30 Days Qty: 74 RF: 0 Continued multivitamin Tablet 1 tab PO QAM Qty: 0 RF: 0 cyanocobalamin (vitamin B-12) 1,000 mcg Tablet 1,000 mcg PO QAM Qty: 0 RF: 0 cholecalciferol (vitamin D3) 1,000 unit (25 mcg) Tablet 1,000 unit PO QAM Qty: 0 RF: 0 lisinopril 10 mg Tablet 10 mg PO QAM Qty: 0 RF: 0 omeprazole 20 mg Tablet,Delayed Release (Dr/Ec) 20 mg PO HS Qty: 0 RF: 0 raloxifene 60 mg tablet 60 mg PO QPM RF: 0 codeine-guaifenesin 10-100 mg/5 mL liquid 5 ml PO UD PRN (Reason: Cough) RF: 0 Discontinued acetaminophen [Tylenol Extra Strength] 500 mg Tablet 1,000 mg PO Q4H PRN (Reason: Pain) Qty: 0 RF: 0 diphenhydramine HCl [Benadryl] 25 mg Capsule 25 mg PO QAM Qty: 0 RF: 0 diltiazem HCl [DILT-XR] 240 mg capsule,ext.rel 24h degradable 240 mg PO QPM RF: 0 aspirin 81 mg Tablet,Delayed Release (Dr/Ec) 81 mg PO HS Qty: 0 RF: 0 Discharge Orders: Discharge Order (Routine); Ordered 07/06/19 Ordered By: Abdiel Cardoso/Other Patient Handouts: DVT, DVT Tx, DVT Dc, Embolism Pulmonary Dc, Apixaban Oral tablet Admission Data Admit Date/Time: 07/03/19 13:47 Attending Provider: Abdiel Dia Admit Provider: Louie Montiel Primary Care Provider: Lamont Mckeon Other Providers: Louie Montiel ; Mike Zaragoza Other Interventions: Discharge Summary Assessment (RN) Last Done: 07/06/19 13:07
== END 2019-07-06 14:55 | disposition home or self-care (01) | DRG 175 ==
LOC: ED 11:09 → 2N 14:28 → SUATTDRO 14:45 → 1E 19:12 → 2S 07-05 09:14

== ENCOUNTER 2020-12-26 12:51 | Inpatient (IN) ==
[2020-12-26] MEDS ORDERED: ACETAMINOPHEN 1,000 MG/100 ML VIAL IV STA (13:31)
[2020-12-26] MEDS ORDERED: SODIUM CHLORIDE 0.9% 500 ML IV ONE (13:31)
[2020-12-26 14:03] LABS: Basophils # (auto) 0.03 K/uL (0-0.2); Basophils % (auto) 0.4 %; Eosinophils # (auto) 0.03 K/uL (0-0.5); Eosinophils % (auto) 0.4 %; Immature Granulocytes # (auto) 0.01 K/uL (0.00-0.02); Immature Granulocytes % (auto) 0.1 %; Lymphocytes # (auto) 2.01 K/uL (1.2-3.4); Lymphocytes % (auto) 24.5 %; Mean Corpuscular Hemoglobin 30.2 pg (25-34); Mean Corpuscular Hgb Conc 33.3 g/dL (32-36); Mean Corpuscular Volume 90.7 fL (80-100); Mean Platelet Volume 10.3 fL (7.4-10.4); Monocytes # (auto) 0.91 K/uL (0.11-0.59); Monocytes % (auto) 11.1 %; Neutrophils # (auto) 5.22 K/uL (1.4-6.5); Neutrophils % (auto) 63.5 %; Platelet Count 250 K/uL (130-400); RDW Coefficient of Variation 13.6 % (11.5-14.5); RDW Standard Deviation 44.4 fL (36.4-46.3); White Blood Count 8.21 K/uL (4.8-10.8)
[2020-12-26 14:21] LABS: Albumin Level 3.8 gm/dl (3.4-5.0); BUN Creatinine Ratio 19.3 (10-20); Calcium 9.7 mg/dl (8.5-10.1); Creatinine Clr Calc Pharmacy 41.5 ml/min; Est GFR (Non-African American) 51.8 ml/min; Potassium 4.2 mmol/L (3.5-5.1)
[2020-12-26 14:23] LABS: Albumin Globulin Ratio 0.9 (0.9-2); Bilirubin,Total 0.8 mg/dl (0.2-1); Globulin 4.4 gm/dl (2.5-4.0); Total Protein 8.2 gm/dl (6.4-8.2)
[2020-12-26 14:41] LABS: Appearance Urine Cloudy (Clear); Bacteria Urine Automated 1+ (Negative); Bilirubin Urine Negative (Negative); Blood Urine 1+ (Negative); Color Urine Yellow; Glucose Urine UA Negative (Negative); Ketones Urine Negative (Negative); Leukocyte Esterase Urine 3+ (Negative); Nitrite Urine Negative (Negative); Protein Urine Negative (Negative); RBC Urine Automated 0-4 /hpf (0-4); Specific Gravity Urine 1.005 (1.000-1.030); Urobilinogen Urine Negative (Negative); WBC Urine Automated >30 /hpf (0-5)
[2020-12-26] MEDS ORDERED: OPTIRAY 320 100ml IV ONE (14:44)
--- NOTE | 2020-12-26 15:35 | CT Scan Report ---
ABDOMEN AND PELVIS CT WITH IV CONTRAST CT DOSE: 877.15 mGy.cm HISTORY: left flank pain TECHNIQUE: Multiaxial CT images of the abdomen and pelvis were performed following the use of intrave nous contrast. A dose lowering technique was utilized adhering to the principles of ALARA. COMPARISON STUDY: Abdomen and pelvis CT 07/13/2019. FINDINGS: Mild dependent changes at the lung bases. No suspicious lytic or blastic osseous lesions. P osterior decompression within the lower lumbar spine. Cholecystectomy. The main portal vein is patent . The pancreas, spleen, and adrenal glands unremarkable. Stable 1.2 cm hypodense lesion within the ri ght hepatic lobe. This favors a cyst. Stable 1.4 cm solid enhancing lesion within the right kidney on image 158. A few additional bilateral renal cysts remain unchanged. There are punctate bilateral robert al calculi, left greater than right. Multifocal scarring within the left kidney is again noted. There is moderate to severe left-sided hydroureteronephrosis secondary to an obstructing 3 mm stone at the left ureterovesical junction. There are also 2 adjacent 3 mm stones within the distal left ureter on image 381. These are nonobstructing. There is a single mildly enlarged retroperitoneal lymph node on image 185 which has increased in size. This measures 1.4 cm. The uterus is surgically absent. Coloni c diverticulosis. No evidence for acute diverticulitis. No bowel wall thickening or obstruction. Norm al appendix. Normal caliber abdominal aorta. IMPRESSION: 1. Moderate to severe left-sided hydronephrosis secondary to an obstructing 3 mm stone at the left ur eterovesical junction. There are few additional punctate nonobstructing stones within the distal left ureter. 2. Bilateral nephrolithiasis. 3. No change in 1.4 cm solid renal lesion within the right kidney. This is consistent with a small re nal cell carcinoma. 4. A single mildly enlarged retroperitoneal lymph node measuring 1.4 cm. This has slightly increased in size compared to the prior study. Six-month follow-up recommended to ensure stability/resolution. ACT 112: Negative or not required by law. Electronically signed by: Rohit Valdivia M.D. 12/26/2020 3:34 PM
[2020-12-26] MEDS ORDERED: TAMSULOSIN HCL 0.4 MG CAP PO ONE (16:43)
[2020-12-26] MEDS ORDERED: cefTRIAXone SODIUM 2,000 MG/70 ML BAG IV STA (16:43)
[2020-12-26] MEDS ORDERED: ONDANSETRON INJ 2 MG/ML 2 ML VIAL IV PRN (18:06)
[2020-12-26] MEDS ORDERED: MoRPHine SULFATE 4 MG/ML 1 ML CARP\\VIAL IV PRN (19:16)
--- NOTE | 2020-12-26 19:59 | Emergency Department Note ---
Impression & Plan Acute UTI, Calculus of ureterovesical junction (UVJ), Acute left flank pain ED Provider Note NAME: JENNA BARBER AGE: 80 SEX: F ARRIVES VIA: Walk-In INFORMANT: Patient, ED PROVIDER(S): Pepe Aguilar MD CHIEF COMPLAINT: Left flank pain. Fevers. PLAN: Disposition: Admit MEDICAL DECISION MAKING: The patient is a pleasant 80-year-old woman with a past medical history of kidney stones, hypertension, hyperlipidemia, cor pulmonale, lumbar stenosis, type 2 diabetes who presents emerge department with left flank/lower abdominal pain that began yesterday with fevers to 101 yesterday. She reports she has been moving her bowels frequently but denies diarrhea, nausea/vomiting, cough, congestion, chest pain, shortness of breath. She denies any blood in her urine. She denies any burning with urination. On arrival the patient is in no acute distress, afebrile with stable vital signs. On exam she has mild left lower quadrant tenderness without guarding or rebound. WBC, H/H and platelets within normal limits. Chemistry without metabolic acidosis. Lactic acid, 1.5, within normal limits. LFTs are unremarkable. Lipase is not elevated. UA is consistent with infection with WBCs, leukocyte esterase and 1+ bacteria with minimal epithelial cells. COVID-[address] of the abdomen pelvis demonstrates moderate to severe left-sided hydronephrosis secondary to an obstructing 3 mm UV J stone. Note is made of st able 1.4 cm right renal lesion suspicious for small renal cell carcinoma. Review of patient's prior urine cultures does show E. coli which showed sensitivity to ceftriaxone and so this was ordered. Reevaluation the patient reported some mild improvement after IV fluid hydration and IV APAP. Given the patient's renal stone in the setting of UTI reasonable admit the patient for further management. The patient is in agreement with this. Given the patient is afebrile without leukocytosis and nontoxic appearing, no indication for emergent intervention. Case was discussed with Marcelo Barone with [facility] Vu hospitalist, who admit the patient for further management. Per admitting team request, I did review the patient's case with urology on-call, Dr. Lucero, who will be available for inpatient team consultation and for any acute clinical worsening if occurs. Triage Nursing notes reviewed and agree them. Prior medical records reviewed Vital Signs: reviewed and remarkable for no significant abnormalities Differential diagnosis: Renal colic, UTI, appendicitis, diverticulitis, mesenteric ischemia, aortic pathology, infections, inflammatory bowel disease, PUD, biliary pathology, as well as other pathologies. ER treatment provided: See below. Diagnostics interpreted by me: Cardiac Monitoring: An order for continuous cardiac monitoring was placed and demonstrated normal sinus rhythm, 78 bpm, no ectopy. Laboratory studies: See below Imaging studies: See below Consultation(s): Marcelo Barone with Dr. Simms, [facility] hospitalist Dr. Lucero, urology on-call. HPI: The patient is a pleasant 80-year-old woman with a past medical history of kidney stones, hypertension, hyperlipidemia, cor pulmonale, lumbar stenosis, type 2 diabetes who presents emerge department with left flank/lower abdominal pain that began yesterday with fevers to 101 yesterday. She reports she has been moving her bowels frequently but denies diarrhea, nausea/vomiting, cough, congestion, chest pain, shortness of breath. She denies any blood in her urine. She denies any burning with urination. ROS: See above HPI for pertinent positives & negatives. A total of 10 systems reviewed and were otherwise negative. PAST MEDICAL HISTORY:See Below PAST SURGICAL HISTORY:See Below FAMILY HISTORY:See Below SOCIAL HISTORY:See Below HOME MEDICATIONS:See Below ALLERGIES:See Below VITALS:See Below PHYSICAL EXAMINATION: GENERAL: Awake, alert, uncomfortable-appearing, in no distress HENT: Normocephalic, atraumatic. Oropharynx with dry mucous membranes and otherwise unremarkable. EYES: Normal conjunctiva. Sclera non-icteric. NECK: Supple. No nuchal rigidity. FROM. No JVD. RESPIRATORY: Clear to auscultation. CARDIAC: Regular rate, normal rhythm. Extremities warm and well perfused. Pulses equal. ABDOMEN: Soft, non-distended. Mild LLQ tenderness to palpation. No rebound or guarding. No masses. RECTAL: Deferred. MUSCULOSKELETAL: Chest examination reveals no tenderness. The back is symmetrical on inspection without obvious abnormality. There is no CVA tenderness to palpation. No joint edema. LOWER EXTREMITIES: Calves are equal size bilaterally and non-tender. No edema. No discoloration. NEURO: Normal sensorium. No sensory or motor deficits noted. SKIN: No rash or jaundice noted. Pepe Aguilar MD Past Med/Surg History Medical History Barretts esophagus Chronic lower back pain Diverticular disease GERD (gastroesophageal reflux disease) Hyperlipidemia Hypertension Kidney stone Lumbar spinal stenosis (03/28/14) Osteoarthritis Osteoporosis Prediabetes Surgical History H/O cystoscopy cysto with stent placement 02/05/19 under [facility] H/O: section H/O: hysterectomy History of colonoscopy w/ polypectomy History of esophagogastroduodenoscopy (EGD) History of lumbar fusion lumbar History of nephrolithotomy with removal of calculi Hx of cholecystectomy Family History Brother Esophageal cancer Mother Leukemia Sister Nephrolithiasis Son Nephrolithiasis Other Cancer Diabetes Heart disease Hypertension Social History Smoking Status: Never smoker Second Hand Exposure: No; Hx Alcohol Use: No Hx Substance Use: No Preferred Language: Yakut Communication Ability: Effective 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: No Beliefs That Will Affect Care: None marital status: Current Living Situation: Alone current occupational status: retired Feels Safe at Home: Yes Assistive Devices: None Allergies Allergies Allergy/AdvReac Type Severity Reaction Status Date / Time Penicillins Allergy Intermediate RASH ALL Verified 12/26/20 16:19 OVER BODY amoxicillin Allergy Unknown HIVES Verified 12/26/20 16:19 Home Meds Home Medications Medication Instructions Recorded Confirmed multivitamin 1 tab PO QAM #0 09/25/11 12/26/20 cholecalciferol (vitamin D3) 25 1,000 unit PO QAM #0 03/05/14 12/26/20 mcg (1,000 unit) tablet cyanocobalamin (vitamin B-12) 1,000 mcg PO QAM #0 tab 03/05/14 12/26/20 1,000 mcg tablet lisinopril 10 mg tablet 10 mg PO QAM #0 tab 01/25/16 12/26/20 omeprazole 20 mg tablet,delayed 20 mg PO HS #0 cap 01/25/16 12/26/20 release apixaban 5 mg tablet (Eliquis) 5 mg PO BID 12/26/20 12/26/20 atorvastatin 10 mg tablet 10 mg PO HS 12/26/20 12/26/20 cholestyramine (with sugar) 4 gram 1 ea PO QAM 12/26/20 12/26/20 powder for susp in a packet diphenhydramine HCl 25 mg tablet 25 mg PO HS 12/26/20 12/26/20 (Benadryl Allergy) fluocinonide 0.05 % topical 1 applic TOPICAL QID 12/26/20 12/26/20 ointment levothyroxine 25 mcg tablet 25 mcg PO DAILYBB 12/26/20 12/26/20 ropinirole 1 mg tablet 1 mg PO PM 12/26/20 12/26/20 Results & Data (ED) Vital Signs Vital Signs - 24 hr 12/26/20 12:54 12/26/20 14:00 12/26/20 14:30 Temperature 37.4 C Temperature Source Temporal Artery Scan Pulse Rate 83 79 76 Pulse Rate from SpO2 Sensor Respiratory Rate 20 21 28 H Respiratory Effort / Characteristics Non-Labored Spontaneous Respiratory Depth Normal Respiratory Pattern Regular Blood Pressure 148/72 H 145/70 H 126/52 L Blood Pressure Mean 97 95 76 Blood Pressure Position Sitting Pulse Oximetry 97 Oxygen Delivery Method Room Air Sepsis Recent Fever Within 48 Hours Yes Sepsis New/Unexplained Change in Mental Status No Sepsis Action Taken by Nursing No Action Required 12/26/20 15:00 12/26/20 15:30 12/26/20 16:00 Temperature Temperature Source Pulse Rate 79 75 78 Pulse Rate from SpO2 Sensor 70 76 78 Respiratory Rate 22 26 H 22 Respiratory Effort / Characteristics Respiratory Depth Respiratory Pattern Blood Pressure 135/70 137/67 128/66 Blood Pressure Mean 91 90 86 Blood Pressure Position Pulse Oximetry 95 95 95 Oxygen Delivery Method Sepsis Recent Fever Within 48 Hours Sepsis New/Unexplained Change in Mental Status Sepsis Action Taken by Nursing 12/26/20 17:00 Temperature Temperature Source Pulse Rate 75 Pulse Rate from SpO2 Sensor 74 Respiratory Rate 21 Respiratory Effort / Characteristics Respiratory Depth Respiratory Pattern Blood Pressure 138/65 Blood Pressure Mean 89 Blood Pressure Position Pulse Oximetry 95 Oxygen Delivery Method Sepsis Recent Fever Within 48 Hours Sepsis New/Unexplained Change in Mental Status Sepsis Action Taken by Nursing Laboratory Data Attestation: I reviewed the patient's lab results. Result diagrams: 12/26/20 14:00 12/26/20 14:00 Lab Results 12/26/20 12/26/20 12/26/20 Range/Units 13:40 13:40 13:40 WBC (4.8-10.8) K/uL RBC (4.2-5.4) M/uL Hgb (12.0-16.0) g/dL Hct (37-47) % MCV (80-100) fL MCH (25-34) pg MCHC (32-36) g/dL RDW Std Deviation (36.4-46.3) fL RDW Coeff of Taz (11.5-14.5) % Plt Count (130-400) K/uL MPV (7.4-10.4) fL Immature Gran % (Auto) % Neut % (Auto) % Lymph % (Auto) % Rusk % (Auto) % Eos % (Auto) % Baso % (Auto) % Neut # (Auto) (1.4-6.5) K/uL Lymph # (Auto) (1.2-3.4) K/uL Rusk # (Auto) (0.11-0.59) K/uL Eos # (Auto) (0-0.5) K/uL Baso # (Auto) (0-0.2) K/uL Immature Gran # (Auto) (0.00-0.02) K/uL Sodium (136-145) mmol/L Potassium (3.5-5.1) mmol/L Chloride (98-107) mmol/L Carbon Dioxide (21-32) mmol/L Anion Gap (3-11) BUN (7-18) mg/dl Creatinine (0.6-1.2) mg/dl Est Cr Clr Drug Dosing ml/min Est GFR ( Amer) ml/min Est GFR (Non-Af Amer) ml/min BUN/Creatinine Ratio (10-20) Glucose (70-99) mg/dl Calcium (8.5-10.1) mg/dl Total Bilirubin (0.2-1) mg/dl AST (15-37) U/L ALT (12-78) U/L Alkaline Phosphatase (45-117) U/L Total Protein (6.4-8.2) gm/dl Albumin (3.4-5.0) gm/dl Globulin (2.5-4.0) gm/dl Albumin/Globulin Ratio (0.9-2) Lipase (73-393) U/L Urine Color Yellow Urine Appearance Cloudy A (Clear) Urine pH 6.0 (4.5-7.5) Ur Specific Labelle 1.005 (1.000-1.030) Urine Protein Negative (Negative) Urine Glucose (UA) Negative (Negative) Urine Ketones Negative (Negative) Urine Blood 1+ H (Negative) Urine Nitrite Negative (Negative) Urine Bilirubin Negative (Negative) Urine Urobilinogen Negative (Negative) Ur Leukocyte Esterase 3+ H (Negative) Urine WBC (Auto) >30 H (0-5) /hpf Urine RBC (Auto) 0-4 (0-4) /hpf U Hyaline Cast (Auto) 1-5 (0-5) /lpf U Epithel Cells (Auto) 5-10 H (0-5) /lpf Urine Bacteria (Auto) 1+ H (Negative) COVID-19 Eval Order Covid19 at [facility] SARS-CoV-2 (PCR) NEGATIVE (Negative) 12/26/20 12/26/20 Range/Units 14:00 14:00 WBC 8.21 (4.8-10.8) K/uL RBC 4.30 (4.2-5.4) M/uL Hgb 13.0 (12.0-16.0) g/dL Hct 39.0 (37-47) % MCV 90.7 (80-100) fL MCH 30.2 (25-34) pg MCHC 33.3 (32-36) g/dL RDW Std Deviation 44.4 (36.4-46.3) fL RDW Coeff of Taz 13.6 (11.5-14.5) % Plt Count 250 (130-400) K/uL MPV 10.3 (7.4-10.4) fL Immature Gran % (Auto) 0.1 % Neut % (Auto) 63.5 % Lymph % (Auto) 24.5 % Rusk % (Auto) 11.1 % Eos % (Auto) 0.4 % Baso % (Auto) 0.4 % Neut # (Auto) 5.22 (1.4-6.5) K/uL Lymph # (Auto) 2.01 (1.2-3.4) K/uL Rusk # (Auto) 0.91 H (0.11-0.59) K/uL Eos # (Auto) 0.03 (0-0.5) K/uL Baso # (Auto) 0.03 (0-0.2) K/uL Immature Gran # (Auto) 0.01 (0.00-0.02) K/uL Sodium 136 (136-145) mmol/L Potassium 4.2 (3.5-5.1) mmol/L Chloride 105 (98-107) mmol/L Carbon Dioxide 24 (21-32) mmol/L Anion Gap 7.0 (3-11) BUN 20 H (7-18) mg/dl Creatinine 1.01 (0.6-1.2) mg/dl Est Cr Clr Drug Dosing 41.5 ml/min Est GFR ( Amer) 60.0 ml/min Est GFR (Non-Af Amer) 51.8 ml/min BUN/Creatinine Ratio 19.3 (10-20) Glucose 97 (70-99) mg/dl Calcium 9.7 (8.5-10.1) mg/dl Total Bilirubin 0.8 (0.2-1) mg/dl AST 32 (15-37) U/L ALT 41 (12-78) U/L Alkaline Phosphatase 56 (45-117) U/L Total Protein 8.2 (6.4-8.2) gm/dl Albumin 3.8 (3.4-5.0) gm/dl Globulin 4.4 H (2.5-4.0) gm/dl Albumin/Globulin Ratio 0.9 (0.9-2) Lipase 320 (73-393) U/L Urine Color Urine Appearance (Clear) Urine pH (4.5-7.5) Ur Specific Labelle (1.000-1.030) Urine Protein (Negative) Urine Glucose (UA) (Negative) Urine Ketones (Negative) Urine Blood (Negative) Urine Nitrite (Negative) Urine Bilirubin (Negative) Urine Urobilinogen (Negative) Ur Leukocyte Esterase (Negative) Urine WBC (Auto) (0-5) /hpf Urine RBC (Auto) (0-4) /hpf U Hyaline Cast (Auto) (0-5) /lpf U Epithel Cells (Auto) (0-5) /lpf Urine Bacteria (Auto) (Negative) COVID-19 Eval Order SARS-CoV-2 (PCR) (Negative) Administered Medications Discontinued Medications Sodium Chloride (Nss) 500 mls @ 999 mls/hr IV .Q31M ONE Stop: 12/26/20 14:01 Last Infusion: 12/26/20 14:34 Dose: 0 mls/hr Documented by: [id number] Admin: 12/26/20 14:00 Dose: 999 mls/hr Documented by: [id number] Acetaminophen (Ofirmev) 1,000 mg in 100 mls @ 400 mls/hr IV NOW STA Stop: 12/26/20 13:45 Last Infusion: 12/26/20 14:37 Dose: 0 mls/hr Documented by: [id number] Admin: 12/26/20 13:59 Dose: 400 mls/hr Documented by: [id number] Ceftriaxone Sodium (Rocephin) 2,000 mg in 70 mls @ 140 mls/hr IV NOW STA Stop: 12/26/20 17:12 Last Infusion: 12/26/20 18:20 Dose: 0 mls/hr Documented by: [id number] Admin: 12/26/20 17:39 Dose: 140 mls/hr Documented by: [id number] Ioversol (Optiray 320 100ml) 94 ml IV ONCE ONE Stop: 12/26/20 14:45 Last Admin: 12/26/20 14:44 Dose: 94 ml Documented by: [id number] Tamsulosin HCl (Tamsulosin Hcl 0.4 Mg Cap) 0.4 mg PO NOW ONE Stop: 12/26/20 16:44 Last Admin: 12/26/20 17:39 Dose: 0.4 mg Documented by: [id number] Imaging Data Radiologist's Impression: Abdomen/Pelvis CT 12/26/20 13:[address] WITH IV CONTRAST CT DOSE: 877.15 mGy.cm HISTORY: left flank pain TECHNIQUE: Multiaxial CT images of the abdomen and pelvis were performed following the use of intravenous contrast. A dose lowering technique was utilized adhering to the principles of ALARA. COMPARISON STUDY: Abdomen and pelvis CT 07/13/2019. FINDINGS: Mild dependent changes at the lung bases. No suspicious lytic or blastic osseous lesions. Posterior decompression within the lower lumbar spine. Cholecystectomy. The main portal vein is patent. The pancreas, spleen, and adrenal glands unremarkable. Stable 1.2 cm hypodense lesion within the right hepatic lobe. This favors a cyst. Stable 1.4 cm solid enhancing lesion within the right kidney on image 158. A few additional bilateral renal cysts remain unchanged. There are punctate bilateral renal calculi, left greater than right. Multifocal scarring within the left kidney is again noted. There is moderate to severe left-sided hydroureteronephrosis secondary to an obstructing 3 mm stone at the left ureterovesical junction. There are also 2 adjacent 3 mm stones within the distal left ureter on image 381. These are nonobstructing. There is a single mildly enlarged retroperitoneal lymph node on image 185 which has increased in size. This measures 1.4 cm. The uterus is surgically absent. Colonic diverticulosis. No evidence for acute diverticulitis. No bowel wall thickening or obstruction. Normal appendix. Normal caliber abdominal aorta. IMPRESSION: 1. Moderate to severe left-sided hydronephrosis secondary to an obstructing 3 mm stone at the left ureterovesical junction. There are few additional punctate nonobstructing stones within the distal left ureter. 2. Bilateral nephrolithiasis. 3. No change in 1.4 cm solid renal lesion within the right kidney. This is consistent with a small renal cell carcinoma. 4. A single mildly enlarged retroperitoneal lymph node measuring 1.4 cm. This has slightly increased in size compared to the prior study. Six-month follow-up recommended to ensure stability/resolution. ACT 112: Negative or not required by law. Electronically signed by: Rohit Valdivia M.D. 12/26/2020 3:34 PM Discharge Plan Visit Data Chief Complaint: Flank Pain Stated Complaint: HAD FEVER,L SIDE PAIN,H/O KIDNEY STONES ED Provider: Pepe Aguilar Discharge Problem: Acute UTI, Calculus of ureterovesical junction (UVJ), Acute left flank pain Patient Disposition: Admitted As Inpatient Discharge Instructions Interventions: ED Discharge Assessment Last Done: 12/26/20 18:37
[2020-12-26] MEDS: SODIUM CHLORIDE 0.9% 1000ML 1,000 ML IV SCH (20:22)
[2020-12-26] MEDS: ACETAMINOPHEN 325 MG TAB PO PRN (20:22)
--- NOTE | 2020-12-26 20:44 | History & Physical Report ---
Date of Service December 26, 2020 Assessment & Plan (1) Calculus of ureterovesical junction (UVJ): (2) Hydronephrosis: (3) Acute UTI: Plan: -Admit to [facility] -Patient presenting from home with reports of fever and left flank pain -In the ED, CT ABD/pelvis showed Moderate to severe left-sided hydronephrosis secondary to an obstructing 3 mm stone at the left ureterovesical junction -UA suggestive of UTI -Patient hemodynamically stable, no signs of sepsis, renal function stable -S/p IV ceftriaxone in the ED, continue with -Follow urine and blood cultures -N.p.o. after midnight -IVF, Flomax, pain and nausea control -Urology consult, case discussed with Dr. Lucero (4) History of pulmonary embolism: Plan: -Continue Eliquis (5) Hypertension: Plan: -BP controlled, hold lisinopril for now (6) Hypothyroidism: Plan: -Continue levothyroxine (7) DVT prophylaxis: Plan: -On Eliquis Admission and Anticipated Discharge Date Admission Date: December 26, 2020 History of Present Illness Chief Complaint: Fever, left flank pain Primary Care Provider: Lamont Mckeon 80-year-old female with PMH HTN, pulmonary embolism anticoagulated Eliquis, GERD, renal calculi, hypothyroidism, and other problems listed below who presents the ED for evaluation of fever and left flank pain. Patient reports a few days ago she developed intermittent fevers throughout the day. She was taking Tylenol with resolution of the fever. This morning, she developed left flank pain. Reports symptoms are similar to previous kidney stones in the past. Denies dysuria or hematuria. No abdominal pain, nausea, vomiting, diarrhea. Denies chest pain or shortness of breath. No lightheadedness, dizziness, diaphoresis, syncopal events. In the ED, CT ABD/pelvis shows Moderate to severe left-sided hydronephrosis secondary to an obstructing 3 mm stone at the left ureterovesical junction. UA suggest UTI. Patient is hemodynamically stable, afebrile, no leukocytosis. Patient was given IVF IV ceftriaxone, and p.o. Flomax. Allergies Allergy/AdvReac Type Severity Reaction Status Date / Time Penicillins Allergy Intermediate RASH ALL Verified 12/26/20 16:19 OVER BODY amoxicillin Allergy Unknown HIVES Verified 12/26/20 16:19 Home Medications Medication Instructions Recorded Confirmed Type multivitamin 1 tab PO QAM #0 09/25/11 12/26/20 History cholecalciferol (vitamin D3) 25 1,000 unit PO QAM #0 03/05/14 12/26/20 History mcg (1,000 unit) tablet cyanocobalamin (vitamin B-12) 1,000 mcg PO QAM #0 tab 03/05/14 12/26/20 History 1,000 mcg tablet lisinopril 10 mg tablet 10 mg PO QAM #0 tab 01/25/16 12/26/20 History omeprazole 20 mg tablet,delayed 20 mg PO HS #0 cap 01/25/16 12/26/20 History release apixaban 5 mg tablet (Eliquis) 5 mg PO BID 12/26/20 12/26/20 History atorvastatin 10 mg tablet 10 mg PO HS 12/26/20 12/26/20 History cholestyramine (with sugar) 4 gram 1 ea PO QAM 12/26/20 12/26/20 History powder for susp in a packet diphenhydramine HCl 25 mg tablet 25 mg PO HS 12/26/20 12/26/20 History (Benadryl Allergy) fluocinonide 0.05 % topical 1 applic TOPICAL QID 12/26/20 12/26/20 History ointment levothyroxine 25 mcg tablet 25 mcg PO DAILYBB 12/26/20 12/26/20 History ropinirole 1 mg tablet 1 mg PO PM 12/26/20 12/26/20 History tamsulosin 0.4 mg capsule 0.4 mg PO QAM #30 cap 12/28/20 Rx Past Med/Surg History Medical History (Updated 01/01/21 @ 15:33 by Ez Mckeon MD) Barretts esophagus Chronic lower back pain Diverticular disease GERD (gastroesophageal reflux disease) History of pulmonary embolism Hyperlipidemia Hypertension Hypothyroidism Kidney lesion Kidney stone Lumbar spinal stenosis (03/28/14) Osteoarthritis Osteoporosis Prediabetes Surgical History H/O cystoscopy cysto with stent placement 02/05/19 under [facility] H/O: section H/O: hysterectomy History of colonoscopy w/ polypectomy History of esophagogastroduodenoscopy (EGD) History of lumbar fusion lumbar History of nephrolithotomy with removal of calculi Hx of cholecystectomy S/P cystoscopy with ureteral stent placement Status post laser lithotripsy of ureteral calculus Family History Brother Esophageal cancer Mother Leukemia Sister Nephrolithiasis Son Nephrolithiasis Other Cancer Diabetes Heart disease Hypertension Social History Smoking Status: Never smoker Second Hand Exposure: No; Hx Alcohol Use: No Hx Substance Use: No Preferred Language: Turkmen Communication Ability: Effective 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 Beliefs That Will Affect Care: None marital status: Current Living Situation: Spouse current occupational status: retired Feels Safe at Home: Yes Assistive Devices: None Review of Systems Review of Systems: ROS per HPI, all other systems reviewed and negative Physical Exam Constitutional: WD/WN, vitals as above Eyes: PERRL, conjunctivae normal, anicteric sclerae ENMT: external ear and nose normal, oropharynx normal Respiratory: normal respiratory effort, lungs clear to auscultation Cardiovascular: Rate/Rhythm: regular rate and regular rhythm Vessels: normal peripheral pulses Extremities: no edema Gastrointestinal (Abdomen): normal bowel sounds, soft, nontender, no hepatosplenomegaly Musculoskeletal: no cyanosis or clubbing, extremities motor strength 5/5 Skin: no rashes, warm and dry Neurologic: PERRL, EOMI, accommodation nl, no face palsy, no dysarthria Psychiatric: A+Ox3, euthymic affect Genitourinary: no CVA tenderness Results & Data Results & Data ([facility]) Vital Signs (Past 12 Hours) Vital Signs Temp Pulse Resp BP Pulse Ox 12/26/20 18:30 77 23 127/70 95 12/26/20 18:00 77 25 H 127/73 95 12/26/20 17:30 78 15 135/77 96 12/26/20 17:00 75 21 138/65 95 12/26/20 16:00 78 22 128/66 95 12/26/20 15:30 75 26 H 137/67 95 12/26/20 15:00 79 22 135/70 95 12/26/20 14:30 76 28 H 126/52 L 12/26/20 14:00 79 21 145/70 H 12/26/20 12:54 37.4 C 83 20 148/72 H 97 Laboratory Results Short CBC 12/26/20 Range/Units 14:00 WBC 8.21 (4.8-10.8) K/uL Hgb 13.0 (12.0-16.0) g/dL Hct 39.0 (37-47) % Plt Count 250 (130-400) K/uL BMP 12/26/20 14:00 Sodium 136 Potassium 4.2 Chloride 105 Carbon Dioxide 24 BUN 20 H Creatinine 1.01 Glucose 97 Calcium 9.7 Liver Function 12/26/20 Range/Units 14:00 Total Bilirubin 0.8 (0.2-1) mg/dl AST 32 (15-37) U/L ALT 41 (12-78) U/L Alkaline Phosphatase 56 (45-117) U/L Albumin 3.8 (3.4-5.0) gm/dl Urine 12/26/20 Range/Units 13:40 Urine Color Yellow Urine Appearance Cloudy A (Clear) Urine pH 6.0 (4.5-7.5) Ur Specific [place] 1.005 (1.000-1.030) Urine Protein Negative (Negative) Urine Glucose (UA) Negative (Negative) Diagnostic Findings Abdomen/Pelvis CT 12/26/20 13:[address] WITH IV CONTRAST CT DOSE: 877.15 mGy.cm HISTORY: left flank pain TECHNIQUE: Multiaxial CT images of the abdomen and pelvis were performed following the use of intravenous contrast. A dose lowering technique was utilized adhering to the principles of ALARA. COMPARISON STUDY: Abdomen and pelvis CT 07/13/2019. FINDINGS: Mild dependent changes at the lung bases. No suspicious lytic or blastic osseous lesions. Posterior decompression within the lower lumbar spine. Cholecystectomy. The main portal vein is patent. The pancreas, spleen, and adrenal glands unremarkable. Stable 1.2 cm hypodense lesion within the right h epatic lobe. This favors a cyst. Stable 1.4 cm solid enhancing lesion within the right kidney on image 158. A few additional bilateral renal cysts remain unchanged. There are punctate bilateral renal calculi, left greater than right. Multifocal scarring within the left kidney is again noted. There is moderate to severe left-sided hydroureteronephrosis secondary to an obstructing 3 mm stone at the left ureterovesical junction. There are also 2 adjacent 3 mm stones within the distal left ureter on image 381. These are nonobstructing. There is a single mildly enlarged retroperitoneal lymph node on image 185 which has increased in size. This measures 1.4 cm. The uterus is surgically absent. Colonic diverticulosis. No evidence for acute diverticulitis. No bowel wall thickening or obstruction. Normal appendix. Normal caliber abdominal aorta. IMPRESSION: 1. Moderate to severe left-sided hydronephrosis secondary to an obstructing 3 mm stone at the left ureterovesical junction. There are few additional punctate nonobstructing stones within the distal left ureter. 2. Bilateral nephrolithiasis. 3. No change in 1.4 cm solid renal lesion within the right kidney. This is consistent with a small renal cell carcinoma. 4. A single mildly enlarged retroperitoneal lymph node measuring 1.4 cm. This has slightly increased in size compared to the prior study. Six-month follow-up recommended to ensure stability/resolution. ACT 112: Negative or not required by law. Electronically signed by: Rohit Valdivia M.D. 12/26/2020 3:34 PM Code Status & VTE Plan Code Status Patient is a full code as per my discussion with her. VTE Prophylaxis Plan VTE Prophylaxis will be ordered: No Supervising Physician Co-Signing Physician Notes Pt was seen and examined. Agreed with Pamella SAMPSON exam, assessment and plan. 80-year-old female with PMH HTN, pulmonary embolism anticoagulated Eliquis, GERD, renal calculi, hypothyroidism presented the ED for evaluation of fever and left flank pain. Pt said that she has been having intermittent fever that has been relief with Tylenol. She said that today she woke up with left flank pain. Denies dysuria or hematuria, abdominal pain, nausea, vomiting, diarrhea, chest pain or shortness of breath. In the ED, CT ABD/pelvis shows Moderate to severe left-sided hydronephrosis secondary to an obstructing 3 mm stone at the left ureterovesical junction. UA ion admission was positive for Leukocytes and bacteria that suggest UTI. Received IV Rocephin in the ER, will continue. Continue IVF and Flomax. Will consult urology. Follow up urine cx. Continue pain control. Will make NPO after midnight in case urology plan to take to OR in am. Continue monitor closely during the hospital course. MD Demi
[2020-12-26] MEDS: PANTOprazole 40 MG TAB PO SCH (21:38)
[2020-12-26] MEDS: APIXABAN 5 MG TABLET PO SCH (21:39)
[2020-12-26] MEDS: rOPINIRole HCL 1 MG TABLET PO SCH (21:39)
[2020-12-26] MEDS: ATORVASTATIN 10 MG TAB PO SCH (21:39)
--- NOTE | 2020-12-27 00:55 | Urology Consultation ---
Date of Consultation December 27, 2020 Assessment & Plan (1) Calculus of ureterovesical junction (UVJ): Distal L ureteral calculus - small stone, near the bladder - no clinical signs of systemic infection - attempt trial of passage, avoid intervention unless she begins to decompensate - if she remains in house overnight, I may check a KUB in the AM to determine if the stone is present/visible History of Present Illness Attending Physician: Logan Simms MD History of Present Illness 80y/o female admitted through the ER for left lower quadrant pain no objective fevers and chills after arrival UA with some rbc/wbc, nit negative - culture pending no significant leukocytosis CT - 2-3 mm stone at the left UVJ/within the intramural ureter with associated hydronephrosis Cr 1.0 (baseline) feels well this AM reports that she passed several small "granules" overnight still with mild left groin pain - but quite tolerable Allergies Allergy/AdvReac Type Severity Reaction Status Date / Time Penicillins Allergy Intermediate RASH ALL Verified 12/26/20 16:19 OVER BODY amoxicillin Allergy Unknown HIVES Verified 12/26/20 16:19 Home Medications Medication Instructions Recorded Confirmed Type multivitamin 1 tab PO QAM #0 09/25/11 12/26/20 History cholecalciferol (vitamin D3) 25 1,000 unit PO QAM #0 03/05/14 12/26/20 History mcg (1,000 unit) tablet cyanocobalamin (vitamin B-12) 1,000 mcg PO QAM #0 tab 03/05/14 12/26/20 History 1,000 mcg tablet lisinopril 10 mg tablet 10 mg PO QAM #0 tab 01/25/16 12/26/20 History omeprazole 20 mg tablet,delayed 20 mg PO HS #0 cap 01/25/16 12/26/20 History release apixaban 5 mg tablet (Eliquis) 5 mg PO BID 12/26/20 12/26/20 History atorvastatin 10 mg tablet 10 mg PO HS 12/26/20 12/26/20 History cholestyramine (with sugar) 4 gram 1 ea PO QAM 12/26/20 12/26/20 History powder for susp in a packet diphenhydramine HCl 25 mg tablet 25 mg PO HS 12/26/20 12/26/20 History (Benadryl Allergy) fluocinonide 0.05 % topical 1 applic TOPICAL QID 12/26/20 12/26/20 History ointment levothyroxine 25 mcg tablet 25 mcg PO DAILYBB 12/26/20 12/26/20 History ropinirole 1 mg tablet 1 mg PO PM 12/26/20 12/26/20 History Patient History Medical History (Updated 12/26/20 @ 20:41 by CAMILLA Caraballo) Barretts esophagus Chronic lower back pain Diverticular disease GERD (gastroesophageal reflux disease) History of pulmonary embolism Hyperlipidemia Hypertension Hypothyroidism Kidney stone Lumbar spinal stenosis (03/28/14) Osteoarthritis Osteoporosis Prediabetes Surgical History H/O cystoscopy cysto with stent placement 02/05/19 under [facility] H/O: section H/O: hysterectomy History of colonoscopy w/ polypectomy History of esophagogastroduodenoscopy (EGD) History of lumbar fusion lumbar History of nephrolithotomy with removal of calculi Hx of cholecystectomy S/P cystoscopy with ureteral stent placement Status post laser lithotripsy of ureteral calculus Family History Brother Esophageal cancer Mother Leukemia Sister Nephrolithiasis Son Nephrolithiasis Other Cancer Diabetes Heart disease Hypertension Social History Smoking Status: Never smoker Second Hand Exposure: No; Do You Dip or Chew Tobacco: No; Tobacco Cessation Education Requested by Patient: No Hx Alcohol Use: No Hx Substance Use: No Preferred Language: Afghan Communication Ability: Effective 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 Beliefs That Will Affect Care: None marital status: Current Living Situation: Spouse current occupational status: retired Other Information That Helps Us Care for You: No Feels Safe at Home: Yes Safety Concerns: Feels Safe At This Time Assistive Devices: None Review of Systems Constitutional: no fever, no chills and no fatigue Eyes: no worsening vision Ear, Nose, Mouth, Throat: no facial pain and no pain with swallowing Respiratory: no cough and no dyspnea Cardiovascular: no chest pain and no palpitations Gastrointestinal: + abdominal pain and + nausea; no vomiting Genitourinary: + urinary frequency; no dysuria, no difficulty urinating and no hematuria Musculoskeletal: no back pain Integumentary: no rash and no urticaria Neurologic: no gait abnormality and no unsteadiness Psychiatric: no behavioral changes and no depression Endocrine: no fatigue Physical Exam Constitutional: well developed and well nourished Neck: neck nontender Respiratory: normal respiratory effort; no respiratory distress and does not use accessory muscles Cardiovascular: Rate/Rhythm: regular rate Vessels: radial pulses present Extremities: no edema Gastrointestinal (Abdomen): Inspection/Auscultation: abdomen normal to inspection Percussion/Palpation: abdomen soft; abdomen nontender and no guarding Musculoskeletal: Head/Neck/Chest: normocephalic and head atraumatic Extremities: extremities normal to inspection Skin: no rashes and no lesions Trauma: no evidence of skin trauma Neurologic: awake; not obtunded Speech / Cognition: normal speech Motor/Sensory: no tremor Psychiatric: Orientation: alert and oriented x 3 Lymphatic: no lymphadenopathy Results & Data ([facility]) Vital Signs (Past 12 Hours) Vital Signs Temp Pulse Pulse Resp BP BP Pulse Ox 12/26/20 23:00 37.2 C 91 H 18 121/65 93 12/26/20 19:30 36.5 C 83 20 136/71 97 12/26/20 18:30 77 23 127/70 95 12/26/20 18:00 77 25 H 127/73 95 12/26/20 17:30 78 15 135/77 96 12/26/20 17:00 75 21 138/65 95 12/26/20 16:00 78 22 128/66 95 12/26/20 15:30 75 26 H 137/67 95 12/26/20 15:00 79 22 135/70 95 12/26/20 14:30 76 28 H 126/52 L 12/26/20 14:00 79 21 145/70 H 12/26/20 12:54 37.4 C 83 20 148/72 H 97 PG Care Time/CCT Total # of Minutes Spent Total Time Spent with Patient: Total time spent is greater than 50% in co ordination of care (as documented) at patient's floor/unit and/or counseling patient: Coding Level of Care Code 18266 Inpt Consult Level 4 Diagnoses Calculus of ureterovesical junction (UVJ) N20.1
[2020-12-27] MEDS: LEVOTHYROXINE SODIUM 25 MCG TABLET PO SCH (05:58)
[2020-12-27] MEDS: ACETAMINOPHEN 325 MG TAB PO PRN ×3 (07:29→21:38)
[2020-12-27] MEDS: CYANOCOBALAMIN 500 MCG TABLET (VITAMIN B-12) PO SCH (07:30)
[2020-12-27] MEDS: TAMSULOSIN HCL 0.4 MG CAP PO SCH (07:30)
[2020-12-27] MEDS: APIXABAN 5 MG TABLET PO SCH ×2 (07:30→21:38)
[2020-12-27] MEDS: CHOLECALCIFEROL 1,000 UNITS 25 MCG TAB PO SCH (07:30)
[2020-12-27 07:47] LABS: Hematocrit (blood only) 35.1 % (37-47); Hemoglobin 11.6 g/dL (12.0-16.0); Mean Corpuscular Hemoglobin 30.4 pg (25-34); Mean Corpuscular Volume 91.9 fL (80-100); Mean Platelet Volume 10.1 fL (7.4-10.4); Platelet Count 231 K/uL (130-400); RDW Coefficient of Variation 13.5 % (11.5-14.5); RDW Standard Deviation 45.9 fL (36.4-46.3); Red Blood Count 3.82 M/uL (4.2-5.4); White Blood Count 6.13 K/uL (4.8-10.8)
[2020-12-27 08:17] LABS: BUN Creatinine Ratio 14.8 (10-20); Calcium 8.5 mg/dl (8.5-10.1); Creatinine Clr Calc Pharmacy 42.8 ml/min; Est GFR (African American) 62.3 ml/min; Est GFR (Non-African American) 53.7 ml/min; Potassium 3.9 mmol/L (3.5-5.1)
[2020-12-27] MEDS: SODIUM CHLORIDE 0.9% 1000ML 1,000 ML IV SCH ×3 (09:27→21:55)
[2020-12-27] MEDS ORDERED: Nursing to Pharmacy Communication SCH (09:45)
--- NOTE | 2020-12-27 15:57 | Hospitalist Progress Note ---
Date of Service December 27, 2020 Assessment & Plan (1) Calculus of ureterovesical junction (UVJ): (2) Hydronephrosis: Plan: Presented on admission with left flank pain associated with fever CT ABD/pelvis on admission showed moderate to severe left-sided hydronephrosis secondary to an obstructing 3 mm stone at the left ureterovesical junction Urology on board Continue conservative management since stone is small, she might able to pass it Continue IVF hydration Pain control If symptoms continue, will plan to get a KUB in am to follow up the stone Continue Flomax Continue monitor closely (3) Acute UTI: Plan: UA positive for bacteria and leukocytes Urine cx positive for gram negative bacilli Currently on Rocephin IV Will follow urine sensitivity (4) History of pulmonary embolism: Plan: Continue Eliquis (5) Hypertension: Plan: BP controlled Continue to hold lisinopril Continue monitor BP (6) Hypothyroidism: Plan: -Continue levothyroxine (7) DVT prophylaxis: Plan: On Eliquis Admission and Anticipated Discharge Date Admission Date: December 26, 2020 Subjective Pt was seen and examined for follow up of left sided flank pain Lying in bed with no distress resting comfortable Pt said that she has some left side flank discomfort She said that the Tylenol helps with the pain Denies any chest pain, palpitation, dizziness and SOB Physical Exam Physical Exam: General- No acute distress Head- atraumatic Eyes- PERRL, EOMI, ENT- oropharynx clear Neck- supple, no JVD Lungs- clear to auscultation Heart- regular rhythm; no murmur Abdomen- normal bowel sounds, soft, nontender Extremities- no calf tenderness Neuro- alert, oriented x 3; PERRL, EOMI; no facial palsy; no dysarthria Skin- warm & dry Results & Data Results & Data ([facility]) Vital Signs (Past 12 Hours) Vital Signs Temp Pulse Resp BP BP Pulse Ox 12/27/20 15:33 36.8 C 89 20 126/69 96 12/27/20 12:08 36.8 C 83 20 121/70 97 12/27/20 08:07 37.0 C 79 20 107/53 L 95
[2020-12-27] MEDS ORDERED: cefTRIAXone SODIUM 1,000 MG in DEXTROSE 5% 50 ML IV SCH (16:00)
[2020-12-27] MEDS: PANTOprazole 40 MG TAB PO SCH (21:36)
[2020-12-27] MEDS: ATORVASTATIN 10 MG TAB PO SCH (21:37)
[2020-12-27] MEDS: rOPINIRole HCL 1 MG TABLET PO SCH (21:37)
[2020-12-28] MEDS: LEVOTHYROXINE SODIUM 25 MCG TABLET PO SCH (05:53)
[2020-12-28] MEDS: SODIUM CHLORIDE 0.9% 1000ML 1,000 ML IV SCH (05:58)
[2020-12-28] MEDS: ACETAMINOPHEN 325 MG TAB PO PRN (08:58)
[2020-12-28] MEDS: TAMSULOSIN HCL 0.4 MG CAP PO SCH (08:59)
[2020-12-28] MEDS: APIXABAN 5 MG TABLET PO SCH (08:59)
[2020-12-28] MEDS: CHOLECALCIFEROL 1,000 UNITS 25 MCG TAB PO SCH (08:59)
[2020-12-28] MEDS: CYANOCOBALAMIN 500 MCG TABLET (VITAMIN B-12) PO SCH (08:59)
--- NOTE | 2020-12-28 09:00 | Urology Progress Note ---
Date of Service December 28, 2020 Assessment & Plan (1) Calculus of ureterovesical junction (UVJ): Plan: small, distal ureteral calc with concurrent cystitis - KUB now to assess visibility of the stone - currently feels her symptoms are well controlled - despite pos culture, she has never manifested signs of systemic infection, implying simple cystitis rather than an ascending infection - if she continues to feel well, d/c home with oral abx for tentative outpt cary tment of her stone would be very reasonable - has a negative covid PCR on the chart which would allow us to tentatively treat her later this week (2) Acute UTI: Admission and Anticipated Discharge Date Admission Date: December 26, 2020 Subjective Feels well this AM - no pain, no nausea, no dysuria - reports that she had intense pain last night with associated dysuria - resolved with morphine and time - has not yet seen a stone pass - would like to go home - culture growing e.coli - no fevers/no chills/no signs of systemic infection Physical Exam Constitutional: well developed and well nourished Respiratory: no respiratory distress Cardiovascular: Extremities: no pedal edema Gastrointestinal (Abdomen): Inspection/Auscultation: abdomen normal to inspection Results & Data ([facility]) Vital Signs (Past 12 Hours) Vital Signs Temp Pulse Resp BP Pulse Ox 12/28/20 07:54 36.8 C 73 18 148/72 H 92 12/27/20 22:44 36.7 C 80 18 159/66 H 97 PG Care Time/CCT Total # of Minutes Spent Total Time Spent with Patient: Total time spent is greater than 50% in coordination of care (as documented) at patient's floor/unit and/or counseling patient: Coding Level of Care Code 35145 Subseq Hosp Care Lvl 2 Diagnoses Calculus of ureterovesical junction (UVJ) N20.1 Acute UTI N39.0
--- NOTE | 2020-12-28 09:17 | XRay Report ---
KUB CLINICAL HISTORY: Stone. COMPARISON STUDY: CT of the abdomen and pelvis December 26, 2020. FINDINGS: Numerous small left renal calculi are noted. Evaluation for distal left ureteral calculi sh own on prior CT is difficult given numerous phleboliths. Bowel gas pattern is normal. There are gavin cystectomy clips. IMPRESSION: 1. Left-sided nephrolithiasis. 2. Evaluation for distal left ureteral calculi on CT difficult given numerous phleboliths. It is diff icult to determine with certainty whether these calculi have passed. ACT 112: Negative or not required by law. Electronically signed by: Mariano Temple M.D. 12/28/2020 9:15 AM
--- NOTE | 2020-12-28 12:20 | Hospitalist Progress Note ---
Date of Service December 28, 2020 Assessment & Plan (1) Calculus of ureterovesical junction (UVJ): (2) Hydronephrosis: Plan: Presented on admission with left flank pain associated with fever CT ABD/pelvis on admission showed moderate to severe left-sided hydronephrosis secondary to an obstructing 3 mm stone at the left ureterovesical junction Urology on board Continue conservative management since stone is small, she might able to pass it KUB done this morning showed numerous small left renal calculi are noted. Evaluation for distal left ureteral calculi shown on prior CT is difficult given numerous phleboliths. Currently denies any pain Receive IVF hydration Continue Flomax Follow up with urology outpatient for the stone management Clinically improves significantly Ok from urology standpoint to discharge home (3) Acute UTI: Plan: UA positive for bacteria and leukocytes Urine cx positive for gram negative bacilli - Ecoli Currently on Rocephin IV, will transition to Keflex to complete the course of the abx (4) History of pulmonary embolism: Plan: Continue Eliquis (5) Hypertension: Plan: BP controlled Continue to hold lisinopril Continue monitor BP (6) Hypothyroidism: Plan: -Continue levothyroxine (7) DVT prophylaxis: Plan: On Eliquis Disposition Discharge home today Follow up with Urology outpatient Admission and Anticipated Discharge Date Admission Date: December 26, 2020 Subjective Pt was seen and examined for follow up of left sided flank pain Sitting in chair with no distress comfortable She said that she feels fine She said that she is not having any flank pain at all She would like to go home today Denies any chest pain, palpitation, dizziness and SOB Physical Exam Physical Exam: General- No acute distress Head- atraumatic Eyes- PERRL, EOMI, ENT- oropharynx clear Neck- supple, no JVD Lungs- clear to auscultation Heart- regular rhythm; no murmur Abdomen- normal bowel sounds, soft, nontender Extremities- no calf tenderness Neuro- alert, oriented x 3; PERRL, EOMI; no facial palsy; no dysarthria Skin- warm & dry Results & Data Results & Data ([facility]) Vital Signs (Past 12 Hours) Vital Signs Temp Pulse Resp BP Pulse Ox 12/28/20 07:54 36.8 C 73 18 148/72 H 92
[2020-12-28] MEDS ORDERED: cephALEXin 500 MG CAP PO SCH (13:00)
--- NOTE | 2021-01-06 15:23 | Discharge Summary ---
Date of Service January 06, 2021 Admission HPI Per Admitting Provider 80-year-old female with PMH HTN, pulmonary embolism anticoagulated Eliquis, GERD, renal calculi, hypothyroidism, and other problems listed below who presents the ED for evaluation of fever and left flank pain. Patient reports a few days ago she developed intermittent fevers throughout the day. She was taking Tylenol with resolution of the fever. This morning, she developed left flank pain. Reports symptoms are similar to previous kidney stones in the past. Denies dysuria or hematuria. No abdominal pain, nausea, vomiting, diarrhea. Denies chest pain or shortness of breath. No lightheadedness, dizziness, di aphoresis, syncopal events. In the ED, CT ABD/pelvis shows Moderate to severe left-sided hydronephrosis secondary to an obstructing 3 mm stone at the left ureterovesical junction. UA suggest UTI. Patient is hemodynamically stable, afebrile, no leukocytosis. Patient was given IVF IV ceftriaxone, and p.o. Flomax. Admission Exam Per Admitting Provider Constitutional: WD/WN, vitals as above Eyes: PERRL, conjunctivae normal, anicteric sclerae ENMT: external ear and nose normal, oropharynx normal Respiratory: normal respiratory effort, lungs clear to auscultation Cardiovascular: regular rate and regular rhythm Vessels: normal peripheral pulses Extremities: no edema Gastrointestinal: normal bowel sounds, soft, nontender, no hepatosplenomegaly Musculoskeletal:no cyanosis or clubbing, extremities motor strength 5/5 Skin: no rashes, warm and dry Neurologic: PERRL, EOMI, accommodation nl, no face palsy, no dysarthria Psychiatric: A+Ox3, euthymic affect Genitourinary: no CVA tenderness Principal Diagnosis (1) Calculus of ureterovesical junction (UVJ): (2) Hydronephrosis: (3) Acute UTI: (4) History of pulmonary embolism: (5) Hypertension: (6) Hypothyroidism: Discharge Exam General- No acute distress Head- atraumatic Eyes- PERRL, EOMI, ENT- oropharynx clear Neck- supple, no JVD Lungs- clear to auscultation Heart- regular rhythm; no murmur Abdomen- normal bowel sounds, soft, nontender Extremities- no calf tenderness Neuro- alert, oriented x 3; PERRL, EOMI; no facial palsy; no dysarthria Skin- warm & dry Discharge Data Allergies Allergy/AdvReac Type Severity Reaction Status Date / Time Penicillins Allergy Intermediate RASH ALL Verified 12/26/20 16:19 OVER BODY amoxicillin Allergy Unknown HIVES Verified 12/26/20 16:19 Consultations 12/26/20 16:45 ED Decision to Admit Stat 12/26/20 19:16 Consult Urology Routine Ordered Studies 12/26/20 13:29 CT abd pelvis IV con only Stat KUB CLINICAL HISTORY: Stone. COMPARISON STUDY: CT of the abdomen and pelvis December 26, 2020. FINDINGS: Numerous small left renal calculi are noted. Evaluation for distal left ureteral calculi shown on prior CT is difficult given numerous phleboliths. Bowel gas pattern is normal. There are cholecystectomy clips. IMPRESSION: 1. Left-sided nephrolithiasis. 2. Evaluation for distal left ureteral calculi on CT difficult given numerous phleboliths. It is difficult to determine with certainty whether these calculi have passed. ACT 112: Negative or not required by law. Electronically signed by: Mariano Temple M.D. 12/28/2020 9:15 AM Dictated: 12/28/20 0911Transcribed: 12/28/[address] WITH IV CONTRAST CT DOSE: 877.15 mGy.cm HISTORY: left flank pain TECHNIQUE: Multiaxial CT images of the abdomen and pelvis were performed following the use of intravenous contrast. A dose lowering technique was utilized adhering to the principles of ALARA. COMPARISON STUDY: Abdomen and pelvis CT 07/13/2019. FINDINGS: Mild dependent changes at the lung bases. No suspicious lytic or blastic osseous lesions. Posterior decompression within the lower lumbar spine. Cholecystectomy. The main portal vein is patent. The pancreas, spleen, and adrenal glands unremarkable. Stable 1.2 cm hypodense lesion within the right hepatic lobe. This favors a cyst. Stable 1.4 cm solid enhancing lesion within the right kidney on image 158. A few additional bilateral renal cysts remain unchanged. There are punctate bilateral renal calculi, left greater than right. Multifocal scarring within the left kidney is again noted. There is moderate to severe left-sided hydroureteronephrosis secondary to an obstructing 3 mm stone at the left ureterovesical junction. There are also 2 adjacent 3 mm stones within the distal left ureter on image 381. These are nonobstructing. There is a single mildly enlarged retroperitoneal lymph node on image 185 which has increased in size. This measures 1.4 cm. The uterus is surgically absent. Colonic diverticulosis. No evidence for acute diverticulitis. No bowel wall thickening or obstruction. Normal appendix. Normal caliber abdominal aorta. IMPRESSION: 1. Moderate to severe left-sided hydronephrosis secondary to an obstructing 3 mm stone at the left ureterovesical junction. There are few additional punctate nonobstructing stones within the distal left ureter. 2. Bilateral nephrolithiasis. 3. No change in 1.4 cm solid renal lesion within the right kidney. This is consistent with a small renal cell carcinoma. 4. A single mildly enlarged retroperitoneal lymph node measuring 1.4 cm. This has slightly increased in size compared to the prior study. Six-month follow-up recommended to ensure stability/resolution. ACT 112: Negative or not required by law. Electronically signed by: Rohit Valdivia M.D. 12/26/2020 3:34 PM Dictated: 12/26/201510Transcribed: 12/26/201510 Hospital Course (1) Calculus of ureterovesical junction (UVJ): (2) Hydronephrosis: Presented on admission with left flank pain associated with fever CT ABD/pelvis on admission showed moderate to severe left-sided hydronephrosis secondary to an obstructing 3 mm stone at the left ureterovesical junction Urology on board Continue conservative management since stone is small, she might able to pass it KUB done this morning showed numerous small left renal calculi are noted. Ev aluation for distal left ureteral calculi shown on prior CT is difficult given numerous phleboliths. Currently denies any pain Receive IVF hydration Continue Flomax Follow up with urology outpatient for the stone management Clinically improves significantly Ok from urology standpoint to discharge home (3) Acute UTI: UA positive for bacteria and leukocytes Urine cx positive for gram negative bacilli - Ecoli Currently on Rocephin IV, will transition to Keflex to complete the course of the abx (4) History of pulmonary embolism: Continue Eliquis (5) Hypertension: BP controlled Continue to hold lisinopril Continue monitor BP (6) Hypothyroidism: -Continue levothyroxine (7) DVT prophylaxis: On Eliquis Disposition Discharge home today Follow up with Urology outpatient Total Time Total Time Spent Total Time Spent (In Minutes): 35 minutes Discharge Plan Discharge Items Patient Disposition: Home - Self-Care Reason For Visit: KIDNEY STONE UTI Discharge Diagnosis: (1) Calculus of ureterovesical junction (UVJ): (2) Hydronephrosis: (3) Acute UTI: (4) History of pulmonary embolism: (5) Hypertension: (6) Hypothyroidism: Activity: Resume your previous activity Non-emergency contact: Primary Care Provider and Urologist Call non-emergency contact if: you have any medication questions Follow-up/Referrals: Lamont Mckeon [Primary Care Provider] - Diet: Heart Healthy Addtl Attending Provider Instructions: Follow up with your primary care provider within 1 week (please call to arrange for the appointment) Follow up with urology in 1-2 weeks for the management of kidney stone (please call to arrange for the appointment) Complete the course of the antibiotic Seek medical attention if your symptoms worsening or if you develop any fever Pending Studies at Discharge: No Stand-Alone Forms: My [employer], Smoking Cessation Medications and DC Order Prescriptions: New tamsulosin 0.4 mg Capsule 0.4 mg PO QAM Qty: 30 RF: 0 Continued multivitamin Tablet 1 tab PO QAM Qty: 0 RF: 0 cyanocobalamin (vitamin B-12) 1,000 mcg Tablet 1,000 mcg PO QAM Qty: 0 RF: 0 cholecalciferol (vitamin D3) 1,000 unit (25 mcg) Tablet 1,000 unit PO QAM Qty: 0 RF: 0 lisinopril 10 mg Tablet 10 mg PO QAM Qty: 0 RF: 0 omeprazole 20 mg Tablet,Delayed Release (Dr/Ec) 20 mg PO HS Qty: 0 RF: 0 ropinirole 1 mg tablet 1 mg PO PM RF: 0 atorvastatin 10 mg tablet 10 mg PO HS RF: 0 fluocinonide 0.05 % ointment 1 applic TOPICAL QID RF: 0 levothyroxine 25 mcg tablet 25 mcg PO DAILYBB RF: 0 diphenhydramine HCl [Benadryl Allergy] 25 mg Tablet 25 mg PO HS RF: 0 cholestyramine (with sugar) 4 gram powder in packet 1 ea PO QAM RF: 0 Eliquis 5 mg tablet 5 mg PO BID RF: 0 Discharge Orders: Discharge Order (Routine); Ordered 12/28/20 Ordered By: Logan Simms Admission Data Admit Date/Time: 12/26/20 17:06 Attending Provider: Logan Simms Admit Provider: Logan Simms Primary Care Provider: Lamont Mckeon Other Providers: Logan Simms ; Yaw Lucero Other Interventions: Discharge Summary Assessment (RN) Last Done: 12/28/20 13:54
== END 2020-12-28 14:35 | disposition home or self-care (01) | DRG 694 ==
LOC: ED 12:51 → 2N 17:06